=== PATIENT | male | born 1955 | race Caucasian/White ===

== ENCOUNTER → 2016-06-09 | Outpatient (CLI) | payer OTHER ==
[~2016-06-09] MED LIST: ASP325T PO; ATOR80TA PO; CEFU500T5 PO; CLOP75TA; DABI150C5 PO; METO-333 PO; MTP25TSR PO; NTR.4SL SL; OXYC-12 PO; RANO500T2; SIMV40TA4
== END ==
LOC: RAD 11:12
PROVIDERS: ATTEND Internal Medicine Cardiovascular Disease
DX: I73.9 Peripheral vascular disease, unspecified (principal); I25.10 Atherosclerotic heart disease of native coronary artery without angina pectoris; I49.5 Sick sinus syndrome
CPT/HCPCS: 93923

== ENCOUNTER → 2018-02-01 | Outpatient (CLI) | payer OTHER ==
[~2018-02-01] MED LIST changes: +CATHETER FLUSH 10 ML SYR IV PRN; +REGADENOSON 0.4 MG/5 ML SYR (LEXISCAN) IV ONE
[2018-02-01 09:29] VITALS: BP 120/83
[2018-02-01 09:32] VITALS: BP 111/79
[2018-02-01 09:33] VITALS: BP 133/84
--- NOTE | 2018-02-01 14:55 | STRESS TEST ---
DATE OF SERVICE: 02/01/2018 RESTING AND POST REGADENOSON TECHNETIUM-99M TETROFOSMIN SPECT CT IMAGING ORDERING PHYSICIAN: Comfort Rock MD, CHAGO, FACP, FACC. PRIMARY PHYSICIAN: Dr. Garcia. CLINICAL DIAGNOSIS: Shortness of breath. Baseline images were carried out after injection of 10.77 mCi of technetium-99m Tetrofosmin. This was followed by 0.4 mg regadenoson and 32.4 mCi of technetium-99m Tetrofosmin for stress imaging. The electrocardiogram showed paced ventricular rhythm. There is underlying atrial fibrillation. [place] rhythm is seen from time to time. There is nonspecific ST and T-wave abnormality with the tolowa dee-ni' rhythm. The patient noted some lightheadedness following regadenoson infusion, which resolved in a few minutes. Review of images at rest and following stress does not indicate any distinct perfusion defects consistent with significant myocardial ischemia or infarction. Gated images show global impairment of left ventricular systolic function with global hypokinesis and left ventricular ejection fraction is calculated to be 21%. CONCLUSIONS: 1. No evidence of significant myocardial ischemia or infarction. 2. Global hypokinesis of the left ventricle. 3. Impairment of left ventricular systolic function with a calculated ejection fraction of 21%. Job ID: [id number] DocumentID: [id number] Dictated Date: 02/01/2018 12:26:57 Pharmacy Technician Instructor Date: 02/01/2018 14:54:24 Dictated By: COMFORT ROCK MD, CHAGO, FACP, FACC,
== END ==
LOC: CARD 07:48
PROVIDERS: ATTEND Internal Medicine Cardiovascular Disease
DX: I48.0 Paroxysmal atrial fibrillation (principal); R06.02 Shortness of breath; R07.89 Other chest pain; E78.5 Hyperlipidemia, unspecified; Z72.0 Tobacco use
CPT/HCPCS: 78452; 93017

== ENCOUNTER → 2018-02-28 | Outpatient (CLI) | payer OTHER ==
[~2018-02-28] MED LIST changes: -CATHETER FLUSH 10 ML SYR IV PRN; -REGADENOSON 0.4 MG/5 ML SYR (LEXISCAN) IV ONE
== END ==
LOC: CARD 09:30
PROVIDERS: ATTEND Nurse Practitioner Family
DX: I42.0 Dilated cardiomyopathy (principal); I48.2 Chronic atrial fibrillation; I08.1 Rheumatic disorders of both mitral and tricuspid valves
CPT/HCPCS: 93225; 93226; 93306

== ENCOUNTER 2018-11-26 21:49 | Inpatient (IN) | payer OTHER ==
[~2018-11-26] VITALS: Ht 170.2 cm; Wt 77.5 kg
--- OUTSIDE RECORDS SUMMARY | 2018-11-26 21:54 | XMS REPORT | Continuity of Care Document ---
Author Organization Unknown Address Unknown Allergies Active Description Code Type Severity Reaction Onset Reported/Identified Relationship to Patient Clinical Status Yes cortisone [id number] Drug Allergy Mild N/A 09/18/2008 Yes Isosorbide Mononitrate [id number] Drug Allergy Unknown N/A 02/26/2011 Medications There is no data. Problems Date Dx Coded Attending Type Code Diagnosis Diagnosed By 02/18/2011 Ot 272.4 HYPERLIPIDEMIA NEC/NOS 02/18/2011 Ot 305.1 TOBACCO USE DISORDER 02/18/2011 Ot 414.01 CORONARY ATHEROSCLEROSIS OF [place] CORON 02/18/2011 Ot 427.81 SINOATRIAL NODE DYSFUNCT 02/18/2011 Ot 530.81 ESOPHAGEAL REFLUX 02/18/2011 Ot 786.59 CHEST PAIN NEC 02/18/2011 Ot V58.66 LONG-TERM (CURRENT) USE OF ASPIRIN 02/18/2011 Ot V58.69 OTH MED,LT,CURRENT USE 02/27/2011 Ot 413.9 ANGINA PECTORIS NEC/NOS 02/27/2011 Ot 414.01 CORONARY ATHEROSCLEROSIS OF [place] CORON 02/27/2011 Ot 427.31 ATRIAL FIBRILLATION 02/27/2011 Ot 427.32 ATRIAL FLUTTER 02/27/2011 Ot 427.81 SINOATRIAL NODE DYSFUNCT 02/27/2011 Ot 780.79 OTH MALAISE FATIGUE 02/27/2011 Ot V58.61 ANTICOAGULANTS,LT,CURRENT USE 02/27/2011 Ot V58.66 LONG-TERM (CURRENT) USE OF ASPIRIN 02/27/2011 Ot V58.69 OTH MED,LT,CURRENT USE 02/05/2016 ARSENIO WILSON GARNETTER Ot E78.4 OTHER HYPERLIPIDEMIA 02/05/2016 ARSENIO WILSON GARNETTER Ot I25.10 ATHSCL HEART DISEASE OF [place] CORONARY 02/05/2016 ARSENIO WILSON GARNETTER Ot I48.2 CHRONIC ATRIAL FIBRILLATION 02/05/2016 ARSENIO WILSON GARNETTER Ot I49.5 SICK SINUS SYNDROME 02/05/2016 BAIMAARSENIO L GARNETTER Ot R07.9 CHEST PAIN, UNSPECIFIED 02/05/2016 BAIMA, ARSENIO L GARNETTER Ot E78.4 OTHER HYPERLIPIDEMIA 02/05/2016 BAIMA, ARSENIO L GARNETTER Ot I25.10 ATHSCL HEART DISEASE OF [place] CORONARY 02/05/2016 BAIMA, ARSENIO L GARNETTER Ot I48.2 CHRONIC ATRIAL FIBRILLATION 02/05/2016 BAIMA, ARSENIO L GARNETTER Ot I49.5 SICK SINUS SYNDROME 02/05/2016 BAIMA, ARSENIO L GARNETTER Ot R07.9 CHEST PAIN, UNSPECIFIED 02/25/2016 BAIMA, ARSENIO L GARNETTER Ot E78.4 OTHER HYPERLIPIDEMIA 02/25/2016 BAIMA, ARSENIO L GARNETTER Ot I25.10 ATHSCL HEART DISEASE OF [place] CORONARY 02/25/2016 BAIMA ARSENIO L GARNETTER Ot I48.2 CHRONIC ATRIAL FIBRILLATION 02/25/2016 BAIMA, ARSENIO L GARNETTER Ot I49.5 SICK SINUS SYNDROME 02/25/2016 BAIMA ARSENIO L GARNETTER Ot R07.9 CHEST PAIN, UNSPECIFIED 03/05/2016 Ot 414.00 CORON ATHEROSCLER NOS TYPE VESSEL, NATIV 03/05/2016 Ot 427.31 ATRIAL FIBRILLATION 03/05/2016 Ot 427.89 CARDIAC DYSRHYTHMIAS NEC 03/05/2016 Ot 780.79 OTH MALAISE FATIGUE 03/05/2016 Ot V58.66 LONG-TERM (CURRENT) USE OF ASPIRIN 03/05/2016 Ot V58.69 OTH MED,LT,CURRENT USE 03/05/2016 Ot V72.63 PRE-PROCEDURAL LABORATORY EXAMINATION 03/05/2016 Ot V72.81 [id number] CARDIOVASCULAR 03/05/2016 COLLEEN JARAMILLO FACC, FELICIA FACP CCDS Ot 272.4 HYPERLIPIDEMIA NEC/NOS 03/05/2016 COLLEEN JARAMILLO FACC, FELICIA FACP CCDS Ot 305.1 TOBACCO USE DISORDER 03/05/2016 COLLEEN JARAMILLO FACC, FELICIA FACP CCDS Ot 414.00 CORON ATHEROSCLER NOS TYPE VESSEL, NATIV 03/05/2016 COLLEEN JARAMILLO FACC, FELICIA FACP CCDS Ot 427.31 ATRIAL FIBRILLATION 03/05/2016 COLLEEN JARAMILLO FACC, FELICIA FACP CCDS Ot 427.32 ATRIAL FLUTTER 03/05/2016 COLLEEN JARAMILLO FACC, ALI FACP CCDS Ot 427.81 SINOATRIAL NODE DYSFUNCT 03/05/2016 COLLEEN JARAMILLO FACC, ALI FACP CCDS Ot 530.81 ESOPHAGEAL REFLUX 03/05/2016 COLLEEN JARAMILLO FACC, ALI FACP CCDS Ot 786.50 CHEST PAIN NOS 03/05/2016 BAIMA, ARSENIO L GARNETTER Ot E78.4 OTHER HYPERLIPIDEMIA 03/05/2016 BAIMA, ARSENIO L GARNETTER Ot I25.10 ATHSCL HEART DISEASE OF [place] CORONARY 03/05/2016 BAIMA, ARSENIO L GARNETTER Ot I48.2 CHRONIC ATRIAL FIBRILLATION 03/05/2016 BAIMA, ARSENIO L GARNETTER Ot I49.5 SICK SINUS SYNDROME 03/05/2016 BAIMA, ARSENIO L GARNETTER Ot R07.9 CHEST PAIN, UNSPECIFIED 03/05/2016 BAIMA, ARSENIO L GARNETTER Ot E78.4 OTHER HYPERLIPIDEMIA 03/05/2016 BAIMA, ARSENIO L GARNETTER Ot I25.10 ATHSCL HEART DISEASE OF [place] CORONARY 03/05/2016 BAIMA, ARSENIO L GARNETTER Ot I42.9 CARDIOMYOPATHY, UNSPECIFIED 03/05/2016 BAIMA, ARSENIO L GARNETTER Ot I48.2 CHRONIC ATRIAL FIBRILLATION 03/05/2016 BAIMA, ARSENIO L GARNETTER Ot I49.8 OTHER SPECIFIED CARDIAC ARRHYTHMIAS 03/05/2016 BAIMA, ARSENIO L GARNETTER Ot I65.23 OCCLUSION AND STENOSIS OF BILATERAL [place] 03/05/2016 BAIMA, ARSENIO L GARNETTER Ot I73.9 PERIPHERAL VASCULAR DISEASE, UNSPECIFIED 03/05/2016 BAIMA, ARSENIO L GARNETTER Ot R06.09 OTHER FORMS OF DYSPNEA 03/26/2016 BAIMA, ARSENIO L GARNETTER Ot E78.4 OTHER HYPERLIPIDEMIA 03/26/2016 BAIMA, ARSENIO L GARNETTER Ot I25.10 ATHSCL HEART DISEASE OF [place] CORONARY 03/26/2016 BAIMA, ARSENIO L GARNETTER Ot I42.9 CARDIOMYOPATHY, UNSPECIFIED 03/26/2016 BAIMA, ARSENIO L GARNETTER Ot I48.2 CHRONIC ATRIAL FIBRILLATION 03/26/2016 BAIMA, ARSENIO L GARNETTER Ot I49.8 OTHER SPECIFIED CARDIAC ARRHYTHMIAS 03/26/2016 BAIMA, ARSENIO L GARNETTER Ot I65.23 OCCLUSION AND STENOSIS OF BILATERAL [place] 03/26/2016 BAIMA, ARSENIO L GARNETTER Ot I73.9 PERIPHERAL VASCULAR DISEASE, UNSPECIFIED 03/26/2016 ARSENIO WILSON GARNETTER Ot R06.09 OTHER FORMS OF DYSPNEA 06/10/2016 COLLEEN BRITTON, ALI FACP CCDS Ot I25.10 ATHSCL HEART DISEASE OF [place] CORONARY 06/10/2016 COLLEEN JARAMILLO FAC, ALI FACP CCDS Ot I49.5 SICK SINUS SYNDROME 06/10/2016 COLLEEN JARAMILLO [facility], ALI FACP CCDS Ot I73.9 PERIPHERAL VASCULAR DISEASE, UNSPECIFIED 06/25/2016 COLLEEN JARAMILLO FAC, ALI FACP CCDS Ot I25.10 ATHSCL HEART DISEASE OF [place] CORONARY 06/25/2016 COLLEEN JARAMILLO [facility], ALI FACP CCDS Ot I49.5 SICK SINUS SYNDROME 06/25/2016 COLLEEN JARAMILLO [facility], ALI FACP CCDS Ot I73.9 PERIPHERAL VASCULAR DISEASE, UNSPECIFIED 02/02/2018 COLLEEN JARAMILLO [facility], ALI FACP CCDS Ot E78.5 HYPERLIPIDEMIA, UNSPECIFIED 02/02/2018 COLLEEN JARAMILLO [facility], ALI FACP CCDS Ot I48.0 PAROXYSMAL ATRIAL FIBRILLATION 02/02/2018 COLLEEN JARAMILLO [facility], ALI FACP CCDS Ot R06.02 SHORTNESS OF BREATH 02/02/2018 COLLEEN JARAMILLO [facility], ALI FACP CCDS Ot R07.89 OTHER CHEST PAIN 02/02/2018 COLLEEN JARAMILLO [facility], ALI FACP CCDS Ot Z72.0 TOBACCO USE Procedures There is no data. Results Test Result Range LIPID PANEL - 09/15/18 12:05 CHOLESTEROL, TOTAL 120 mg/dL <200 HDL CHOLESTEROL 59 mg/dL >40 TRIGLYCERIDES 86 mg/dL <150 LDL-CHOLESTEROL 44 mg/dL (calc) NRG CHOL/HDLC RATIO 2.0 (calc) <5.0 NON HDL CHOLESTEROL 61 mg/dL (calc) <130 CMP - 09/15/18 12:05 GLUCOSE 88 mg/dL 65-99 UREA NITROGEN (BUN) 6 mg/dL 7-25 CREATININE 0.81 mg/dL 0.70-1.25 eGFR NON-AFR. [place] 95 mL/min/1.73m2 > OR=60 eGFR 110 mL/min/1.73m2 > OR=60 BUN/CREATININE RATIO 7 (calc) 6-22 SODIUM 142 mmol/L 135-146 POTASSIUM 4.3 mmol/L 3.5-5.3 CHLORIDE 109 mmol/L 98-110 CARBON DIOXIDE 27 mmol/L 20-32 CALCIUM 8.6 mg/dL 8.6-10.3 PROTEIN, TOTAL 6.0 g/dL 6.1-8.1 ALBUMIN 3.8 g/dL 3.6-5.1 GLOBULIN 2.2 g/dL (calc) 1.9-3.7 ALBUMIN/GLOBULIN RATIO 1.7 (calc) 1.0-2.5 BILIRUBIN, TOTAL 0.4 mg/dL 0.2-1.2 ALKALINE PHOSPHATASE 76 U/L 40-115 AST 20 U/L 10-35 ALT 17 U/L 9-46 Encounters ACCT No. Visit Date/Time Discharge Status Pt. Type Provider Facility Loc./Unit Complaint [id number] 11/25/2018 14:00:00 ACT Outpatient PATRICIO MARY Duarte [facility] [id number] 09/15/2018 11:20:00 Document Registration [id number] 02/28/2018 10:00:00 02/28/2018 23:59:59 CLS Preadmit ARSENIO WILSON [facility] CARD DILATED CARDIOMYOPATHY [id number] 02/01/2018 07:48:00 02/01/2018 23:59:59 CLS Outpatient FELICIA MACIAS MD, FACC, FACP CCDS [facility] CARD R06.02 SOB [id number] 06/09/2016 11:12:00 06/09/2016 23:59:59 CLS Outpatient FELICIA MACIAS MD, FACC, FACP CCDS [facility] RAD CLAUDICATION,CAD [id number] 03/05/2016 13:09:00 03/05/2016 23:59:59 CLS Outpatient ARSENIO WILSON [facility] CARD CARIOMYOPATHY,CAD,CAROTID ARTERIAL DISEASE,HLP [id number] 02/04/2016 07:23:00 02/04/2016 23:59:59 CLS Outpatient ARSENIO WILSON [facility] CARD CHEST PAIN,CAD,CHRONIC AFIB,HLP [id number] 07/17/2013 10:43:00 07/17/2013 23:59:59 CLS Outpatient COLLEEN JARAMILLO FACC, FELICIA BRASWELL CCDS [facility] HLP,CAD,AFIB [id number] 02/26/2011 05:31:00 Document Registration [id number] 02/25/2011 10:11:00 Document Registration [id number] 02/17/2011 15:40:00 Document Registration
[2018-11-26] MEDS ORDERED: NS IV 1000 ML 1,000 ML IV SCH (21:58)
[2018-11-26] MEDS ORDERED: FOLIC ACID 1 MG TAB PO ONE (22:00)
[2018-11-26] MEDS ORDERED: THIAMINE 100 MG (VITAMIN B-1) TAB PO ONE (22:00)
--- NOTE | 2018-11-26 22:08 | ED Fall/Injury ---
General Chief Complaint: Hip/Pelvic Problems Stated Complaint: FALL, LEFT ANKLE PAIN Source: patient Exam Limitations: no limitations History of Present Illness Date Seen by Provider: Nov 26, 2018 Time Seen by Provider: 21:44 Initial Comments Patient presents to ER by private conveyance. EMS from his bar where he was dropped off about 5 or 6:00 his evening by his and he says he had at least 5 beers tonight. He then said his leg gave out from underneath him and his been having problems with his left knee. He fell and is now having pain in his left hip region. No history of hip fracture. He says he sees Mary Curry. He denies any pain elsewhere. He says did not hit his head have shortness of breath cough chest pain. He does take warfarin. Allergies and Home Medications Allergies Coded Allergies: cortisone (Unverified Allergy, Mild, 09/18/08) Isosorbide Mononitrate (Unverified Allergy, Unknown, 02/26/11) Home Medications Aspirin 325 Mg Tab, 325 MG PO DAILY, (Reported) Atorvastatin Calcium 80 Mg Tablet, 80 MG PO HS, (Reported) Cefuroxime Axetil 500 Mg Tablet, 500 MG PO BID, (Reported) FOR 5 DAYS Dabigatran Etexilate Mesylate 150 Mg Capsule, 150 MG PO BID, (Reported) HOLD ON 02-28, RESUME ON - Nitroglycerin 0.4 Mg Subl, 0.4 MG SL NEEDED, (Reported) Oxycodone Hcl/Acetaminophen 1 Each Tablet, 1 TAB PO Q 8 HRS. PRN PAIN, (Reported) Patient Home Medication List Home Medication List Reviewed: Yes Review of Systems Review of Systems Constitutional: No chills, No diaphoresis Eyes: Denies Blindness, Denies Blurred Vision Ears, Nose, Mouth, Throat: denies ear pain, denies ear discharge Respiratory: No cough, No short of breath Cardiovascular: No chest pain, No edema Gastrointestinal: No abdominal pain, No constipation, No diarrhea, No nausea Genitourinary: No discharge, No dysuria Musculoskeletal: No back pain, No joint pain Skin: No pruritus, No rash Past Fnqprfm-Gizurq-Zwwfke Hx Patient Social History Alcohol Use: Regular Use Number of Drinks Today: 6 Alcohol Beverage of Choice: Beer Recreational Drug Use: No Smoking Status: Current Everyday Smoker Recent Foreign Travel: No Contact w/Someone Who Travel: No Recent Hopitalizations: No (BROKEN ANKLE LEFT APPRX 1995, RIGHT SHOULDER SURG APPRX 1982) Past Medical History Surgeries: Yes (RIGHT SHOULDER AND LEFT ANKLE SURG, hernia repair 1999) Respiratory: Yes Cardiac: Yes Neurological: No Reproductive Disorders: No Gastrointestinal: No Musculoskeletal: No Endocrine: No Psychosocial: No Blood Disorders: No Physical Exam Vital Signs Vital Signs - First Documented 11/26/18 11/26/18 21:58 23:30 Temp 97.6 Pulse 120 Resp 18 B/P (MAP) 127/100 (109) Pulse Ox 95 O2 Delivery Room Air Capillary Refill : Height, Weight, BMI Height: 5'7.00" Weight: 160lbs. oz. 72.465794yt; BMI Method: General Appearance: WD/WN, no apparent distress HEENT: PERRL/EOMI, normal ENT inspection, TMs normal, pharynx normal, other (negative for Barrientos sign and raccoon eyes or hemotympanum) Neck: non-tender, full range of motion, normal inspection Cardiovascular: normal peripheral pulses, regular rate, rhythm, no edema Respiratory: chest non-tender, lungs clear, normal breath sounds, no respiratory distress, no accessory muscle use Peripheral Pulses: 2+ Dorsalis Pedis (R), 2+ Left Dors-Pedis (L) Gastrointestinal: normal bowel sounds, non tender, soft Neurologic/Psychiatric: ear nose and throat specialist II-XII nml as tested, no motor/sensory deficits, alert, normal mood/affect, oriented x 3, other (Mild slurring of speech and tangential radiation) Skin: normal color, warm/dry Ramona Coma Score Best Eye Response: (4) Open Spontaneously Best Verbal Response: (5) Oriented Best Motor Response: (6) Obeys Commands Ramona Total: 15 Progress/Results/Core Measures Results/Orders Lab Results Laboratory Tests Test 11/26/18 21:53 11/26/18 22:10 11/26/18 22:56 Range/Units Prothrombin Time 27.9 H 12.2-14.7 SEC INR Comment 2.5 H 0.8-1.4 Activated Partial Thromboplast Time 34 24-35 SEC Sodium Level 134 L 135-145 MMOL/L Potassium Level 3.7 3.6-5.0 MMOL/L Chloride Level 101 98-107 MMOL/L Carbon Dioxide Level 19 L 21-32 MMOL/L Anion Gap 14 5-14 MMOL/L Blood Urea Nitrogen 5 L 7-18 MG/DL Creatinine 0.79 0.60-1.30 MG/DL Estimat Glomerular Filtration Rate > 60 BUN/Creatinine Ratio 6 Glucose Level 85 70-105 MG/DL Calcium Level 8.2 L 8.5-10.1 MG/DL Corrected Calcium 8.4 L 8.5-10.1 MG/DL Magnesium Level 2.1 1.8-2.4 MG/DL Total Bilirubin 0.2 0.1-1.0 MG/DL Aspartate Amino Transf (AST/SGOT) 25 5-34 U/L Alanine Aminotransferase (ALT/SGPT) 22 0-55 U/L Alkaline Phosphatase 81 40-136 U/L Total Protein 6.3 L 6.4-8.2 GM/DL Albumin 3.7 3.2-4.5 GM/DL Serum Alcohol 230 H <10 MG/DL Urine Color YELLOW Urine Clarity CLEAR Urine pH 5 5-9 Urine Specific [place] 1.020 1.016-1.022 Urine Protein NEGATIVE NEGATIVE Urine Glucose (UA) NEGATIVE NEGATIVE Urine Ketones NEGATIVE NEGATIVE Urine Nitrite NEGATIVE NEGATIVE Urine Bilirubin NEGATIVE NEGATIVE Urine Urobilinogen NORMAL NORMAL MG/DL Urine Leukocyte Esterase 1+ H NEGATIVE Urine RBC (Auto) 4+ H NEGATIVE Urine RBC RARE /HPF Urine WBC 0-2 /HPF Urine Squamous Epithelial Cells RARE /HPF Urine Crystals NONE /LPF Urine Bacteria TRACE /HPF Urine Casts PRESENT /LPF Urine Hyaline Casts 0-2 H /LPF Urine Mucus SMALL H /LPF Urine Culture Indicated NO Urine Opiates Screen POSITIVE H NEGATIVE Urine Oxycodone Screen NEGATIVE NEGATIVE Urine Methadone Screen NEGATIVE NEGATIVE Urine Propoxyphene Screen NEGATIVE NEGATIVE Urine Barbiturates Screen NEGATIVE NEGATIVE Ur Tricyclic Antidepressants Screen NEGATIVE NEGATIVE Urine Phencyclidine Screen NEGATIVE NEGATIVE Urine Amphetamines Screen NEGATIVE NEGATIVE Urine Methamphetamines Screen NEGATIVE NEGATIVE Urine Benzodiazepines Screen NEGATIVE NEGATIVE Urine Cocaine Screen NEGATIVE NEGATIVE Urine Cannabinoids Screen NEGATIVE NEGATIVE White Blood Count 10.4 4.3-11.0 10^3/uL Red Blood Count 4.36 4.35-5.85 10^6/uL Hemoglobin 13.4 13.3-17.7 G/DL Hematocrit 40 40-54 % Mean Corpuscular Volume 92 80-99 FL Mean Corpuscular Hemoglobin 31 25-34 PG Mean Corpuscular Hemoglobin Concent 33 32-36 G/DL Red Cell Distribution Width 13.4 10.0-14.5 % Platelet Count 349 130-400 10^3/uL Mean Platelet Volume 8.6 7.4-10.4 FL Neutrophils (%) (Auto) 71 42-75 % Lymphocytes (%) (Auto) 17 12-44 % Monocytes (%) (Auto) 11 0-12 % Eosinophils (%) (Auto) 1 0-10 % Basophils (%) (Auto) 0 0-10 % Neutrophils # (Auto) 7.4 1.8-7.8 X 10^3 Lymphocytes # (Auto) 1.8 1.0-4.0 X 10^3 Monocytes # (Auto) 1.1 H 0.0-1.0 X 10^3 Eosinophils # (Auto) 0.1 0.0-0.3 10^3/uL Basophils # (Auto) 0.0 0.0-0.1 10^3/uL My Orders Orders - GLENDY FRAZIER Ct Head/Cervical Spine Wo (11/26/18 21:58) Chest 1 View, Ap/Pa Only (11/26/18 21:58) Pelvis With Left Hip 2-3 Views (11/26/18 21:58) Alcohol (11/26/18 21:58) Cbc With Automated Diff (11/26/18 21:58) Comprehensive Metabolic Panel (11/26/18 21:58) Drug Screen Stat (Urine) (11/26/18 21:58) Magnesium (11/26/18 21:58) Protime With Inr (11/26/18 21:58) Partial Thromboplastin Time (11/26/18 21:58) Ua Culture If Indicated (11/26/18 21:58) Ed Iv/Invasive Line Start (11/26/18 21:58) Ns Iv 1000 Ml (Sodium Chloride 0.9%) (11/26/18 21:58) Thiamine Tablet (Vitamin B-1 Tablet) (11/26/18 22:00) Folic Acid Tablet (Folic Acid Tablet) (11/26/18 22:00) Thiamine Injection (Vitamin B-1 Injectio (11/26/18 23:30) Thiamine Injection (Vitamin B-1 Injectio (11/26/18 23:21) Fentanyl Injection (Sublimaze Injection (11/26/18 23:30) Ekg Tracing (11/27/18 00:00) Medications Given in ED Current Medications Medications Dose Ordered Sig/Lisa Route Start Time Stop Time Status Last Admin Dose Admin Fentanyl Citrate 100 mcg STK-MED ONCE .ROUTE 11/26/18 23:30 11/26/18 23:35 DC 11/26/18 23:36 50 MCG Folic Acid 1 mg ONCE ONCE PO 11/26/18 22:00 11/26/18 22:04 DC 11/26/18 22:54 1 MG Thiamine HCl 100 mg ONCE ONCE IV 11/26/18 23:30 11/26/18 23:31 DC 11/26/18 23:30 100 MG Vital Signs/I&O 11/26/18 11/26/18 21:58 23:30 Temp 97.6 Pulse 120 121 Resp 18 18 B/P (MAP) 127/100 (109) 96/76 (83) Pulse Ox 95 O2 Delivery Room Air Progress Progress Note #1: Time: 22:[address] of the head and neck, x-ray of the chest and left hip. Labs urinalysis drug screen and alcohol level. 1 L fluids, thiamine and folate. Progress Note #2: Time: 00:32 Progress Note Patient's heart rate shot up to the 180-190 range irregular. On the monitor to look like A. fib with rapid ventricular response. Lasted spontaneously for about 1 minute. IV fluids still going on the first liter. Pressure bag. We'll monitor Cardizem drip. He is now down in the 120-140 range. The patient states he is supposed to take diltiazem but he never takes it. Initial ECG Impression Date: Nov 27, 2018 Initial ECG Impression Time: 00:00 Initial ECG Rate: 109 Initial ECG Rhythm: A Fib/Flutter Initial ECG Intervals: QT (442) Initial ECG Impression: Atrial Fibrillation Comment Atrial fibrillation without rapid ventricular response. No ST elevation or depression. Diagnostic Imaging Diagonstic Imaging: CT (noncontrast) Plain Films/CT/US/NM/MRI: c-spine, head Comments No acute intracranial processes. No C-spine fracture or malalignment. Reviewed: Reviewed by Me Diagonstic Imaging: Xray Plain Films/CT/US/NM/MRI: chest Comments No acute cardiopulmonary processes noted. Pacemaker seen. Reviewed: Reviewed by Me Diagonstic Imaging: Xray Plain Films/CT/US/NM/MRI: hip (L) Comments Distal neck fracture of the left femur nondisplaced non-angulated, closed. Reviewed: Reviewed by Me Departure Communication (Admissions) Time/Spoke to Admitting Phy: 00:[address] Cotto and she agrees to admit the patient. Time/Spoke to Consulting Phy: 00:[address] Cavanaugh and he agrees to consult and see the patient the morning. Discussed case with Dr. Nielson at 0035: He agrees with Keith lanier. Impression Primary Impression: Fall Qualified Codes: W19.XXXA - Unspecified fall, initial encounter Additional Impressions: Closed left femoral fracture Qualified Codes: S72.002A - Fracture of unspecified part of neck of left femur, initial encounter for closed fracture Alcohol dependence Qualified Codes: F10.20 - Alcohol dependence, uncomplicated Disposition: ADMITTED INPATIENT Condition: Stable Admissions Decision to Admit Reason: Admit from ER (General) Decision to Admit/Date: Nov 26, 2018 Time/Decision to Admit Time: 23:48 Departure-Patient Inst. Referrals: ADELA SALDIVAR MD (PCP) Primary Care Physician MARY CURRY APRN (Family) Primary Care Physician GLENDY FRAZIER Nov 26, 2018 22:08
[2018-11-26 22:15] LABS: INR 2.5 (0.8-1.4); PROTHROMBIN TIME PATIENT 27.9 SEC (12.2-14.7)
[2018-11-26 22:15] LABS: BILIRUBIN,URINE NEGATIVE (NEGATIVE); CLARITY,URINE CLEAR; COLOR,URINE YELLOW; GLUCOSE, URINE (UA) NEGATIVE (NEGATIVE); KETONES,URINE NEGATIVE (NEGATIVE); LEUKOCYTE ESTERASE ,URINE 1+ (NEGATIVE); NITRITE,URINE NEGATIVE (NEGATIVE); PH,URINE 5 (5-9); PROTEIN,URINE NEGATIVE (NEGATIVE); UROBILINOGEN,URINE NORMAL (NORMAL)
[2018-11-26 22:21] LABS: BACTERIA,URINE TRACE /HPF; RBC,URINE RARE /HPF; WBC,URINE 0-2 /HPF
[2018-11-26 22:22] LABS: HYALINE CASTS, URINE 0-2 /LPF; SQUAMOUS EPITHELIAL CELL,UR RARE /HPF
[2018-11-26 22:23] LABS: ALANINE AMINOTRANSFERASE 22 U/L (0-55); ALBUMIN 3.7 GM/DL (3.2-4.5); ALKALINE PHOSPHATASE 81 U/L (40-136); BILIRUBIN,TOTAL 0.2 MG/DL (0.1-1.0); BUN/CREATININE RATIO 6; CALCIUM 8.2 MG/DL (8.5-10.1); CARBON DIOXIDE 19 MMOL/L (21-32); CHLORIDE 101 MMOL/L (98-107); CREATININE SERUM 0.79 MG/DL (0.60-1.30); GFR ESTIMATED > 60; GLUCOSE 85 MG/DL (70-105); MAGNESIUM 2.1 MG/DL (1.8-2.4); POTASSIUM 3.7 MMOL/L (3.6-5.0); SODIUM 134 MMOL/L (135-145); TOTAL PROTEIN 6.3 GM/DL (6.4-8.2)
[2018-11-26 22:26] LABS: AMPHETAMINE SCREEN, URINE NEGATIVE (NEGATIVE); BARBITURATE SCREEN URINE NEGATIVE (NEGATIVE); BENZODIAZEPINES SCREEN URINE NEGATIVE (NEGATIVE); CANNABINOID SCREEN, URINE NEGATIVE (NEGATIVE); COCAINE SCREEN URINE NEGATIVE (NEGATIVE); METHADONE STAT NEGATIVE (NEGATIVE); METHAMPHETAMINE SCREEN URINE S NEGATIVE (NEGATIVE); OPIATE SCREEN URINE POSITIVE (NEGATIVE); OXYCODONE STAT NEGATIVE (NEGATIVE); PROPOXYPHENE STAT NEGATIVE (NEGATIVE); TRICYCLIC ANTIDEPRESSANTS SCRE NEGATIVE (NEGATIVE)
[2018-11-26 23:02] LABS: BASOPHILS % (AUTO) 0 % (0-10); EOSINOPHILS # (AUTO) 0.1 10^3/uL (0.0-0.3); EOSINOPHILS % (AUTO) 1 % (0-10); HEMATOCRIT 40 % (40-54); HEMOGLOBIN 13.4 G/DL (13.3-17.7); LYMPHOCYTES # (AUTO) 1.8 X 10^3 (1.0-4.0); LYMPHOCYTES % (AUTO) 17 % (12-44); MEAN CORPUSCULAR HEMOGLOBIN 31 PG (25-34); MEAN CORPUSCULAR HGB CONC 33 G/DL (32-36); MEAN CORPUSCULAR VOLUME 92 FL (80-99); MEAN PLATELET VOLUME 8.6 FL (7.4-10.4); MONOCYTES # (AUTO) 1.1 X 10^3 (0.0-1.0); MONOCYTES % (AUTO) 11 % (0-12); NEUTROPHILS # (AUTO) 7.4 X 10^3 (1.8-7.8); NEUTROPHILS % (AUTO) 71 % (42-75); PLATELET COUNT 349 10^3/uL (130-400); RED CELL DISTRIBUTION WIDTH 13.4 % (10.0-14.5); WHITE BLOOD COUNT 10.4 10^3/uL (4.3-11.0)
[2018-11-26] MEDS ORDERED: THIAMINE 100 MG/ML 2 ML (VITAMIN B-1) VIAL ONE (23:21)
[2018-11-26] MEDS ORDERED: fentaNYL INJECTION 100 MCG/2 ML AMP ONE (23:30)
[2018-11-26] MEDS ORDERED: THIAMINE 100 MG/ML 2 ML (VITAMIN B-1) VIAL IV ONE (23:30)
--- NOTE | 2018-11-26 23:30 | NUR ---
ASSUMED CARE OF THIS PATIENT AT THIS TIME.
[2018-11-27] VITALS (22 sets, daily range): BP systolic 101–126; BP diastolic 65–106
[2018-11-27] MEDS ORDERED: fentaNYL INJECTION 100 MCG/2 ML AMP ONE (00:01)
[2018-11-27] MEDS ORDERED: fentaNYL INJECTION 100 MCG/2 ML AMP IVP ONE (00:15)
[2018-11-27] MEDS ORDERED: NS (IVPB) 100 ML ONE ×2 (00:47→19:55)
[2018-11-27] MEDS: DILTIAZEM IV FOR DRIP 125 MG in NS (IVPB) 100 ML IV SCH ×2 (00:57→20:11)
--- NOTE | 2018-11-27 02:00 | NUR ---
LINSEY CASANOVA admitted to room CU8-1, with an admitting diagnosis of Afib/RVR,fx left femur, on 11/27/18 from ED, accompanied by .LINSEY CASANOVA introduced to surroundings, call light, bed controls, phone, TV, temperature control, lights, meal times, smoking policy, visitor policy, side rail policy, bathrooms and showers. Patient Rights given to patient in the handbook. LINSEY CASANOVA verbalizes understanding that [facility] is not responsible for the loss or damage to any personal effects or valuables that are kept in the patients possession during their hospitalization. The following Patient Care Plans were discussed with the patient and : Discharge Planning, pain,activity, and room orientation. LINSEY CASANOVA verbalizes understanding of Interdisciplinary Patient Education. Patient and/or family were informed about the Rapid Response Team and its purpose.
[2018-11-27] MEDS ORDERED: D5 1/2 NS W/KCL 20 MEQ/L 1,000 ML IV ONE (02:10)
[2018-11-27] MEDS ORDERED: fentaNYL INJECTION 100 MCG/2 ML AMP IVP PRN (02:30)
[2018-11-27] MEDS ORDERED: 1/2 NS IV SOLUTION 1,000 ML IV PRN (02:56)
[2018-11-27] MEDS ORDERED: D5 1/2 NS 1000 ML IV SOLUTION 1,000 ML IV PRN (03:00)
[2018-11-27] MEDS ORDERED: fentaNYL INJECTION 100 MCG/2 ML AMP IV PRN (03:00)
[2018-11-27] MEDS ORDERED: ONDANSETRON 4 MG/2 ML (SDV) Z0FRAN IVP PRN (03:00)
[2018-11-27] MEDS ORDERED: ONDANSETRON 4 MG (ZOFRAN) ORAL DISSOLVE TAB SL PRN (03:00)
[2018-11-27] MEDS ORDERED: LORazepam 1 MG (ATIVAN) TAB PO PRN (03:00)
[2018-11-27] MEDS ORDERED: SENNA W/DOCUSATE (SENOKOT S) TABLET PO PRN (03:00)
[2018-11-27] MEDS ORDERED: LORazepam INJ 2 MG/ML (ATIVAN) VIAL IV PRN (03:00)
[2018-11-27] MEDS ORDERED: ANTACID SUSP 30 ML UDC (MYLANTA) PO PRN (03:00)
[2018-11-27] MEDS ORDERED: LORazepam INJ 2 MG/ML (ATIVAN) VIAL IM/IV PRN (03:00)
[2018-11-27] MEDS ORDERED: ONDANSETRON 4 MG/2 ML (SDV) Z0FRAN IV PRN ×2 (03:00)
[2018-11-27] MEDS: D5 1/2 NS W/KCL 20 MEQ/L 1,000 ML IV SCH ×7 (03:05→23:02)
[2018-11-27] MEDS: fentaNYL INJECTION 100 MCG/2 ML AMP IVP PRN ×9 (05:18→22:29)
[2018-11-27] MEDS: POTASSIUM CL 10MEQ/50ML IVPB 50 ML IV SCH (05:19)
[2018-11-27] MEDS: KCL 20 MEQ TAB (K-DUR) PO SCH (05:19)
[2018-11-27] MEDS: MAGNESIUM 1 GM/100 ML IVPB 100 ML IV SCH (05:19)
--- NOTE | 2018-11-27 07:25 | Diagnostic Imaging Report ---
PROCEDURE: CT head and CT cervical spine without contrast. TECHNIQUE: Multiple contiguous axial images were obtained through the brain and cervical spine without the use of intravenous contrast. Sagittal and coronal reformations through the cervical spine were then performed. Auto Exposure Controls were utilized during the CT exam to meet ALARA standards for radiation dose reduction. INDICATION: Status post fall, trauma. COMPARISON: None CT HEAD FINDINGS: The ventricles and sulci are within normal limits. There is no midline shift or mass effect. No evidence for acute intracranial hemorrhage or extra-axial fluid collections. The bony calvarium is intact and the paranasal sinuses are clear. CT CERVICAL SPINE FINDINGS: There is normal alignment and curvature of the cervical spine. There is no evidence for acute bony abnormality. The odontoid is intact. The prevertebral soft tissues are normal. IMPRESSION: 1. No acute intracranial abnormality. 2. No evidence for acute cervical spine fracture or subluxation. A preliminary report was provided by [facility]. Dictated by: Dictated on workstation # [id number]
--- NOTE | 2018-11-27 07:40 | Diagnostic Imaging Report ---
INDICATION: Left hip pain post fall TECHNIQUE: AP pelvis along with 2 views of the left hip, 10:41 PM CORRELATION STUDY: None FINDINGS: The pelvis demonstrates no evidence for acute fracture. The pectineal lines and obturator rings are maintained. Pubic symphysis and SI joints are unremarkable. Right hip with mild joint space narrowing. A slightly comminuted fracture through the intertrochanteric region of proximal left femur is present. The alignment overall is generally anatomic. The femoral head acetabular relationship appears maintained. IMPRESSION: Relatively nondisplaced fracture through the intertrochanteric portion of the left proximal femur. Dictated by: Dictated on workstation # [id number]
--- NOTE | 2018-11-27 07:42 | Diagnostic Imaging Report ---
INDICATION: Left hip pain post fall. TECHNIQUE: Single view chest 10:40 PM. CORRELATION STUDY: 02/26/2011 FINDINGS: Left-sided dual-chamber pacemaker is present. Heart size and mediastinum are stable. The lungs are clear with no consolidating infiltrate. There is no significant effusion or pneumothorax. IMPRESSION: 1. Negative for acute abnormality of the chest. Dictated by: Dictated on workstation # [id number]
[2018-11-27] MEDS ORDERED: THIAMINE INJECTION 100 MG, FOLIC ACID INJECTION 1 MG, MAGNESIUM SULFATE 2 GM, VITAMIN M... IV SCH ×5 (09:00)
--- NOTE | 2018-11-27 15:23 | Consultation-Cardiology ---
HPI-Cardiology Cardiology Consultation: Date of Consultation 11/27/18 Date of Admission Attending Physician Dorothy Cotto MD Admitting Physician Dario Yee MD Consulting Physician Breonna NIELSON MD HPI: Time Seen by a Provider: 15:21 Chief Complaint: Atrial fibrillation This is a 62-year-old gentleman who has history of atrial fibrillation. He denies any other cardiac history. He had a mechanical fall and left hip fracture. Requires hip surgery. The patient denies any chest pain or shortness of breath. He has been on warfarin but does not take any Cardizem. He was started on Cardizem infusion for atrial fibrillation and rapid ventricular rate. Review of Systems-Cardiology Review of Systems Constitutional: As described under HPI; No As described under HPI, No no symptoms reported, No chills, No fever, No lightheadedness Eyes: No As described under HPI, No no symptoms reported, No blindness, No blurred vision, No contact lenses, No drainage, No decreased acuity, No foreign body sensation, No pain, No vision change Ears/Nose/Throat: No As described under HPI, No no symptoms reported, No chronic hearing loss, No ear discharge, No ear pain, No nasal drainage, No ulcerations Respiratory: No no symptoms reported; As described under HPI; No As described under HPI, No cough, No orthopnea, No shortness of breath, No SOB with excertion Cardiovascular: No no symptoms reported; As described under HPI; No As described under HPI, No chest pain, No edema, No irregular heart rate, No lightheadedness; palpitations Gastrointestinal: No no symptoms reported, No As described under HPI, No abdomen distended, No abdominal pain, No blood streaked bowels, No constipation, No diarrhea, No nausea, No vomiting, No stool coloration changes Genitourinary: No As described under HPI, No burning, No dysuria, No discharge, No frequency, No flank pain, No hematuria, No urgency Skin: No rash, No skin related problems, No ulcerations Psychiatric/Neurological: No anxiety, No depression, No seizure, No focal weakness, No syncope Hematologic: No bleeding abnormalities BVL-Ahazav-Oyxljl Hx Patient Social History Alcohol Use: Regular Use Recreational Drug Use: No Smoking Status: Current Everyday Smoker Recent Foreign Travel: No Recent Infectious Disease Expo: No Hospitalization with Isolation: Denies Past Medical History PMH As described under Assessment. Allergies and Home Medications Allergies Coded Allergies: cortisone (Unverified Allergy, Mild, 09/18/08) Isosorbide Mononitrate (Unverified Allergy, Unknown, 02/26/11) Home Medications Aspirin 325 Mg Tab, 325 MG PO DAILY, (Reported) Atorvastatin Calcium 80 Mg Tablet, 80 MG PO HS, (Reported) Cefuroxime Axetil 500 Mg Tablet, 500 MG PO BID, (Reported) FOR 5 DAYS Dabigatran Etexilate Mesylate 150 Mg Capsule, 150 MG PO BID, (Reported) HOLD ON 02-28, RESUME ON 03-01 Nitroglycerin 0.4 Mg Subl, 0.4 MG SL NEEDED, (Reported) Oxycodone Hcl/Acetaminophen 1 Each Tablet, 1 TAB PO Q 8 HRS. PRN PAIN, (Reported) Patient Home Medication List Home Medication List Reviewed: Yes Physical Exam-Cardiology Physical Exam Vital Signs/I&O 11/27/18 11/27/18 11/27/18 11/27/18 03:40 03:40 04:00 05:00 Temp 97.7 Pulse 85 80 Resp 19 21 B/P (MAP) 105/73 (84) 106/71 (83) Pulse Ox 100 100 100 O2 Delivery Nasal Cannula Nasal Cannula Nasal Cannula Nasal Cannula O2 Flow Rate 2.00 2.00 2.00 2.00 11/27/18 11/27/18 11/27/18 11/27/18 06:03 07:00 07:00 07:46 Temp 97.7 Pulse 80 80 80 Resp 12 14 B/P (MAP) 101/66 (78) 113/72 (86) Pulse Ox 98 98 O2 Delivery Nasal Cannula Nasal Cannula O2 Flow Rate 2.00 2.00 11/27/18 11/27/18 11/27/18 11/27/18 08:00 08:00 09:00 09:16 Pulse 79 80 Resp 12 20 B/P (MAP) 106/74 (85) 110/73 (85) Pulse Ox 98 97 96 O2 Delivery Nasal Cannula Nasal Cannula Nasal Cannula Nasal Cannula O2 Flow Rate 2.00 2.00 2.00 2.00 11/27/18 11/27/18 11/27/18 11/27/18 10:00 11:00 11:37 11:51 Temp 97.8 Pulse 80 80 Resp 13 17 B/P (MAP) 106/69 (81) 108/80 (89) Pulse Ox 95 96 98 O2 Delivery Nasal Cannula Nasal Cannula Nasal Cannula O2 Flow Rate 2.00 2.00 2.00 11/27/18 11/27/18 11/27/18 11/27/18 12:00 13:00 13:00 14:00 Pulse 80 80 78 80 Resp 14 12 16 B/P (MAP) 109/67 (81) 110/94 (99) 113/72 (86) Pulse Ox 96 98 96 O2 Delivery Nasal Cannula Nasal Cannula Nasal Cannula O2 Flow Rate 2.00 2.00 2.00 11/27/18 15:00 Pulse 80 Resp 16 B/P (MAP) 121/76 (91) Pulse Ox 96 O2 Delivery Nasal Cannula O2 Flow Rate 2.00 Capillary Refill : Less Than 3 SecondsLess Than 3 Seconds Constitutional: appears stated age; No apparent distress; well-developed, well- nourished HEENT: PERRL; No normal ENT inspection, No TMs normal, No pharynx normal, No scleral icterus (R), No scleral icterus (L), No pale conjunctivae (R), No pale conjunctivae (L), No photophobia, No TM abnormal (R), No TM abnormal (L), No pharyngeal erythema, No tonsillar exudate, No other, No discharge, No EOMI; hearing is well preserved; No hard of hearing; oral hygience is good; No ulceration, No xanthelasmas are seen Neck: No non-tender, No full range of motion, No supple, No normal inspection, No carotid bruit, No limited range of motion, No lymphadenopathy (R), No lymphadenopathy (L), No tender lateral, No tender midline, No thyromegaly, No other; carotid pulses are 2 + bilaterally; No with good upstrokes Respiratory: chest is bilaterally symmetric, lungs clear to auscultation Cardiovascular: irregularly irregular, tachycardia, S1 and S2 Gastrointestinal: No tender, No soft, No round, No distended, No pulsatile mass, No organomegaly, No guarding, No rebound, No tenderness, No hernia, No mass, No audible bowel sounds, No abnormal bowel sounds, No abdominal bruits, No spleenomegaly, No other Rectal: deferred Extremities: No normal range of motion, No non-tender, No normal inspection, No pedal edema, No calf tenderness, No normal capillary refill, No pelvis stable, No calf tenderness, No inflammation, No pedal edema, No slow capillary refill, No swelling, No other, No abrasion, No clubbing, No cyanosis, No ecchymosis, No laceration, No no lower extremity edema bilateral, No significant edema, No tenderness, No wound Neurologic/Psychiatric: no motor/sensory deficits, alert, normal mood/affect, oriented x 3, power is 5/5 both on sides Skin: No rash, No ulcerations Data Review Labs Laboratory Tests 11/26/18 21:53: Prothrombin Time 27.9H, INR Comment 2.5H, Activated Partial Thromboplast Time 34, Sodium Level 134L, Potassium Level 3.7, Chloride Level 101, Carbon Dioxide Level 19L, Anion Gap 14, Blood Urea Nitrogen 5L, Creatinine 0.79, Estimat Glomerular Filtration Rate > 60, BUN/Creatinine Ratio 6, Glucose Level 85, Calcium Level 8.2L, Corrected Calcium 8.4L, Magnesium Level 2.1, Total Bilirubin 0.2, Aspartate Amino Transf (AST/SGOT) 25, Alanine Aminotransferase (ALT/SGPT) 22, Alkaline Phosphatase 81, Total Protein 6.3L, Albumin 3.7, Serum Alcohol 230H 11/26/18 22:10: Urine Color YELLOW, Urine Clarity CLEAR, Urine pH 5, Urine Specific [place] 1.020, Urine Protein NEGATIVE, Urine Glucose (UA) NEGATIVE, Urine Ketones NEGATIVE, Urine Nitrite NEGATIVE, Urine Bilirubin NEGATIVE, Urine Urobilinogen NORMAL, Urine Leukocyte Esterase 1+H, Urine RBC (Auto) 4+H, Urine RBC RARE, Urine WBC 0-2, Urine Squamous Epithelial Cells RARE, Urine Crystals NONE, Urine Bacteria TRACE, Urine Casts PRESENT, Urine Hyaline Casts 0-2H, Urine Mucus SMALLH, Urine Culture Indicated NO, Urine Opiates Screen POSITIVEH, Urine Oxycodone Screen NEGATIVE, Urine Methadone Screen NEGATIVE, Urine Propoxyphene Screen NEGATIVE, Urine Barbiturates Screen NEGATIVE, Ur Tricyclic Antidepressants Screen NEGATIVE, Urine Phencyclidine Screen NEGATIVE, Urine Amphetamines Screen NEGATIVE, Urine Methamphetamines Screen NEGATIVE, Urine Benzodiazepines Screen NEGATIVE, Urine Cocaine Screen NEGATIVE, Urine Cannabinoids Screen NEGATIVE 11/26/18 22:56: White Blood Count 10.4, Red Blood Count 4.36, Hemoglobin 13.4, Hematocrit 40, Mean Corpuscular Volume 92, Mean Corpuscular Hemoglobin 31, Mean Corpuscular Hemoglobin Concent 33, Red Cell Distribution Width 13.4, Platelet Count 349, Mean Platelet Volume 8.6, Neutrophils (%) (Auto) 71, Lymphocytes (%) (Auto) 17, Monocytes (%) (Auto) 11, Eosinophils (%) (Auto) 1, Basophils (%) (Auto) 0, Neutrophils # (Auto) 7.4, Lymphocytes # (Auto) 1.8, Monocytes # (Auto) 1.1H, Eosinophils # (Auto) 0.1, Basophils # (Auto) 0.0 ECG Impression ECG Initial ECG Impression: Atrial Fibrillation w/RVR A/P-Cardiology Assessment/Admission Diagnosis Hip fracture, Atrial fibrillation with rapid ventricular rate, Preoperative cardiovascular risk assessment. Plan Hip fracture, Atrial fibrillation with rapid ventricular rate, DC Cardizem infusion and start Cardizem CD 120 mg. Check echocardiogram. Preoperative cardiovascular risk assessment patient will be considered at intermediate risk for perioperative major adverse cardiac events undergoing an intermediate is non-cardiac surgery. There is no cardiac contraindication to the above-mentioned procedure. Warfarin/oral anticoagulation can be held and procedure done. Thank you for your consultation. Please call me if you have any questions. Tiffanie Nielson MD, FACP, FACC, FSCAI, FHRS, CCDS Interventional Cardiology Cardiac Electrophysiology Vascular Medicine and Endovascular Interventions Clinical Quality Measures DVT/VTE Risk/Contraindication: Risk Factor Score Per Nursin RFS Level Per Nursing on Admit: 3=High Breonna NIELSON MD Nov 27, 2018 3:23 pm
--- NOTE | 2018-11-27 16:55 | Progress Note ---
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 Radiographs demonstrate minimally displaced intertrochanteric fracture Left proximal femur. Injury will require operative fixation. Would plan for surgery tomorrow afternoon provided the INR is reversed to <1.4 Remain NWB LLE. NPO after MN tonight. Full consult to follow RAFI YIP DO Nov 27, 2018 16:55
--- NOTE | 2018-11-27 17:23 | History & Physical ---
HPI History of Present Illness: 62 yo M that presented after a fall and has left hip fracture. States that he was walking and stepped down wrong and fell. After the fall he had pain in his left hip and was not able to stand. Patient also is a daily drinker. States thats he drinks about a 12 pack of beer and some whiskey daily. EtOH level was above 200 upon admission. Patient has atrial fibrillation and is on warfarin daily. Source: patient, spouse Exam Limitations: no limitations Date seen by provider: Nov 27, 2018 Time Seen by Provider: 07:30 Attending Physician Dorothy Cotto MD PCP Self,Dario JARAMILLO Consult Date of Admission Nov 27, 2018 at 00:01 Home Medications Home Medications Reviewed patient Home Medication Reconciliation performed by pharmacy medication reconciliations automotive glass technician and/or nursing. Patients Allergies have been reviewed. Allergies Coded Allergies: cortisone (Unverified Allergy, Mild, 09/18/08) Isosorbide Mononitrate (Unverified Allergy, Unknown, 02/26/11) RGU-[id number]-[id number] Hx Patient Social History Living Status: Lives at home with Alcohol Use: Regular Use Recreational Drug Use: No Smoking Status: Current Everyday Smoker Recent Foreign Travel: No Contact w/other who traveled: No Recent Hopitalizations: No (BROKEN ANKLE LEFT APPRX 1995, RIGHT SHOULDER SURG APPRX 1982) Recent Infectious Disease Expo: No Past Medical History Atrial fibrillation Tobacco use EtOHism Review of Systems ([facility]) Constitutional: no symptoms reported; No chills, No fever EENTM: no symptoms reported; No nose congestion, No nose pain, No throat pain Respiratory: no symptoms reported; No cough, No dyspnea on exertion, No short of breath Cardiovascular: No chest pain, No edema; palpitations Gastrointestinal: no symptoms reported; No abdominal pain, No constipation, No diarrhea, No nausea, No vomiting Genitourinary: no symptoms reported; No dysuria, No frequency, No hematuria Musculoskeletal: joint pain Skin: no symptoms reported; No lesions, No rash Psychiatric/Neurological: No Symptoms Reported Reviewed Test Results Reviewed Test Results Lab Laboratory Tests Test 11/26/18 21:53 11/26/18 22:10 11/26/18 22:56 Range/Units Prothrombin Time 27.9 H 12.2-14.7 SEC INR Comment 2.5 H 0.8-1.4 Activated Partial Thromboplast Time 34 24-35 SEC Sodium Level 134 L 135-145 MMOL/L Potassium Level 3.7 3.6-5.0 MMOL/L Chloride Level 101 98-107 MMOL/L Carbon Dioxide Level 19 L 21-32 MMOL/L Anion Gap 14 5-14 MMOL/L Blood Urea Nitrogen 5 L 7-18 MG/DL Creatinine 0.79 0.60-1.30 MG/DL Estimat Glomerular Filtration Rate > 60 BUN/Creatinine Ratio 6 Glucose Level 85 70-105 MG/DL Calcium Level 8.2 L 8.5-10.1 MG/DL Corrected Calcium 8.4 L 8.5-10.1 MG/DL Magnesium Level 2.1 1.8-2.4 MG/DL Total Bilirubin 0.2 0.1-1.0 MG/DL Aspartate Amino Transf (AST/SGOT) 25 5-34 U/L Alanine Aminotransferase (ALT/SGPT) 22 0-55 U/L Alkaline Phosphatase 81 40-136 U/L Total Protein 6.3 L 6.4-8.2 GM/DL Albumin 3.7 3.2-4.5 GM/DL Serum Alcohol 230 H <10 MG/DL Urine Color YELLOW Urine Clarity CLEAR Urine pH 5 5-9 Urine Specific [place] 1.020 1.016-1.022 Urine Protein NEGATIVE NEGATIVE Urine Glucose (UA) NEGATIVE NEGATIVE Urine Ketones NEGATIVE NEGATIVE Urine Nitrite NEGATIVE NEGATIVE Urine Bilirubin NEGATIVE NEGATIVE Urine Urobilinogen NORMAL NORMAL MG/DL Urine Leukocyte Esterase 1+ H NEGATIVE Urine RBC (Auto) 4+ H NEGATIVE Urine RBC RARE /HPF Urine WBC 0-2 /HPF Urine Squamous Epithelial Cells RARE /HPF Urine Crystals NONE /LPF Urine Bacteria TRACE /HPF Urine Casts PRESENT /LPF Urine Hyaline Casts 0-2 H /LPF Urine Mucus SMALL H /LPF Urine Culture Indicated NO Urine Opiates Screen POSITIVE H NEGATIVE Urine Oxycodone Screen NEGATIVE NEGATIVE Urine Methadone Screen NEGATIVE NEGATIVE Urine Propoxyphene Screen NEGATIVE NEGATIVE Urine Barbiturates Screen NEGATIVE NEGATIVE Ur Tricyclic Antidepressants Screen NEGATIVE NEGATIVE Urine Phencyclidine Screen NEGATIVE NEGATIVE Urine Amphetamines Screen NEGATIVE NEGATIVE Urine Methamphetamines Screen NEGATIVE NEGATIVE Urine Benzodiazepines Screen NEGATIVE NEGATIVE Urine Cocaine Screen NEGATIVE NEGATIVE Urine Cannabinoids Screen NEGATIVE NEGATIVE White Blood Count 10.4 4.3-11.0 10^3/uL Red Blood Count 4.36 4.35-5.85 10^6/uL Hemoglobin 13.4 13.3-17.7 G/DL Hematocrit 40 40-54 % Mean Corpuscular Volume 92 80-99 FL Mean Corpuscular Hemoglobin 31 25-34 PG Mean Corpuscular Hemoglobin Concent 33 32-36 G/DL Red Cell Distribution Width 13.4 10.0-14.5 % Platelet Count 349 130-400 10^3/uL Mean Platelet Volume 8.6 7.4-10.4 FL Neutrophils (%) (Auto) 71 42-75 % Lymphocytes (%) (Auto) 17 12-44 % Monocytes (%) (Auto) 11 0-12 % Eosinophils (%) (Auto) 1 0-10 % Basophils (%) (Auto) 0 0-10 % Neutrophils # (Auto) 7.4 1.8-7.8 X 10^3 Lymphocytes # (Auto) 1.8 1.0-4.0 X 10^3 Monocytes # (Auto) 1.1 H 0.0-1.0 X 10^3 Eosinophils # (Auto) 0.1 0.0-0.3 10^3/uL Basophils # (Auto) 0.0 0.0-0.1 10^3/uL Physical Exam-([facility]) Physical Exam Vital Signs VS - Last 72 Hours, by Label 11/26/18 11/26/18 11/27/18 11/27/18 21:58 23:30 00:57 01:55 Temp 97.6 Pulse 120 121 106 93 Resp 18 18 18 B/P (MAP) 127/100 (109) 96/76 (83) 108/74 108/76 (87) Pulse Ox 95 97 O2 Delivery Room Air 11/27/18 11/27/18 11/27/18 11/27/18 02:00 02:35 03:00 03:40 Temp 98.0 Pulse 134 82 Resp 12 14 B/P (MAP) 119/106 (110) 105/69 (81) Pulse Ox 92 92 99 100 O2 Delivery Nasal Cannula Nasal Cannula Nasal Cannula Nasal Cannula O2 Flow Rate 2.00 2.00 2.00 2.00 11/27/18 11/27/18 11/27/18 11/27/18 03:40 04:00 05:00 06:03 Temp 97.7 Pulse 85 80 80 Resp 19 21 12 B/P (MAP) 105/73 (84) 106/71 (83) 101/66 (78) Pulse Ox 100 100 98 O2 Delivery Nasal Cannula Nasal Cannula Nasal Cannula Nasal Cannula O2 Flow Rate 2.00 2.00 2.00 2.00 11/27/18 11/27/18 11/27/18 11/27/18 07:00 07:00 07:46 08:00 Temp 97.7 Pulse 80 80 Resp 14 B/P (MAP) 113/72 (86) Pulse Ox 98 98 O2 Delivery Nasal Cannula Nasal Cannula O2 Flow Rate 2.00 2.00 11/27/18 11/27/18 11/27/18 11/27/18 08:00 09:00 09:16 10:00 Pulse 79 80 80 Resp 12 20 13 B/P (MAP) 106/74 (85) 110/73 (85) 106/69 (81) Pulse Ox 97 96 95 O2 Delivery Nasal Cannula Nasal Cannula Nasal Cannula Nasal Cannula O2 Flow Rate 2.00 2.00 2.00 2.00 11/27/18 11/27/18 11/27/18 11/27/18 11:00 11:37 11:51 12:00 Temp 97.8 Pulse 80 80 Resp 17 14 B/P (MAP) 108/80 (89) 109/67 (81) Pulse Ox 96 98 96 O2 Delivery Nasal Cannula Nasal Cannula Nasal Cannula O2 Flow Rate 2.00 2.00 2.00 11/27/18 11/27/18 11/27/18 11/27/18 13:00 13:00 14:00 15:00 Pulse 80 78 80 80 Resp 12 16 16 B/P (MAP) 110/94 (99) 113/72 (86) 121/76 (91) Pulse Ox 98 96 96 O2 Delivery Nasal Cannula Nasal Cannula Nasal Cannula O2 Flow Rate 2.00 2.00 2.00 11/27/18 11/27/18 11/27/18 15:57 16:00 16:00 Temp 97.3 Pulse 79 Resp 15 B/P (MAP) 120/77 (91) Pulse Ox 96 O2 Delivery Nasal Cannula Nasal Cannula O2 Flow Rate 2.00 2.00 Capillary Refill : Less Than 3 SecondsLess Than 3 Seconds General Appearance: WD/WN, no apparent distress HEENT: PERRL/EOMI Neck: non-tender, full range of motion, supple Respiratory: chest non-tender, lungs clear, normal breath sounds, no respiratory distress, no accessory muscle use Cardiovascular: normal peripheral pulses, regular rate, rhythm, no murmur Gastrointestinal: normal bowel sounds, non tender, soft, no organomegaly Back: no CVA tenderness, no vertebral tenderness Extremities: normal range of motion, no pedal edema, no calf tenderness, normal capillary refill Neurologic/Psychiatric: clay molder II-XII nml as tested, no motor/sensory deficits, alert, normal mood/affect, oriented x 3 Skin: normal color, warm/dry Lymphatic: no adenopathy Assessment/Plan Assessment/Plan Admission Status: Inpatient Order (span 2 midnights) Reason for Inpatient Admission: Needs surgical repair of left hip (1) Atrial fibrillation with rapid ventricular response Status: Acute Assessment & Plan: - Cardiology consulted for RVR and surgical clearance (2) Closed left femoral fracture Status: Acute Assessment & Plan: - Ortho consulted for repair of left hip fracture Qualifiers: Qualified Codes: S72.002A - Fracture of unspecified part of neck of left femur, initial encounter for closed fracture (3) Fall Status: Acute Qualifiers: Qualified Codes: W19.XXXA - Unspecified fall, initial encounter (4) Alcohol dependence Status: Acute Assessment & Plan: - CIWS, ativan PRN, thiamine and FA Qualifiers: Qualified Codes: F10.20 - Alcohol dependence, uncomplicated Clinical Quality Measures DVT/VTE Risk/Contraindication: Risk Factor Score Per Nursin RFS Level Per Nursing on Admit: 3=High Copy Copies To 1: SELFDARIO MD, HOLLY R MD Nov 27, 2018 17:23
--- NOTE | 2018-11-27 17:54 | NUR ---
new orders received from dr waters to give cardizem cd 120mg po x1 now, then dc cardizem drip in 4 hrs.
[2018-11-27] MEDS ORDERED: DILTIAZEM 120 MG (CARDIZEM CD) CAP PO SCH ×2 (18:00)
[2018-11-27] MEDS ORDERED: DILTIAZEM 125 MG/25 ML IV (CARDIZEM) IV ONE ×2 (18:18→19:54)
--- NOTE | 2018-11-27 18:42 | NUR ---
pt c/o left hip pain/muscle spasm px unrelieved by fentanyl. dr borjas notified. new orders received for morphine--see emar for details.
[2018-11-27] MEDS ORDERED: morphine INJ 4 MG/ML 1 ML (VIAL/SYRINGE) IVP PRN (18:45)
--- NOTE | 2018-11-27 21:44 | NUR ---
CARDIZEM DRIP OFF AT THIS TIME
[2018-11-28] VITALS (13 sets, daily range): BP systolic 105–143; BP diastolic 59–98
[2018-11-28] MEDS: fentaNYL INJECTION 100 MCG/2 ML AMP IVP PRN ×10 (01:12→22:44)
[2018-11-28 03:18] LABS: BASOPHILS % (AUTO) 0 % (0-10); EOSINOPHILS % (AUTO) 0 % (0-10); HEMATOCRIT 39 % (40-54); LYMPHOCYTES # (AUTO) 1.2 X 10^3 (1.0-4.0); LYMPHOCYTES % (AUTO) 13 % (12-44); MEAN CORPUSCULAR HEMOGLOBIN 31 PG (25-34); MEAN CORPUSCULAR HGB CONC 33 G/DL (32-36); MEAN CORPUSCULAR VOLUME 94 FL (80-99); MEAN PLATELET VOLUME 9.1 FL (7.4-10.4); MONOCYTES # (AUTO) 1.5 X 10^3 (0.0-1.0); MONOCYTES % (AUTO) 17 % (0-12); NEUTROPHILS # (AUTO) 6.4 X 10^3 (1.8-7.8); NEUTROPHILS % (AUTO) 69 % (42-75); PLATELET COUNT 268 10^3/uL (130-400); RED CELL DISTRIBUTION WIDTH 13.3 % (10.0-14.5); WHITE BLOOD COUNT 9.2 10^3/uL (4.3-11.0)
[2018-11-28 03:29] LABS: INR 1.9 (0.8-1.4); PROTHROMBIN TIME PATIENT 22.1 SEC (12.2-14.7)
[2018-11-28 03:41] LABS: BUN/CREATININE RATIO 7; CALCIUM 8.5 MG/DL (8.5-10.1); CARBON DIOXIDE 24 MMOL/L (21-32); CHLORIDE 105 MMOL/L (98-107); CREATININE SERUM 0.76 MG/DL (0.60-1.30); GFR ESTIMATED > 60; GLUCOSE 123 MG/DL (70-105); PHOSPHORUS 2.8 MG/DL (2.3-4.7); POTASSIUM 3.9 MMOL/L (3.6-5.0); SODIUM 138 MMOL/L (135-145)
[2018-11-28] MEDS: POTASSIUM CL 10MEQ/50ML IVPB 50 ML IV SCH (04:44)
[2018-11-28] MEDS: KCL 20 MEQ TAB (K-DUR) PO SCH (04:44)
[2018-11-28] MEDS: MAGNESIUM 1 GM/100 ML IVPB 100 ML IV SCH (04:44)
[2018-11-28] MEDS: D5 1/2 NS W/KCL 20 MEQ/L 1,000 ML IV SCH ×7 (05:40→23:33)
--- NOTE | 2018-11-28 08:17 | Diagnostic Imaging Report ---
INDICATION: Dyspnea. Comparison with 11/26/2018. FINDINGS: The heart size has increased slightly since previous exam. The lungs are well-aerated. There are no infiltrates. No pneumothorax or pleural effusions. Pacemaker on the left appears unchanged. IMPRESSION: Mild cardiomegaly with no evidence of infiltrates or pleural effusions. Dictated by: Dictated on workstation # [id number]
--- NOTE | 2018-11-28 08:54 | NUR ---
Report called to JAHAIRA Perez who will assume pt care at this time. Pt transferred via bed to room 408 at this time. Pt remains on ICU bed per pt request and pain from left hip fx. Instructed Ana to change out beds when pt goes to surgery at this time. Personal belongings with pt at time of transfer. also at bedside during transfer.
[2018-11-28] MEDS: THIAMINE INJECTION 100 MG, FOLIC ACID INJECTION 1 MG, MAGNESIUM SULFATE 2 GM, VITAMIN M... IV SCH ×5 (10:39)
--- NOTE | 2018-11-28 10:50 | Progress Note - Hospitalist ---
Subjective HPI/CC On Admission Date Seen by Provider: Nov 28, 2018 Time Seen by Provider: 09:30 Subjective/Events-last exam Awaiting Dr. Cavanaugh regarding his plan for left hip fx repair Appreciate cardiology following along He sees Dr. Rock on a regular basis Detox on board with banana bag because he is a regular alcohol user He just got done mowing the lawn with a push mower and then he felt his hip give out so he didn't even fall that caused the hip fracture making it suspicious for some sort of neoplastic process. Will order nebulizer treatments. Pt transferred down from ICU 8 to room 408. Updated Pt and family. Pain is controlled. Vit K given to get INR 1.4 to perform repair tomorrow per Dr Cavanaugh Review of Systems General: Fatigue Musculoskeletal: leg pain Objective Exam Vital Signs Vital Signs Date Time Temp Pulse Resp B/P (MAP) Pulse Ox O2 Delivery O2 Flow Rate FiO2 11/28/18 15:46 98.2 85 22 123/71 (88) 94 Nasal Cannula 2.00 Capillary Refill : Less Than 3 SecondsLess Than 3 Seconds General Appearance: No Apparent Distress, WD/WN, Chronically ill Respiratory: Chest Non Tender, Lungs Clear, No Accessory Muscle Use, No R espiratory Distress, Crackles, Decreased Breath Sounds, Wheezing Cardiovascular: Regular Rate, Rhythm, No Edema, No Gallop, No JVD, No Murmur, Normal Peripheral Pulses Extremity: Normal Capillary Refill, Normal Inspection, Normal Range of Motion (except left leg), Non Tender, No Calf Tenderness, No Pedal Edema Neurologic/Psychiatric: Alert, Oriented x3, No Motor/Sensory Deficits, Normal Mood/Affect Results/Procedures Lab Laboratory Tests 11/28/18 02:56 Patient resulted labs reviewed. Assessment/Plan Assessment and Plan Assess & Plan/Chief Complaint Assessment: (1) Atrial fibrillation with rapid ventricular response now controlled and transferred to 4th floor (2) Closed left femoral fracture- repair scheduled for tomorrow per Dr Cavanaugh (3) Fall (4) Alcohol dependence 5. Smoker 6. Coarse BS on lung exam Plan: Repair scheduled for tomorrow ETOH withdrawal protocol Vit K given to reverse INR in order to minimize hemorrhage tomorrow during surgery Nebs for coarse BS on exam today Smoking cessation Diagnosis/Problems Diagnosis/Problems (1) Closed left femoral fracture Status: Acute Qualifiers: Encounter type: initial encounter Femur location: neck, unspecified portion Qualified Codes: S72.002A - Fracture of unspecified part of neck of left femur, initial encounter for closed fracture (2) Smoker Status: Chronic (3) Rales Status: Acute (4) Warfarin anticoagulation Status: Chronic (5) Fall Status: Acute Qualifiers: Encounter type: initial encounter Qualified Codes: W19.XXXA - Unspecified fall, initial encounter (6) Alcohol dependence Status: Chronic Qualifiers: Substance use status: uncomplicated Qualified Codes: F10.20 - Alcohol dependence, uncomplicated (7) Atrial fibrillation with rapid ventricular response Status: Acute Clinical Quality Measures DVT/VTE Risk/Contraindication: Risk Factor Score Per Nursin RFS Level Per Nursing on Admit: 3=High EDNA SUTTON DO Nov 28, 2018 10:50
[2018-11-28] MEDS ORDERED: WARF-48 PO (11:59)
[2018-11-28] MEDS ORDERED: HYDR-3812 PO (11:59)
[2018-11-28] MEDS ORDERED: DILT240C PO (11:59)
[2018-11-28] MEDS ORDERED: ATOR40TA70 PO (11:59)
[2018-11-28] MEDS ORDERED: WARF1TAB82 PO (11:59)
--- NOTE | 2018-11-28 12:00 | NUR ---
WENT OVER THE EXT MED HX WITH THE PATIENT AND HE VERIFIED HOW HE IS TAKING THEM. HE DOES NOT TAKE ANYTHING OTC.
[2018-11-28] MEDS ORDERED: VITAMIN K 1 MG/ML ORAL SOLN 1 ML SYRINGE PO NR (16:15)
--- NOTE | 2018-11-28 17:49 | Cardiology Progress Note ---
Cardiology SOAP Progress Note Subjective: No cardiac symptoms. Objective: I&O/Vital Signs 11/28/18 11/28/18 11/28/18 11/28/18 06:00 07:00 07:00 08:00 Pulse 85 80 80 81 Resp 17 14 16 B/P (MAP) 135/98 (110) 127/59 (81) 114/62 (79) Pulse Ox 94 95 94 O2 Delivery Nasal Cannula Nasal Cannula Nasal Cannula O2 Flow Rate 2.00 2.00 2.00 11/28/18 11/28/18 11/28/18 11/28/18 08:30 09:00 09:19 12:00 Temp 98.3 98.6 Pulse 86 81 Resp 18 20 B/P (MAP) 111/64 (80) 143/76 (98) Pulse Ox 97 95 O2 Delivery Nasal Cannula Nasal Cannula Nasal Cannula Nasal Cannula O2 Flow Rate 2.00 2.00 2.00 2.00 11/28/18 15:46 Temp 98.2 Pulse 85 Resp 22 B/P (MAP) 123/71 (88) Pulse Ox 94 O2 Delivery Nasal Cannula O2 Flow Rate 2.00 11/28/18 00:00 Intake Total 1040.2 ml Output Total 1450 ml Balance -409.8 ml Weight (Pounds): 177 Weight (Ounces): 9.0 Weight (Calculated Kilograms): 80.472091 Constitutional: appears stated age; No apparent distress; well-developed, well- nourished Respiratory: chest is bilaterally symmetric, lungs clear to auscultation Cardiovascular: irregularly irregular, tachycardia, S1 and S2 Gastrointestional: No tender, No soft, No round, No distended, No pulsatile mass, No organomegaly, No guarding, No rebound, No tenderness, No hernia, No mass, No audible bowel sounds, No abnormal bowel sounds, No abdominal bruits, No spleenomegaly, No other Extremities: No normal range of motion, No non-tender, No normal inspection, No pedal edema, No calf tenderness, No normal capillary refill, No pelvis stable, No calf tenderness, No inflammation, No pedal edema, No slow capillary refill, No swelling, No other, No abrasion, No clubbing, No cyanosis, No ecchymosis, No laceration, No no lower extremity edema bilateral, No significant edema, No tenderness, No wound Neurologic/Psychiatric: no motor/sensory deficits, alert, normal mood/affect, oriented x 3, power is 5/5 both on sides Skin: No rash, No ulcerations Results/Procedures: Labs Laboratory Tests 11/28/18 02:56: White Blood Count 9.2, Red Blood Count 4.18L, Hemoglobin 13.0L, Hematocrit 39L, Mean Corpuscular Volume 94, Mean Corpuscular Hemoglobin 31, Mean Corpuscular Hemoglobin Concent 33, Red Cell Distribution Width 13.3, Platelet Count 268, Cristina n Platelet Volume 9.1, Neutrophils (%) (Auto) 69, Lymphocytes (%) (Auto) 13, Monocytes (%) (Auto) 17H, Eosinophils (%) (Auto) 0, Basophils (%) (Auto) 0, Neutrophils # (Auto) 6.4, Lymphocytes # (Auto) 1.2, Monocytes # (Auto) 1.5H, Eosinophils # (Auto) 0.0, Basophils # (Auto) 0.0, Prothrombin Time 22.1H, INR Co mment 1.9H, Sodium Level 138, Potassium Level 3.9, Chloride Level 105, Carbon Dioxide Level 24, Anion Gap 9, Blood Urea Nitrogen 5L, Creatinine 0.76, Estimat Glomerular Filtration Rate > 60, BUN/Creatinine Ratio 7, Glucose Level 123H, Calcium Level 8.5, Phosphorus Level 2.8, Magnesium Level 2.0 Microbiology 11/27/18 MRSA Screen - Final, Complete MRSA not isolated A/P: Assessment/Dx: Hip fracture, Atrial fibrillation with rapid ventricular rate, Preoperative cardiovascular risk assessment. Plan: Hip fracture, Atrial fibrillation with rapid ventricular rate, DC Cardizem infusion and start Cardizem CD 120 mg. Check echocardiogram. Preoperative cardiovascular risk assessment patient will be considered at intermediate risk for perioperative major adverse cardiac events undergoing an intermediate is non-cardiac surgery. There is no cardiac contraindication to the above-mentioned procedure. Warfarin/oral anticoagulation can be held and procedure done. Thank you for your consultation. Please call me if you have any questions. Tiffanie Nielson MD, FACP, FACC, FSCAI, FHRS, CCDS Interventional Cardiology Cardiac Electrophysiology Vascular Medicine and Endovascular Interventions Breonna NIELSON MD Nov 28, 2018 5:49 pm
[2018-11-28] MEDS ORDERED: CALCIUM CARBONATE 500 MG (TUMS) TAB.CHEW PO PRN (19:15)
[2018-11-28] MEDS ORDERED: RT-ALBUTEROL/IPRATROPIUM 3 ML (DUONEB) VIAL INH NR (19:15)
[2018-11-28] MEDS ORDERED: ACETAMINOPHEN 500 MG TAB (TYLENOL) PO PRN (19:15)
[2018-11-28] MEDS ORDERED: diphenhydrAMINE 25 MG TAB (BENADRYL) PO PRN (19:15)
[2018-11-28] MEDS ORDERED: MELATONIN 3 MG TABLET PO PRN (19:15)
[2018-11-28] MEDS: SENNA W/DOCUSATE (SENOKOT S) TABLET PO SCH (20:28)
[2018-11-28] MEDS: DOCUSATE SODIUM 100 MG (COLACE) CAP PO SCH (20:28)
[2018-11-28] MEDS: RT-ALBUTEROL/IPRATROPIUM 3 ML (DUONEB) VIAL INH SCH (22:41)
[2018-11-29] VITALS (15 sets, daily range): BP systolic 89–132; BP diastolic 57–95
[2018-11-29] MEDS: RT-ALBUTEROL/IPRATROPIUM 3 ML (DUONEB) VIAL INH SCH ×6 (02:39→22:17)
[2018-11-29] MEDS: fentaNYL INJECTION 100 MCG/2 ML AMP IVP PRN ×3 (02:51→12:13)
[2018-11-29 05:28] LABS: BASOPHILS % (AUTO) 0 % (0-10); EOSINOPHILS # (AUTO) 0.1 10^3/uL (0.0-0.3); EOSINOPHILS % (AUTO) 1 % (0-10); HEMATOCRIT 41 % (40-54); HEMOGLOBIN 13.3 G/DL (13.3-17.7); LYMPHOCYTES # (AUTO) 1.2 X 10^3 (1.0-4.0); LYMPHOCYTES % (AUTO) 15 % (12-44); MEAN CORPUSCULAR HEMOGLOBIN 31 PG (25-34); MEAN CORPUSCULAR HGB CONC 33 G/DL (32-36); MEAN CORPUSCULAR VOLUME 95 FL (80-99); MONOCYTES # (AUTO) 1.3 X 10^3 (0.0-1.0); MONOCYTES % (AUTO) 16 % (0-12); NEUTROPHILS # (AUTO) 5.3 X 10^3 (1.8-7.8); NEUTROPHILS % (AUTO) 67 % (42-75); PLATELET COUNT 229 10^3/uL (130-400); RED CELL DISTRIBUTION WIDTH 13.6 % (10.0-14.5); WHITE BLOOD COUNT 7.9 10^3/uL (4.3-11.0)
[2018-11-29 05:46] LABS: ALANINE AMINOTRANSFERASE 14 U/L (0-55); ALBUMIN 3.3 GM/DL (3.2-4.5); ALKALINE PHOSPHATASE 88 U/L (40-136); BILIRUBIN,TOTAL 0.4 MG/DL (0.1-1.0); BUN/CREATININE RATIO 7; CALCIUM 8.8 MG/DL (8.5-10.1); CARBON DIOXIDE 23 MMOL/L (21-32); CHLORIDE 106 MMOL/L (98-107); CREATININE SERUM 0.76 MG/DL (0.60-1.30); GFR ESTIMATED > 60; GLUCOSE 138 MG/DL (70-105); POTASSIUM 4.2 MMOL/L (3.6-5.0); SODIUM 138 MMOL/L (135-145); TOTAL PROTEIN 6.3 GM/DL (6.4-8.2)
--- NOTE | 2018-11-29 09:31 | Progress Note - Hospitalist ---
Subjective HPI/CC On Admission Date Seen by Provider: Nov 29, 2018 Time Seen by Provider: 09:00 Subjective/Events-last exam Going to the OR today to repair the left hip fracture. No evidence of any withdrawal symptoms from alcohol but remains on protocol. INR is 1.0 after Vitamin K given so he will proceed on to surgery. CBC and CMP are all normal. Lungs are improved with nebulizer treatments and use of IS. Pt appears to be mildly confused but very subtle. Will be an excellent rehab candidate. Checked meds and labs. Conferred with RN. Review of Systems General: Fatigue Pulmonary: Cough Musculoskeletal: leg pain Objective Exam Vital Signs Vital Signs Date Time Temp Pulse Resp B/P (MAP) Pulse Ox O2 Delivery O2 Flow Rate FiO2 11/29/18 18:23 92 Nasal Cannula 3.00 11/29/18 18:04 98.4 115 20 105/72 (83) Capillary Refill : Less Than 3 SecondsLess Than 3 Seconds General Appearance: No Apparent Distress, WD/WN, Chronically ill Respiratory: Chest Non Tender, Lungs Clear, No Accessory Muscle Use, No Respira tory Distress, Crackles, Decreased Breath Sounds, Wheezing Cardiovascular: Regular Rate, Rhythm, No Edema, No Gallop, No JVD, No Murmur, Normal Peripheral Pulses Extremity: Normal Capillary Refill, Normal Inspection, Normal Range of Motion (except left leg), Non Tender, No Calf Tenderness, No Pedal Edema Neurologic/Psychiatric: Alert, Oriented x3, No Motor/Sensory Deficits, Normal Mood/Affect Results/Procedures Lab Laboratory Tests 11/29/18 05:09 Patient resulted labs reviewed. Assessment/Plan Assessment and Plan Assess & Plan/Chief Complaint Assessment: (1) Atrial fibrillation with rapid ventricular response now controlled and transferred to 4th floor (2) Closed left femoral fracture- repair scheduled for tomorrow per Dr Cavanaugh (3) Fall (4) Alcohol dependence 5. Smoker 6. Coarse BS on lung exam Plan: Repair scheduled for today ETOH withdrawal protocol Vit K given to reverse INR in order to minimize hemorrhage during surgery Nebs for coarse BS on exam yesterday and improved today Smoking cessation IRF at [facility] from acute care Diagnosis/Problems Diagnosis/Problems (1) Closed left femoral fracture Status: Acute Qualifiers: Encounter type: initial encounter Femur location: neck, unspecified portion Qualified Codes: S72.002A - Fracture of unspecified part of neck of left femur, initial encounter for closed fracture (2) Smoker Status: Chronic (3) Rales Status: Acute (4) Warfarin anticoagulation Status: Chronic (5) Fall Status: Acute Qualifiers: Encounter type: initial encounter Qualified Codes: W19.XXXA - Unspecified fall, initial encounter (6) Alcohol dependence Status: Chronic Qualifiers: Substance use status: uncomplicated Qualified Codes: F10.20 - Alcohol dependence, uncomplicated (7) Atrial fibrillation with rapid ventricular response Status: Acute Clinical Quality Measures DVT/VTE Risk/Contraindication: Risk Factor Score Per Nursin RFS Level Per Nursing on Admit: 3=High EDNA SUTTON DO Nov 29, 2018 09:31
[2018-11-29] MEDS: SENNA W/DOCUSATE (SENOKOT S) TABLET PO SCH ×2 (09:41→20:39)
[2018-11-29] MEDS: THIAMINE INJECTION 100 MG, FOLIC ACID INJECTION 1 MG, MAGNESIUM SULFATE 2 GM, VITAMIN M... IV SCH ×5 (09:41)
[2018-11-29] MEDS: DOCUSATE SODIUM 100 MG (COLACE) CAP PO SCH ×2 (09:41→20:39)
[2018-11-29] MEDS ORDERED: fentaNYL INJECTION 100 MCG/2 ML AMP ONE (13:53)
[2018-11-29] MEDS ORDERED: proPOfol 200 MG/20 ML (DIPRIVAN) VIAL IV ONE (13:53)
[2018-11-29] MEDS ORDERED: MIDAZOLAM 2 MG/2 ML (VERSED) VIAL ONE (13:53)
[2018-11-29] MEDS ORDERED: LIDOCAINE PF 2% 5 ML (XYLOCAINE) VIAL ONE (13:53)
[2018-11-29] MEDS ORDERED: ROCURONIUM 10 MG/ML 5 ML SYRINGE IV ONE (13:53)
--- NOTE | 2018-11-29 14:42 | Consultation ---
History of Present Illness History of Present Illness Patient Consulted On(timo/time) 11/29/18 14:37 Date Seen by Provider: Nov 29, 2018 Time Seen by Provider: 14:37 Reason for Visit: Left hip fracture History of Present Illness Mr. Wheeler is a 62 y/o male with h/o chronic alcoholism and a-fib that presented to the [facility] ED on Wednesday with CC of severe Left hip pain secondary to sustaining a mechanical GLF. Plain radiographs of the Left hip obtained in the ED demonstrated a minimally displaced intertrochanteric fracture of the Left proximal femur. He denies head trauma/LOC. He denies additional associated musculoskeletal injuries. He has no additional musculoskeletal complaints. Allergies and Home Medications Allergies Coded Allergies: cortisone (Unverified Allergy, Mild, 09/18/08) Isosorbide Mononitrate (Unverified Allergy, Unknown, 02/26/11) Home Medications Atorvastatin Calcium 40 Mg Tablet, 40 MG PO HS, (Reported) Diltiazem HCl 240 Mg Cap.er.24h, 240 MG PO DAILY, (Reported) Hydrocodone/Acetaminophen 1 Each Tablet, 1 TAB PO Q8H PRN for PAIN-MODERATE, (Reported) Warfarin Sodium 1 Mg Tablet, 1 MG PO MoWeFr, (Reported) TAKES AN EXTRA 1MG WEDNESDAY, WEDNESDAY, WEDNESDAY IN ADDITION TO 5MG TABLET Warfarin Sodium 5 Mg Tablet, 5 MG PO DAILY, (Reported) Patient Home Medication List Home Medication List Reviewed: Yes Past Hwxmbtw-Pvuaqn-Iwqcnh Hx Patient Social History Alcohol Use: Regular Use Number of Drinks Today: 6 Alcohol Beverage of Choice: Beer Recreational Drug Use: No Smoking Status: Current Everyday Smoker Recent Foreign Travel: No Contact w/Someone Who Travel: No Recent Infectious Disease Expo: No Recent Hopitalizations: No (BROKEN ANKLE LEFT APPRX 1995, RIGHT SHOULDER SURG APPRX 1982) Physical Abuse: No Sexual Abuse: No Mistreated: No Fear: No Past Medical History Surgeries: Yes (RIGHT SHOULDER AND LEFT ANKLE SURG, hernia repair 1999) Respiratory: Yes Cardiac: Yes Neurological: No Reproductive Disorders: No Gastrointestinal: No Musculoskeletal: No Endocrine: No Psychosocial: No Blood Disorders: No Review of Systems-General Constitutional: no symptoms reported EENTM: no symptoms reported Cardiovascular: palpitations Gastrointestinal: no symptoms reported Musculoskeletal: joint pain Skin: no symptoms reported Psychiatric/Neurological: No Symptoms Reported Physical Exam-General Problems Physical Exam Vital Signs Vital Signs - First Documented 11/26/18 11/26/18 11/27/18 21:58 23:30 02:00 Temp 97.6 Pulse 120 Resp 18 B/P (MAP) 127/100 (109) Pulse Ox 95 O2 Delivery Room Air O2 Flow Rate 2.00 Capillary Refill : Less Than 3 SecondsLess Than 3 Seconds Eyes: Bilateral Eye Normal Inspection, Bilateral Eye PERRL, Bilateral Eye EOMI HEENT: PERRL/EOMI, normal ENT inspection Neck: non-tender, full range of motion, supple Respiratory: no respiratory distress, no accessory muscle use Cardiovascular: irregularly irregular Peripheral Pulses: 2+ Dorsalis Pedis (R), 2+ Left Dors-Pedis (L), 2+ Radial Pulses (R), 2+ Radial Pulses (L) Gastrointestinal: non tender, soft, no organomegaly, no pulsatile mass Extremities: no calf tenderness, other (pain Left hip with PROM, motor/sen sation grossly intact, skin intact, all compartments soft/compressible, foot well perfused.) 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 Unstable injury; recommend operative stabilization. INR now 1.0 after reversal. Patient cleared by medicine and cardiology for surgery. Plan for surgery today. Discussed the treatment plan with the patient in detail. He agrees and has given informed consent to proceed as planned. Clinical Quality Measures DVT/VTE Risk/Contraindication: Risk Factor Score Per Nursin RFS Level Per Nursing on Admit: 3=High RAFI YIP DO Nov 29, 2018 14:42
--- NOTE | 2018-11-29 14:45 | NUR ---
Patient to surgery with staff on hospital for surgery on left hip fracture.
[2018-11-29] MEDS ORDERED: LACTATED RINGERS 1,000 ML IV PRN (14:48)
--- NOTE | 2018-11-29 14:58 | Progress Note-Post Operative ---
Post-Operative Progess Note Surgeon (s)/Photographic Lithographer (s) Surgeon RAFI YIP DO Photographic Lithographer: Mazin Alvarez PA-C Pre-Operative Diagnosis Intertrochanteric fracture Left proximal femur Post-Operative Diagnosis Same Procedure & Operative Findings Date of Procedure 11/29/18 Procedure Performed/Findings Closed reduction/placement of cephalomedullary nail Left femur Anesthesia Type GETA Estimated Blood Loss Estimated blood loss (mL): 100 Specimens/Packing Specimens Removed None Packing: None Drains: None Complications: None Disposition: tolerated the procedure well, transferred to PACU in stable condition. RAFI YIP DO Nov 29, 2018 14:58
[2018-11-29] MEDS ORDERED: ceFAZolin INJECTION 2,000 MG ONE (14:59)
[2018-11-29] MEDS ORDERED: morphine INJ 4 MG/ML 1 ML (VIAL/SYRINGE) IVP PRN (15:00)
[2018-11-29] MEDS ORDERED: ceFAZolin 2 GM/50 ML NS 50 ML IV ONE (15:00)
--- NOTE | 2018-11-29 15:43 | Cardiology Progress Note ---
Cardiology SOAP Progress Note Subjective: Surgery planned today. Objective: I&O/Vital Signs 11/29/18 11/29/18 11/29/18 11/29/18 04:27 07:21 08:00 12:05 Temp 97.9 97.0 97.6 Pulse 95 88 87 Resp 22 22 22 B/P (MAP) 132/73 (92) 130/75 (93) 125/75 (92) Pulse Ox 98 96 98 O2 Delivery Nasal Cannula Nasal Cannula Nasal Cannula Nasal Cannula O2 Flow Rate 2.00 2.00 2.00 2.00 11/29/18 00:00 Intake Total 2800 ml Output Total 2700 ml Balance 100 ml Weight (Pounds): 175 Weight (Ounces): 2.6 Weight (Calculated Kilograms): 79.164895 Constitutional: appears stated age; No apparent distress; well-developed, well- nourished Respiratory: chest is bilaterally symmetric, lungs clear to auscultation Cardiovascular: irregularly irregular, tachycardia, S1 and S2 Gastrointestional: No tender, No soft, No round, No distended, No pulsatile mass, No organomegaly, No guarding, No rebound, No tenderness, No hernia, No mass, No audible bowel sounds, No abnormal bowel sounds, No abdominal bruits, No spleenomegaly, No other Extremities: No normal range of motion, No non-tender, No normal inspection, No pedal edema, No calf tenderness, No normal capillary refill, No pelvis stable, No calf tenderness, No inflammation, No pedal edema, No slow capillary refill, No swelling, No other, No abrasion, No clubbing, No cyanosis, No ecchymosis, No laceration, No no lower extremity edema bilateral, No significant edema, No tenderness, No wound Neurologic/Psychiatric: no motor/sensory deficits, alert, normal mood/affect, oriented x 3, power is 5/5 both on sides Skin: No rash, No ulcerations Results/Procedures: Labs Laboratory Tests 11/29/18 05:09: White Blood Count 7.9, Red Blood Count 4.29L, Hemoglobin 13.3, Hematocrit 41, Mean Corpuscular Volume 95, Mean Corpuscular Hemoglobin 31, Mean Corpuscular Hemoglobin Concent 33, Red Cell Distribution Width 13.6, Platelet Count 229, Mean Platelet Volume 9.0, Neutrophils (%) (Auto) 67, Lymphocytes (%) (Auto) 15, Monocytes (%) (Auto) 16H, Eosinophils (%) (Auto) 1, Basophils (%) (Auto) 0, Neutrophils # (Auto) 5.3, Lymphocytes # (Auto) 1.2, Monocytes # (Auto) 1.3H, Eosinophils # (Auto) 0.1, Basophils # (Auto) 0.0, Prothrombin Time 14.0, INR Comment 1.0, Sodium Level 138, Potassium Level 4.2, Chloride Level 106, Carbon Dioxide Level 23, Anion Gap 9, Blood Urea Nitrogen 5L, Creatinine 0.76, Estimat Glomerular Filtration Rate > 60, BUN/Creatinine Ratio 7, Glucose Level 138H, Calcium Level 8.8, Corrected Calcium 9.4, Total Bilirubin 0.4, Aspartate Amino Transf (AST/SGOT) 14, Alanine Aminotransferase (ALT/SGPT) 14, Alkaline Phosphatase 88, Total Protein 6.3L, Albumin 3.3 Microbiology 11/27/18 MRSA Screen - Final, Complete MRSA not isolated A/P: Assessment/Dx: Hip fracture, Atrial fibrillation with rapid ventricular rate, Preoperative cardiovascular risk assessment. Plan: Hip fracture, likely surgery today. Atrial fibrillation with rapid ventricular rate, DC Cardizem infusion and start Cardizem CD 120 mg. Check echocardiogram. Preoperative cardiovascular risk assessment patient will be considered at intermediate risk for perioperative major adverse cardiac events undergoing an intermediate is non-cardiac surgery. There is no cardiac contraindication to the above-mentioned procedure. Warfarin/oral anticoagulation can be held and procedure done. Thank you for your consultation. Please call me if you have any questions. Tiffanie Nielson MD, FACP, FACC, FSCAI, FHRS, CCDS Interventional Cardiology Cardiac Electrophysiology Vascular Medicine and Endovascular Interventions Breonna NIELSON MD Nov 29, 2018 15:43
[2018-11-29] MEDS ORDERED: morphine INJ 10 MG/ML 1ML (SYR OR VIAL) ONE (15:45)
[2018-11-29] MEDS ORDERED: PHENYLEPHRINE 100 MCG/ML 10 ML (ANESTHESIA) SYR ONE (16:15)
[2018-11-29] MEDS ORDERED: ONDANSETRON 4 MG/2 ML (SDV) Z0FRAN ONE (16:15)
[2018-11-29] MEDS ORDERED: meTOprolol 5 MG/5 ML (LOPRESSOR) VIAL ONE (16:15)
[2018-11-29] MEDS ORDERED: DEXAMETHASONE 10 MG/ML (DECADRON) 1 ML VIAL ONE (16:16)
[2018-11-29] MEDS ORDERED: SEVOFLURANE (ULTANE) 15 ML INHAL SOLN ONE ×2 (16:27→16:47)
[2018-11-29] MEDS ORDERED: BUPIVACAINE 0.25% 30 ML (SENSORCAINE) VIAL ONE (16:46)
[2018-11-29] MEDS ORDERED: MEPERIDINE (DEMEROL) INJ 50 MG/ML ONE (17:09)
[2018-11-29] MEDS ORDERED: ONDANSETRON 4 MG/2 ML (SDV) Z0FRAN IVP PRN (17:30)
[2018-11-29] MEDS ORDERED: PROMETHAZINE INJ 25 MG/ML (PHENERGAN) AMP IVP ONE (17:30)
[2018-11-29] MEDS ORDERED: MEPERIDINE (DEMEROL) INJ 50 MG/ML IVP ONE (17:30)
[2018-11-29] MEDS ORDERED: morphine INJ 10 MG/ML 1ML (SYR OR VIAL) IVP ONE (17:30)
[2018-11-29] MEDS ORDERED: HYDROmorphone 2 MG/ML VIAL (DILAUDID) IV ONE (17:30)
--- NOTE | 2018-11-29 17:52 | NUR ---
Patient returned from surgery on hospital bed with recovery room staff and report received from JAHAIRA Campos.
--- NOTE | 2018-11-29 19:00 | Diagnostic Imaging Report ---
INDICATION: Fluoroscopy during left hip surgery. FINDINGS: Fluoroscopy was provided in the OR during left hip ORIF. 1 minute 58 seconds of fluoroscopy was utilized. Images demonstrate an intramedullary carmela and compression screw transfixing left hip. IMPRESSION: Fluoroscopy during left hip ORIF. Dictated by: Dictated on workstation # [id number]
[2018-11-29] MEDS: KETOROLAC 15 MG/ML VIAL IV PRN (20:39)
[2018-11-29] MEDS: D5 1/2 NS W/KCL 20 MEQ/L 1,000 ML IV SCH ×2 (21:48→22:13)
[2018-11-29] MEDS: ceFAZolin 2 GM IV Premixed 50 ML IV SCH (23:22)
[2018-11-30] MEDS: HYDROcodone/APAP 5 MG/325 MG (LORTAB) TAB PO PRN ×4 (00:35→23:57)
[2018-11-30] MEDS: RT-ALBUTEROL/IPRATROPIUM 3 ML (DUONEB) VIAL INH SCH ×6 (02:34→22:28)
[2018-11-30] MEDS: KETOROLAC 15 MG/ML VIAL IV PRN (02:52)
[2018-11-30 03:16] VITALS: BP 102/64
[2018-11-30] MEDS: D5 1/2 NS W/KCL 20 MEQ/L 1,000 ML IV SCH ×3 (04:58→19:28)
[2018-11-30 05:06] LABS: BASOPHILS % (AUTO) 0 % (0-10); EOSINOPHILS # (AUTO) 0.1 10^3/uL (0.0-0.3); EOSINOPHILS % (AUTO) 2 % (0-10); HEMATOCRIT 36 % (40-54); HEMOGLOBIN 11.6 G/DL (13.3-17.7); LYMPHOCYTES % (AUTO) 17 % (12-44); MEAN CORPUSCULAR HEMOGLOBIN 31 PG (25-34); MEAN CORPUSCULAR HGB CONC 32 G/DL (32-36); MEAN CORPUSCULAR VOLUME 96 FL (80-99); MEAN PLATELET VOLUME 9.4 FL (7.4-10.4); MONOCYTES % (AUTO) 16 % (0-12); NEUTROPHILS % (AUTO) 66 % (42-75); PLATELET COUNT 184 10^3/uL (130-400); WHITE BLOOD COUNT 6.1 10^3/uL (4.3-11.0)
[2018-11-30 05:16] LABS: PROTHROMBIN TIME PATIENT 13.8 SEC (12.2-14.7)
[2018-11-30 05:26] LABS: ALANINE AMINOTRANSFERASE 11 U/L (0-55); ALBUMIN 2.8 GM/DL (3.2-4.5); ALKALINE PHOSPHATASE 66 U/L (40-136); BILIRUBIN,TOTAL 0.6 MG/DL (0.1-1.0); BUN/CREATININE RATIO 7; CALCIUM 8.3 MG/DL (8.5-10.1); CARBON DIOXIDE 24 MMOL/L (21-32); CHLORIDE 105 MMOL/L (98-107); CREATININE SERUM 0.75 MG/DL (0.60-1.30); GFR ESTIMATED > 60; GLUCOSE 122 MG/DL (70-105); POTASSIUM 4.2 MMOL/L (3.6-5.0); SODIUM 137 MMOL/L (135-145); TOTAL PROTEIN 5.4 GM/DL (6.4-8.2)
[2018-11-30] MEDS: ceFAZolin 2 GM IV Premixed 50 ML IV SCH ×2 (06:12→15:16)
[2018-11-30 07:28] VITALS: BP 106/69
[2018-11-30] MEDS: ENOXAPARIN 40 MG/0.4 ML (LOVENOX) SYR SC SCH (07:52)
[2018-11-30] MEDS: DILTIAZEM 120 MG (CARDIZEM CD) CAP PO SCH (07:53)
[2018-11-30] MEDS: DOCUSATE SODIUM 100 MG (COLACE) CAP PO SCH ×2 (07:53→21:29)
[2018-11-30] MEDS: SENNA W/DOCUSATE (SENOKOT S) TABLET PO SCH ×2 (07:53→21:29)
--- NOTE | 2018-11-30 10:07 | Physical Therapy Evaluation ---
PT Evaluation-General Medical Diagnosis Admission Date Nov 27, 2018 at 00:01 Medical Diagnosis: left hip fx, Closed reduction/placement of cephalomedullary nail Left femur Onset Date: Nov 26, 2018 Therapy Diagnosis Therapy Diagnosis: impaired mobility, ,strength, endurance Height/Weight Height (Feet): 5 Height (Inches): 7.00 Weight (Pounds): 175 Weight (Ounces): 9.3 Precautions Precautions/Isolations: Fall Prevention, Standard Precautions Weight Bear Status Right Lower Extremity: Right Full Weight Bearing Left Lower Extremity: Left Non Weight Bearing Referral Physician: Mao Reason for Referral: Evaluation/Treatment Medical History Additional Medical History OJH-Jtkdmo-Ylttch Hx Patient Social History Living Status: Lives at home with Alcohol Use: Regular Use Recreational Drug Use: No Smoking Status: Current Everyday Smoker Recent Foreign Travel: No Contact w/other who traveled: No Recent Hopitalizations: No (BROKEN ANKLE LEFT APPRX 1995, RIGHT SHOULDER SURG APPRX 1982) Recent Infectious Disease Expo: No Past Medical History Atrial fibrillation Tobacco use EtOHism Reviewed History: Yes Social History Patient is unwilling to disclose his home environment, he says he has had issues like this before and has it all figured out and gets irritated at the questions. Prior/Core FIM Prior Level of Function Therapy Code Descriptions/Definitions Functional Whitley Measure: 0=Not Assessed/NA 4=Minimal Assistance 1=Total Assistance 5=Supervision or Setup 2=Maximal Assistance 6=Modified Whitley 3=Moderate Assistance 7=Complete Whitley Therapy Quality Codes: 6 Independent with activity with or without an assistive device 5 Patient requires set up or clean up by helper. Patient completes activity by themselves 4 Supervision or touching assist (CGA). Leslie provide cues , steadying assist 3 The helper provides less than half the effort to complete the activity 2 The helper provides more than half the effort to complete the activity 1 Dependent. The helper does all the effort to complete an activity 7 Patient refused to complete or attempt activity 9 The patient did not perform the activity before the current illness or injury 88 Not attempted due to Medical conditions or safety concerns Functional Abilities and Goals: Independent: Patient completed the activities by him/herself, with or without an assistive device, with no assistance from a helper. Needed Some Help: Patient needed partial assistance from another person to complete activities. Dependent: A helper completed the activities for the patient. Unknown: Not Applicable: unknown PT Evaluation-Current Subjective Patient in bed pre tx, agrees to PT reluctantly, has 5/10 pain in left hip. Pt/Family Goals to be independent at home Objective Patient Orientation: Person, Place, Situation Attachments: Oxygen, IV ROM/Strength ROM Lower Extremities NT Strength Lower Extremities RLE 4/5 gross Sensory Vision: Wears Glasses Hearing: Functional Sensation Right Lower Extremit: Intact Sensation Left Lower Extremity: Impaired Sensation Lower Extremities Patient has numbness in his left thigh Transfers Therapy Code Descriptions/Definitions Functional Whitley Measure: 0=Not Assessed/NA 4=Minimal Assistance 1=Total Assistance 5=Supervision or Setup 2=Maximal Assistance 6=Modified Whitley 3=Moderate Assistance 7=Complete Whitley Transfers (B, C, W/C) (FIM): 3 Scootin Rollin Supine to/from Sit: 3 Sit to/from Stand: 3 Patient performs supine to sit very slowly, resists therapist assist. Gait Mode of Locomotion: Walk Anticipated Mode of Locomotion: Walk Gait (FIM): 1 Distance: 2' Gait Level of Assist: 4 Gait Persons Needed: 1 Gait Assistive Device: FWW Comments/Gait Description Patient cannot lift his right foot from the floor and has to scoot and twist on it to get to the recliner. Balance Sitting Static: Fair Sitting Dynamic: Fair Standing Static: Fair Standing Dynamic: Fair Treatment seated BLE exercises x20 (AP, LAQ) Assessment/Needs Patient has impaired mobility, strength, endurance. Pain limits movement profoundly. Rehab Potential: Fair PT Short Term Goals Short Term Goals Time Frame: Dec 07, 2018 Transfers (B,C,W/C) (FIM): 4 Gait (FIM): 1 Gait Distance Comment: 20' Gait Level of Assist: 4 Gait Assistive Device: FWW PT Plan Problem List Problem List: Activity Tolerance, Functional Strength, Safety, Balance, Gait, Transfer, Bed Mobility, ROM Treatment/Plan Treatment Plan: Continue Plan of Care Treatment Plan: Bed Mobility, Education, Functional Activity Avis, Functional Strength, Gait, Safety, Therapeutic Exercise, Transfers Treatment Duration: Dec 07, 2018 Frequency: 11 times per week Estimated Hrs Per Day: .25 hour per day Patient and/or Family Agrees t: Yes Safety Risks/Education Patient Education: Gait Training, Transfer Techniques, Reviewed Precautions, Correct Positioning, Safety Issues Teaching Recipient: Patient Teaching Methods: Demonstration, Discussion Response to Teaching: Reinforcement Needed Discharge Recommendations Plan Patient will perform bed mobility and transfer training, balance and endurance training, functional strengthening, stair training, gait training, and education, to improve functional mobility and independence at home. Therapy D/C Recommendations: Home w/ Family Support Time/GCodes Time In: 929 Time Out: 954 Total Billed Treatment Time: 25 Total Billed Treatment 1 visit AYLA 15' FA 10' SHEREEN CRENSHAW PT Nov 30, 2018 10:07
--- NOTE | 2018-11-30 10:26 | Progress Note - Hospitalist ---
Subjective HPI/CC On Admission Date Seen by Provider: Nov 30, 2018 Time Seen by Provider: 09:30 Subjective/Events-last exam Pt doing fairly well since surgery went uncomplicated yesterday INR remains 1.0 after vitamin K reversed Coumadin No BM yet but gas is produced Lungs are clear and will continue nebulizer treatments Inpatient rehab tomorrow Coumadin will be restarted tonight and Lovenox of 40mg subQ daily and will bridge to 1mg per kg in two days to prevent bleeding from the op site and pt in agreement with the plan Review of Systems General: Fatigue Pulmonary: Cough Musculoskeletal: leg pain Objective Exam Vital Signs Vital Signs Date Time Temp Pulse Resp B/P (MAP) Pulse Ox O2 Delivery O2 Flow Rate FiO2 11/30/18 20:00 Nasal Cannula 2.00 11/30/18 19:39 98.8 100 18 117/83 (94) 96 Capillary Refill : Less Than 3 SecondsLess Than 3 Seconds General Appearance: No Apparent Distress, WD/WN, Chronically ill Respiratory: Chest Non Tender, Lungs Clear, Normal Breath Sounds, No Accessory Muscle Use, No Respiratory Distress, Decreased Breath Sounds Cardiovascular: Regular Rate, Rhythm, No Edema, No Gallop, No JVD, No Murmur, Normal Peripheral Pulses Extremity: Normal Capillary Refill, Normal Inspection, Normal Range of Motion (except left leg), Non Tender, No Calf Tenderness, No Pedal Edema Neurologic/Psychiatric: Alert, Oriented x3, No Motor/Sensory Deficits, Normal Mood/Affect Results/Procedures Lab Laboratory Tests 11/30/18 04:55 Patient resulted labs reviewed. Assessment/Plan Assessment and Plan Assess & Plan/Chief Complaint Assessment: (1) Atrial fibrillation with rapid ventricular response now controlled and transferred to 4th floor (2) Closed left femoral fracture- s/p repair per Dr Cavanaugh POD # 1 (3) Fall (4) Alcohol dependence 5. Smoker 6. Coarse BS on lung exam-now resolved 7. OAC restart Coumadin today Plan: Repair went without complication ETOH withdrawal protocol Vit K given to reverse INR in order to minimize hemorrhage during surgery and likely will require long bridge with Lovenox until therapeutic Nebs for coarse BS on exam yesterday and resolved today on Nebs and IS Smoking cessation IRF at [place] from acute care tomorrow Lovenox 40mg SQ today Diagnosis/Problems Diagnosis/Problems (1) Closed left femoral fracture Status: Acute Qualifiers: Encounter type: initial encounter Femur location: neck, unspecified portion Qualified Codes: S72.002A - Fracture of unspecified part of neck of left femur, initial encounter for closed fracture (2) Smoker Status: Chronic (3) Rales Status: Acute (4) Warfarin anticoagulation Status: Chronic (5) Fall Status: Acute Qualifiers: Encounter type: initial encounter Qualified Codes: W19.XXXA - Unspecified fall, initial encounter (6) Alcohol dependence Status: Chronic Qualifiers: Substance use status: uncomplicated Qualified Codes: F10.20 - Alcohol dependence, uncomplicated (7) Atrial fibrillation with rapid ventricular response Status: Acute Clinical Quality Measures DVT/VTE Risk/Contraindication: Risk Factor Score Per Nursin RFS Level Per Nursing on Admit: 3=High EDNA SUTTON DO Nov 30, 2018 10:26
[2018-11-30 12:08] VITALS: BP 108/61
--- NOTE | 2018-11-30 13:52 | Occupational Therapy Eval ---
OT Evaluation-General/PLF Medical Diagnosis Admission Date Nov 27, 2018 at 00:01 Medical Diagnosis: left hip fx, Closed reduction/placement of cephalomedullary nail Left femur Onset Date: Nov 26, 2018 Therapy Diagnosis Therapy Diagnosis: Weakness Height/Weight Height (Feet): 5 Height (Inches): 7.00 Weight (Pounds): 175 Weight (Ounces): 9.3 Precautions Precautions/Isolations: Fall Prevention, Standard Precautions Safety Interventions: Bed Exit Alarm Weight Bear Status Weight Bearing Restriction: Non Weight Bearing Location Restriction: L LE Referral Physician: Mao Referral Reason: Activity Tolerance, Self Care, Evaluation/Treatment, Strengthening/ROM Medical History Pertinent Medical History: Atrial Fib Additional Medical History Hip replacement, significant alcohol use. Current History Pt. fell outside at home. Fx left hip. Reviewed History: Yes Social History Home: Single Level Current Living Status: Spouse Entry Into Home: Stairs With Railing Steps Into Home: 2 ADL-Prior Level of Function Therapy Code Descriptions/Definitions Functional [place] Measure: 0=Not Assessed/NA 4=Minimal Assistance 1=Total Assistance 5=Supervision or Setup 2=Maximal Assistance 6=Modified [place] 3=Moderate Assistance 7=Complete [place] Therapy Quality Codes: 6 Independent with activity with or without an assistive device 5 Patient requires set up or clean up by helper. Patient completes activity by themselves 4 Supervision or touching assist (CGA). [place] provide cues , steadying assist 3 The helper provides less than half the effort to complete the activity 2 The helper provides more than half the effort to complete the activity 1 Dependent. The helper does all the effort to complete an activity 7 Patient refused to complete or attempt activity 9 The patient did not perform the activity before the current illness or injury 88 Not attempted due to Medical conditions or safety concerns Functional Abilities and Goals: Independent: Patient completed the activities by him/herself, with or without an assistive device, with no assistance from a helper. Needed Some Help: Patient needed partial assistance from another person to complete activities. Dependent: A helper completed the activities for the patient. Unknown: Not Applicable: ADL PLOF Comments Pt. reports that he was independent with daily tasks previous to this. Self Care: Unknown Functional Cognition: Unknown DME/Equipment Comments Pt. states that he has a walker and wheelchair from previous health issues, but does not currently use them at home. Pt. states that he only sponge bathes at home. Does not articulate why. Occupation: Retired per pt. Drive Self: Yes OT Current Status Subjective Pt. reports pain in left hip but does not state pain level. Nursing is aware of pain. Appearance Pt. is up in chair. Requests to go back to bed. Mental Status/Objective Patient Orientation: Person Attachments: IV, Oxygen Current Hand Dominance: Right Upper Extremity ROM WFL ADL-Treatment Therapy Code Descriptions/Definitions Functional [place] Measure: 0=Not Assessed/NA 4=Minimal Assistance 1=Total Assistance 5=Supervision or Setup 2=Maximal Assistance 6=Modified [place] 3=Moderate Assistance 7=Complete [place] Therapy Quality Codes: 6 Independent with activity with or without an assistive device 5 Patient requires set up or clean up by helper. Patient completes activity by themselves 4 Supervision or touching assist (CGA). [place] provide cues , steadying assist 3 The helper provides less than half the effort to complete the activity 2 The helper provides more than half the effort to complete the activity 1 Dependent. The helper does all the effort to complete an activity 7 Patient refused to complete or attempt activity 9 The patient did not perform the activity before the current illness or injury 88 Not attempted due to Medical conditions or safety concerns Lower Body Dressing (FIM): 1 Transfers (B, C, W/C) (FIM): 3 Pt. very guarded with movement. Requires increased time and effort to stand from chair. Min assist to stand. Pt. requires cues and min assist to pivot/hop on right LE to transfer to bed. Increased time required. Max cues. Pt. requires max assist for sit-supine. Max assist for bed mobility. Other Treatments Pt. is educated on purpose of OT treatment. OT educates pt. on possible use of AE to increase independence with LE ADLs. Pt. states that he wont need this, that he has a "huge support system." Will bring AE in anyway to educate pt. on LE ADLs and being more independent overall. Education OT Patient Education: Correct positioning, Modified ADL techniques, Progress toward Goal/Update tx plan, Purpose of tx/functional activities, Reviewed precautions, Rehab process, Transfer techniques Teaching Recipient: Patient Teaching Methods: Demonstration, Discussion Response to Teaching: Verbalize Understanding, Return Demonstration OT Short Term Goals Short Term Goals Time Frame: Dec 07, 2018 Eating(FIM): 5 Grooming(FIM): 5 Bathing(FIM): 4 Upper Body Dressing(FIM): 5 Lower Body Dressing(FIM): 4 Toileting(FIM): 4 Transfers (B,C,W/C) (FIM): 4 Toilet/Commode Transfer(FIM): 4 Additional Short Term Goals: 1-Demonstrate ADL Tasks, 2-Verbalize Understanding, 3-ImproveStrength/Avis 1=Demonstrate adherence to instructed precautions during ADL tasks. 2=Patient will verbalize/demonstrate understanding of assistive d evices/modifications for ADL. 3=Patient will improve strength/tolerance for activity to enable patient to perform ADL's. OT Fci Goals Fci Goals Time Frame: Dec 14, 2018 Eating (FIM): 6 Grooming(FIM): 6 Bathing(FIM): 5 Upper Body Dressing(FIM): 5 Lower Body Dressing(FIM): 5 Toileting(FIM): 6 Transfers (B,C,W/C) (FIM): 6 Toilet/Commode Transfer(FIM): 6 Shower Transfer(FIM): 5 Additional Goals: 1-Demonstrate ADL Tasks, 2-Verbalize Understanding, 3- ImproveStrength/Avis 1=Demonstrate adherence to instructed precautions during ADL tasks. 2=Patient will verbalize/demonstrate understanding of assistive devices/modific ations for ADL. 3=Patient will improve strength/tolerance for activity to enable patient to perform ADL's. OT Education/Plan Problem List/Assessment Assessment: Decreased Activ Tolerance, Decreased UE Strength, Dependent Transfers, Impaired Bed Mobility, Impaired Cognition, Impaired Funct Balance, Impaired I ADL's, Impaired Self-Care Skills, Restricted Funct UE ROM Discharge Recommendations Plan Pt. presents with weakness, and decreased ADL skills. Would benefit from OT to increase overall ability to care for self. Plan/Recommendations: Continue POC Comment Pt. would benefit from continued occupational therapy to increase overall strength and independence. Treatment Plan/Plan of Care Treatment,Training & Education: Yes Patient would benefit from OT for education, treatment and training to promote independence in ADL's, mobility, safety and/or upper extremity function for ADL's. Plan of Care: ADL Retraining, Functional Mobility, UE Funct Exercise/Act Treatment Duration: Dec 14, 2018 Frequency: 5 times per week Estimated Hrs Per Day: .5 hour per day Agreement: Yes Rehab Potential: Fair Time/GCodes Start Time: 10:55 Stop Time: 11:18 Total Time Billed (hr/min): 23 Billed Treatment Time 1, EVH x 10minutes, FA x 13minutes MELYSSA WARNER OT Nov 30, 2018 13:51
--- NOTE | 2018-11-30 14:32 | Anesthesia-General Post-Op ---
General Patient Condition Mental Status/LOC: Same as Preop Cardiovascular: Satisfactory Nausea/Vomiting: Absent Respiratory: Satisfactory Pain: Controlled Complications: Absent Post Op Complications Complications None Follow Up Care/Instructions Patient Instructions None needed. Anesthesia/Patient Condition Patient Condition Patient is doing well, no complaints, stable vital signs, no apparent adverse anesthesia problems. No complications reported per nursing. ISIDRA MURILLO CRNA Nov 30, 2018 14:32
--- NOTE | 2018-11-30 14:43 | NUR ---
IRF Evaluation Order received to evaluate patient for the ARU. Chart review complete and findings discussed with Dr. Coronado - patient accepted. It is noted patient's primary insurance is [employer], no secondary listed. According to [employer], inpatient rehabilitation services do not require prior authorization. Met with patient to discuss details of rehabilitation program. Patient states he has hx of L knee sx and is familiar with rehabilitation process. Information specific to inpatient program reviewed, e.g., 3 hrs/day, 5 days/wk, daily physician oversight, etc. Conversation concluded with patient stating he intends to discuss information with his spouse to formulate a decision. CM/SS notified. Will continue to follow. Thank you for this referral.
--- NOTE | 2018-11-30 15:32 | Physical Therapy Daily Note ---
PT Daily Note-Current Subjective Patient in bed pre tx, agrees to PT but not until he has a piece of pizza that his is going to bring him. After a time PT comes back and he has had his pizza and he agrees to do PT now but patient is very anxious and has 9/10 pain in left hip, nurse comes to room and gives him pain meds. Patient is visibly shaking and does so for the whole treatment. Appearance Patient in recliner post tx with nurse call, phone, tray, all needs met, in room. Mental Status Patient Orientation: Person, Place, Situation Attachments: IV Transfers Therapy Code Descriptions/Definitions Functional [place] Measure: 0=Not Assessed/NA 4=Minimal Assistance 1=Total Assistance 5=Supervision or Setup 2=Maximal Assistance 6=Modified [place] 3=Moderate Assistance 7=Complete [place] Therapy Quality Codes: 6 Independent with activity with or without an assistive device 5 Patient requires set up or clean up by helper. Patient completes activity by themselves 4 Supervision or touching assist (CGA). [place] provide cues , steadying assist 3 The helper provides less than half the effort to complete the activity 2 The helper provides more than half the effort to complete the activity 1 Dependent. The helper does all the effort to complete an activity 7 Patient refused to complete or attempt activity 9 The patient did not perform the activity before the current illness or injury 88 Not attempted due to Medical conditions or safety concerns Transfers (B, C, W/C) (FIM): 3 Scootin Rollin Supine to/from Sit: 3 Sit to/from Stand: 4 Bed to/from Chair: 4 Mod assist for supine to sit, patient does this very slowly, resists PT assistance. Cues for hand placement and safety. Sit to stand min assist, patient is still NWB on the left side and he is compliant with that. Weight Bearing Right Lower Extremity: Right Full Weight Bearing Left Lower Extremity: Left Non Weight Bearing Gait Training Gait (FIM): 1 Distance: 3' Gait Level of Assist: 4 Gait Persons Needed: 1 Gait Assistive Device: FWW Patient still goes to the recliner with sliding/twisting his right foot and not actually making a step. Exercises Supine Ex: Ankle pumps, Quad Set, Glut sets, Heel Slides, Hip abd/add Supine Reps: 10 (actually performed in recliner with legs elevated) Treatments bed mobility and transfers, ambulation, LE exercise Assessment Current Status: Poor Progress Patient shaking all over during whole treatment. PT Short Term Goals Short Term Goals Time Frame: Dec 07, 2018 Transfers (B,C,W/C) (FIM): 4 Gait (FIM): 1 Gait Distance Comment: 20' Gait Level of Assist: 4 Gait Assistive Device: FWW PT Plan Problem List Problem List: Activity Tolerance, Functional Strength, Safety, Balance, Gait, Transfer, Bed Mobility, ROM Treatment/Plan Treatment Plan: Continue Plan of Care Treatment Plan: Bed Mobility, Education, Functional Activity Avis, Functional Strength, Gait, Safety, Therapeutic Exercise, Transfers Treatment Duration: Dec 07, 2018 Frequency: 11 times per week Estimated Hrs Per Day: .25 hour per day Patient and/or Family Agrees t: Yes Safety Risks/Education Patient Education: Gait Training, Transfer Techniques, Reviewed Precautions, Correct Positioning, Safety Issues Teaching Recipient: Patient Teaching Methods: Demonstration, Discussion Response to Teaching: Reinforcement Needed Time/GCodes Time In: 1502 Time Out: 1525 Total Billed Treatment Time: 23 Total Billed Treatment 1 visit FA 23' SHEREEN CRENSHAW PT Nov 30, 2018 15:32
[2018-11-30 16:00] VITALS: BP 97/58
--- NOTE | 2018-11-30 16:04 | OPERATIVE REPORT ---
DATE OF SERVICE: 11/29/2018 PREPROCEDURAL DIAGNOSIS: Minimally displaced, closed, unstable intertrochanteric fracture of left proximal femur. POSTPROCEDURAL DIAGNOSIS: Minimally displaced, closed, unstable intertrochanteric fracture of left proximal femur. PROCEDURE PERFORMED: Closed manipulation followed by placement of a cephalomedullary nail, left femur. IMPLANTS USED: [employer] short TFN size 11 mm in diameter x 170 mm in length with 130 degree proximal angle and a 95 mm lag screw. ATTENDING SURGEON: Dr. Rafi Yip. HOSPICE AIDE: HALLE Ignacio; MrBill Alvarez's assistance was required secondary to the complexity of the case, to hold the necessary retractors, protecting vital neurovascular and soft tissue structures and to increase the efficiency and efficacy of the case; this case would not have been possible without the presence of an speech assistant. ANESTHESIA: General endotracheal. ESTIMATED BLOOD LOSS: 100 mL. COMPLICATIONS: None. SPECIMENS: None. DRAINS: None. FLUIDS: Per anesthesia record. BRIEF HISTORY AND INDICATIONS: The patient is a 63-year-old male with a history of atrial fibrillation and chronic alcoholism, who on Wednesday sustained a mechanical ground level fall, landing onto his left hip. He subsequently had severe left hip pain and an inability to bear weight or ambulate on his left lower extremity. He was subsequently transferred to the [facility] Emergency Department for evaluation. Upon presentation, it was noted that the patient was significantly inebriated and in active atrial fibrillation with rapid ventricular response. Plain radiographs of the patient's pelvis and left femur demonstrated a minimally displaced intertrochanteric fracture of the left proximal femur. Orthopedic Service was consulted for definitive management of his injury. The patient denied other associated musculoskeletal injuries, he denied any head trauma or loss of consciousness. On exam of the left lower extremity, it was otherwise stable, motor and sensory function was grossly intact, all compartments were soft and compressible, the skin was intact and there were no open wounds. I discussed the nature of his injury in detail including the need for operative stabilization. I discussed the treatment plan with the patient and his in detail preoperatively including the risks, benefits, potential complications, expected outcomes, indications and alternatives. I also explained to the patient as well as medical staff and nursing staff that surgical treatment would need to be delayed after his initial presentation secondary to the patient being on Coumadin and with an INR of 2.5. The patient was admitted to the Medical Service after presentation to the hospital. His INR was reversed per protocol and his INR decreased to a safe level at the time of surgery on 11/29/2018. The patient gave informed written consent to proceed as planned with the recommended treatment after all of his questions were answered to his satisfaction. PROCEDURE NOTE: After correctly identifying the patient in the preoperative holding area and after his left lower extremity was appropriately marked, he was transferred to the operating room. Once in the operating room, the patient had successful induction of general endotracheal anesthesia, he was transferred to a radiolucent fracture table and placed in the supine position. All bony prominences were meticulously padded. The lower extremities were secured to the fracture table in the standard fashion, placed in the scissor position. A closed reduction maneuver was then performed of the left hip under fluoroscopic guidance until the position of the proximal femur and fracture were in acceptable alignment prior to proceeding with the case. The operative site was then prepped and draped in the routine sterile fashion. Prior to beginning the case, we completed an operating room timeout with all parties involved in the case and agreement and verified appropriate infusion of prophylactic antibiotics. A small incision of approximately 3 cm in length was made two fingerbreadths proximal to the tip of the greater trochanter with a 10-blade scalpel, incising through the skin and subcutaneous tissue. Blunt Metzenbaum scissors were then used to bluntly dissect through the fascia of the gluteus zara to give access to the tip of the greater trochanter. A guide pin for the cephalomedullary nail was then introduced into the proximal femur under fluoroscopic guidance after the appropriate starting point was fluoroscopically verified. The guide pin was advanced down the proximal femur just distal to the lesser trochanter. Opening reamer was then used over the guide pin to make the pilot captain hole for the nail. Ball tip guidewire was then introduced into the femur at this point. Prior to inserting the nail, we once again verified that the fracture was acceptably aligned in both the AP and lateral planes. The short cephalomedullary nail was then introduced into the proximal femur over the ball-tipped guidewire and tapped into the appropriate position in the proximal femur with light taps of the mallet. Ball tipped guidewire was then removed. The guide pin for the lag screw was then introduced into the head and neck of the proximal femur with the use of the external guide. Once the guide pin was in the appropriate position, we measured for the length of the lag screw, which was determined to be 95 mm. The cortical and step reamers were then used over the guide pin to prepare the path for the cephalomedullary lag screw. We did tap over the guide pin prior to inserting the screw. The lag screw was then inserted into the proximal femur over the guide pin into the appropriate position so as to give the appropriate tip to apex distance as verified on AP and lateral C-arm images. The nail was then locked proximally in a static mode. The distal locking bolt was then introduced through the nail with use of the aiming arm. This completed the application of our instrumentation for the fracture. Final AP and lateral C-arm images confirmed that all the hardware was in the appropriate position and that the fracture was acceptably aligned. The wounds were then irrigated with copious amounts of sterile saline and then closed in standard fashion using #0 Vicryl for the deep fascia, 2-0 Vicryl for the subcutaneous tissue, and a running 4-0 Monocryl subcuticular stitch and Steri-Strips for the skin. The patient had sterile dressings applied followed by being awakened and extubated in the operating room without incident. He was then transferred to the PACU in stable condition. He tolerated the procedure quite well without complications. All counts were correct at the end of the case. Job ID: [id number] DocumentID: [id number] Dictated Date: 11/30/2018 11:32:37 Punch Molder Date: 11/30/2018 16:03:42 Dictated By: RAFI YIP
[2018-11-30] MEDS ORDERED: warFARin 1 MG (COUMADIN) TAB PO SCH (18:00)
[2018-11-30] MEDS ORDERED: warFARin 5 MG (COUMADIN) TAB PO SCH (18:00)
--- NOTE | 2018-11-30 18:01 | Progress Note ---
Standard Progress Note Progress Notes/Assess & Plan Date Seen by a Provider: Nov 30, 2018 Time Seen by a Provider: 17:58 Progress/Assessment & Plan Pt HOPE, doing fine, pain controlled, moblizing well OOB, no complaints VSSAF Labs stable LLE: dressings with mild ss drainage, all compartments soft/compressible, m otor/sensation grossly intact, foot well perfused. A/P: S/P IMN Left femur secondary to intertrochanteric fracture, POD #1 Orthopedically stable Continue daily PT/OT, WBAT LLE VTE prophylaxis Current pain control regimen OK to d/c to rehab from ortho standpoint. Instructions given Questions answered F/U outpatient in 2 weeks Laboratory Tests 11/30/18 04:55 Vitals Signs Temperature: 96.8, Source: Temporal, Heart Rate: 120, Respiratory Rate: 22, BP: 97/58, Pulse Oximetry: 96 RAFI YIP DO Nov 30, 2018 18:01
--- NOTE | 2018-11-30 18:04 | Discharge Inst-Surgical ---
Discharge Inst-Surgical Consults/Follow Up Goal/Follow Up Appt.: Follow up with Dr. Yip at [address], [place] in 2 weeks; please call the office to confirm your appointment. Activity You may bear weight as tolerated on your Left leg Walking Assistive Device: Walker Activity Instructions: Avoid Stress to Incision Driving Instructions: No Driving/Refer to Dr. Ramires Discharge Diet: No Restrictions Skin/Wound Care Infection Signs and Symptoms: Increased Redness, Foul Odor of Wound, Increased Drainage, Increased Swelling, Temperature Above 101 F Wound Care Comment: You may remove your dressings in 3 days and shower, no baths or soaking tubs RAFI YIP DO Nov 30, 2018 18:04
[2018-11-30 19:39] VITALS: BP 117/83
[2018-12-01 00:19] VITALS: BP 119/72
[2018-12-01] MEDS: D5 1/2 NS W/KCL 20 MEQ/L 1,000 ML IV SCH ×2 (02:03→08:09)
[2018-12-01] MEDS: RT-ALBUTEROL/IPRATROPIUM 3 ML (DUONEB) VIAL INH SCH ×3 (02:40→10:49)
[2018-12-01 06:16] LABS: BASOPHILS % (AUTO) 1 % (0-10); EOSINOPHILS # (AUTO) 0.2 10^3/uL (0.0-0.3); EOSINOPHILS % (AUTO) 4 % (0-10); HEMATOCRIT 36 % (40-54); HEMOGLOBIN 11.6 G/DL (13.3-17.7); LYMPHOCYTES # (AUTO) 1.1 X 10^3 (1.0-4.0); LYMPHOCYTES % (AUTO) 17 % (12-44); MEAN CORPUSCULAR HEMOGLOBIN 31 PG (25-34); MEAN CORPUSCULAR HGB CONC 33 G/DL (32-36); MEAN CORPUSCULAR VOLUME 96 FL (80-99); MEAN PLATELET VOLUME 9.6 FL (7.4-10.4); MONOCYTES # (AUTO) 1.2 X 10^3 (0.0-1.0); MONOCYTES % (AUTO) 20 % (0-12); NEUTROPHILS # (AUTO) 3.6 X 10^3 (1.8-7.8); NEUTROPHILS % (AUTO) 59 % (42-75); PLATELET COUNT 216 10^3/uL (130-400); RED CELL DISTRIBUTION WIDTH 13.2 % (10.0-14.5); WHITE BLOOD COUNT 6.2 10^3/uL (4.3-11.0)
[2018-12-01 06:30] LABS: PROTHROMBIN TIME PATIENT 13.7 SEC (12.2-14.7)
[2018-12-01] MEDS: HYDROcodone/APAP 5 MG/325 MG (LORTAB) TAB PO PRN ×2 (06:43→11:20)
[2018-12-01 06:47] LABS: ALANINE AMINOTRANSFERASE 14 U/L (0-55); ALBUMIN 3.1 GM/DL (3.2-4.5); ALKALINE PHOSPHATASE 76 U/L (40-136); BILIRUBIN,TOTAL 0.4 MG/DL (0.1-1.0); BUN/CREATININE RATIO 9; CALCIUM 8.9 MG/DL (8.5-10.1); CARBON DIOXIDE 23 MMOL/L (21-32); CHLORIDE 107 MMOL/L (98-107); CREATININE SERUM 0.69 MG/DL (0.60-1.30); GFR ESTIMATED > 60; GLUCOSE 115 MG/DL (70-105); POTASSIUM 3.8 MMOL/L (3.6-5.0); SODIUM 139 MMOL/L (135-145); TOTAL PROTEIN 6.1 GM/DL (6.4-8.2)
[2018-12-01 07:08] LABS: BAND NEUTROPHILS 2 %; BASOPHILS % (MANUAL) 2 %; EOSINOPHILS % (MANUAL) 3 %; LYMPHOCYTES % (MANUAL) 20 %; MONOCYTES % (MANUAL) 13 %; NEUTROPHILS % (MANUAL) 60 %
[2018-12-01 07:09] LABS: RBC MORPH NORMAL
[2018-12-01 07:15] VITALS: BP 113/69
[2018-12-01] MEDS: DOCUSATE SODIUM 100 MG (COLACE) CAP PO SCH (08:08)
[2018-12-01] MEDS: SENNA W/DOCUSATE (SENOKOT S) TABLET PO SCH (08:08)
[2018-12-01] MEDS: ENOXAPARIN 40 MG/0.4 ML (LOVENOX) SYR SC SCH (08:08)
[2018-12-01] MEDS: DILTIAZEM 120 MG (CARDIZEM CD) CAP PO SCH (08:08)
--- NOTE | 2018-12-01 09:40 | Physical Therapy Daily Note ---
PT Daily Note-Current Subjective Patient agrees to PT. He reports he is going home today and his agrees per patient report. Pain Numeric Pain Scale: 5-Moderate Pain Location: Left Location Body Site: Hip Pain Description: Acute Mental Status Patient Orientation: Normal For Age Attachments: IV Transfers Therapy Code Descriptions/Definitions Functional [place] Measure: 0=Not Assessed/NA 4=Minimal Assistance 1=Total Assistance 5=Supervision or Setup 2=Maximal Assistance 6=Modified [place] 3=Moderate Assistance 7=Complete [place] Therapy Quality Codes: 6 Independent with activity with or without an assistive device 5 Patient requires set up or clean up by helper. Patient completes activity by themselves 4 Supervision or touching assist (CGA). Driggs provide cues , steadying assist 3 The helper provides less than half the effort to complete the activity 2 The helper provides more than half the effort to complete the activity 1 Dependent. The helper does all the effort to complete an activity 7 Patient refused to complete or attempt activity 9 The patient did not perform the activity before the current illness or injury 88 Not attempted due to Medical conditions or safety concerns Transfers (B, C, W/C) (FIM): 6 Scootin Supine to/from Sit: 6 Sit to/from Stand: 6 Bed to/from Chair: 6 Patient was adamant that PT not assist with any mobility Weight Bearing Right Lower Extremity: Right Full Weight Bearing Left Lower Extremity: Left Weight Bearing/Tolerated Gait Training Gait (FIM): 6 Distance (FIM): 3=150 ft Distance: 200' Gait Level of Assist: 6 Gait Assistive Device: FWW slow, antalgic, step to gait sequence with FWW Stair Training patient refused to attempt. States he will go up on his bottom like he has before Exercises Supine Ex: Ankle pumps, Quad Set, Heel Slides Supine Reps: 10 Seated Therapy Exercises: Long arc quads Seated Reps: 15 Assessment Patient tolerated treatment well and continued to report he will go home today. PT voices safety concerns, however, patient is adamant. PT to dismiss patient from services per his request. PT Short Term Goals Short Term Goals Time Frame: Dec 07, 2018 Transfers (B,C,W/C) (FIM): 4 Gait (FIM): 1 Gait Distance Comment: 20' Gait Level of Assist: 4 Gait Assistive Device: FWW PT Plan Treatment/Plan Treatment Plan: Discontinue PT, goals met Treatment Plan: Bed Mobility, Education, Functional Activity Avis, Functional Strength, Gait, Safety, Therapeutic Exercise, Transfers Treatment Duration: Dec 07, 2018 Frequency: 11 times per week Estimated Hrs Per Day: .25 hour per day Patient and/or Family Agrees t: Yes Time/GCodes Time In: 906 Time Out: 930 Total Billed Treatment Time: 24 Total Billed Treatment 1 visit EX 9 min GT 15 min BIJAN VILLEGAS PT Dec 01, 2018 09:40
--- NOTE | 2018-12-01 10:02 | NUR ---
CM/SS spoke with patient and he is not interested in inpatient rehab at hospital. Patient wants to return home and do outpatient PT/OT with [facility] in [place], that he has previously used.
--- NOTE | 2018-12-01 10:08 | Progress Note - Hospitalist ---
Subjective HPI/CC On Admission Date Seen by Provider: Dec 01, 2018 Time Seen by Provider: 09:00 Objective Exam Vital Signs Vital Signs Date Time Temp Pulse Resp B/P (MAP) Pulse Ox O2 Delivery O2 Flow Rate FiO2 12/01/18 16:00 84 20 135/68 99 Room Air 12/01/18 15:35 98.0 11/30/18 20:00 2.00 Capillary Refill : Less Than 3 SecondsLess Than 3 Seconds General Appearance: No Apparent Distress, WD/WN, Chronically ill Respiratory: Chest Non Tender, Lungs Clear, Normal Breath Sounds, No Accessory Muscle Use, No Respiratory Distress, Decreased Breath Sounds Cardiovascular: Regular Rate, Rhythm, No Edema, No Gallop, No JVD, No Murmur, Normal Peripheral Pulses Extremity: Normal Capillary Refill, Normal Inspection, Normal Range of Motion (except left leg), Non Tender, No Calf Tenderness, No Pedal Edema Neurologic/Psychiatric: Alert, Oriented x3, No Motor/Sensory Deficits, Normal Mood/Affect Results/Procedures Lab Laboratory Tests 12/01/18 05:25 Patient resulted labs reviewed. Assessment/Plan Assessment and Plan Assess & Plan/Chief Complaint Assessment: (1) Atrial fibrillation with rapid ventricular response now controlled and transferred to 4th floor (2) Closed left femoral fracture- s/p repair per Dr Cavanaugh POD # 1 (3) Fall (4) Alcohol dependence 5. Smoker 6. Coarse BS on lung exam-now resolved 7. OAC restart Coumadin today Plan: Repair went without complication ETOH withdrawal protocol Vit K given to reverse INR in order to minimize hemorrhage during surgery and likely will require long bridge with Lovenox until therapeutic Nebs for coarse BS on exam yesterday and resolved today on Nebs and IS Smoking cessation IRF at [place] from acute care tomorrow Lovenox 40mg SQ today Diagnosis/Problems Diagnosis/Problems (1) Closed left femoral fracture Status: Resolved Qualifiers: Encounter type: initial encounter Femur location: neck, unspecified portion Qualified Codes: S72.002A - Fracture of unspecified part of neck of left femur, initial encounter for closed fracture Resolution Date/Time: 12/01/18 @ 20:37 (2) Smoker Status: Chronic (3) Rales Status: Acute (4) Warfarin anticoagulation Status: Chronic (5) Fall Status: Acute Qualifiers: Encounter type: initial encounter Qualified Codes: W19.XXXA - Unspecified fall, initial encounter (6) Alcohol dependence Status: Chronic Qualifiers: Substance use status: uncomplicated Qualified Codes: F10.20 - Alcohol dependence, uncomplicated (7) Atrial fibrillation with rapid ventricular response Status: Acute Clinical Quality Measures DVT/VTE Risk/Contraindication: Risk Factor Score Per Nursin RFS Level Per Nursing on Admit: 3=High EDNA SUTTON DO Dec 01, 2018 10:08
[2018-12-01] MEDS ORDERED: ACHD5005 PO (10:09)
[2018-12-01] MEDS ORDERED: DILT120C94 PO (10:11)
[2018-12-01] MEDS ORDERED: ENOX80DI12 SQ (10:11)
[2018-12-01] MEDS ORDERED: DOCU100C37 PO (10:11)
--- NOTE | 2018-12-01 10:14 | Discharge Summary ---
Diagnosis/Chief Complaint Date of Admission Nov 27, 2018 at 00:01 Date of Discharge Discharge Date: Dec 01, 2018 Discharge Diagnosis (1) Closed left femoral fracture Status: Resolved (2) Smoker Status: Chronic (3) Rales Status: Acute (4) Warfarin anticoagulation Status: Chronic (5) Fall Status: Acute (6) Alcohol dependence Status: Chronic (7) Atrial fibrillation with rapid ventricular response Status: Acute Discharge Summary Discharge Physical Exam Allergies: Coded Allergies: cortisone (Unverified Allergy, Mild, 09/18/08) Isosorbide Mononitrate (Unverified Allergy, Unknown, 02/26/11) Vitals & I&Os Vital Signs Date Time Temp Pulse Resp B/P (MAP) Pulse Ox O2 Delivery O2 Flow Rate FiO2 12/01/18 16:00 84 20 135/68 99 Room Air 12/01/18 15:35 98.0 11/30/18 20:00 2.00 General Appearance: No Apparent Distress, WD/WN, Chronically ill Respiratory: Chest Non Tender, Lungs Clear, Normal Breath Sounds, No Accessory Muscle Use, No Respiratory Distress Cardiovascular: Regular Rate, Rhythm, No Edema, No Gallop, No JVD, No Murmur, Normal Peripheral Pulses Extremity: Normal Capillary Refill, Normal Inspection, Normal Range of Motion (except left leg), Non Tender, No Calf Tenderness, No Pedal Edema Neurologic/Psychiatric: Alert, Oriented x3, No Motor/Sensory Deficits, Normal Mood/Affect Hospital Course Was the Problem List Reviewed?: Yes Pt had an uneventful hospital course although lengthy when he was admitted for atrial fibrillation with rapid ventricular response and alcohol withdrawal after suffering a fall and sustaining a left hip fracture. He was stabilized, rate controlled by cardiology and Pt had Coumadin reverse with Vitamin K in order to undergo the repair by Dr. Cavanaugh with pinning of the femoral fracture. He was doing well, using IS and nebulizer treatments initiated for coarse breath sounds with good results. Pt was urinating well, bowels had not moved but passing gas and he declined anymore PT, declined inpatient rehab, is in agreement for the plan to discharge today with pain medication and all new medication was sent to [facility] and Pt will have a close follow-up with [facility]. Smoking cessation and alcohol cessation discussed. Labs (last 24 hrs) Laboratory Tests 12/01/18 05:25: White Blood Count 6.2, Red Blood Count 3.73L, Hemoglobin 11.6L, Hematocrit 36L, Mean Corpuscular Volume 96, Mean Corpuscular Hemoglobin 31, Mean Corpuscular Hemoglobin Concent 33, Red Cell Distribution Width 13.2, Platelet Count 216, Mean Platelet Volume 9.6, Neutrophils (%) (Auto) 59, Lymphocytes (%) (Auto) 17, Monocytes (%) (Auto) 20H, Eosinophils (%) (Auto) 4, Basophils (%) (Auto) 1, Neutrophils # (Auto) 3.6, Lymphocytes # (Auto) 1.1, Monocytes # (Auto) 1.2H, Eosinophils # (Auto) 0.2, Basophils # (Auto) 0.0, Neutrophils % (Manual) 60, Lymphocytes % (Manual) 20, Monocytes % (Manual) 13, Eosinophils % (Manual) 3, Basophils % (Manual) 2, Band Neutrophils 2, Blood Morphology Comment NORMAL, Prothrombin Time 13.7, INR Comment 1.0, Sodium Level 139, Potassium Level 3.8, Chloride Level 107, Carbon Dioxide Level 23, Anion Gap 9, Blood Urea Nitrogen 6L , Creatinine 0.69, Estimat Glomerular Filtration Rate > 60, BUN/Creatinine Ratio 9, Glucose Level 115H, Calcium Level 8.9, Corrected Calcium 9.6, Total Bilirubin 0.4, Aspartate Amino Transf (AST/SGOT) 20, Alanine Aminotransferase (ALT/SGPT) 14, Alkaline Phosphatase 76, Total Protein 6.1L, Albumin 3.1L 12/01/18 11:45: Glucometer 101 Microbiology 11/28/18 MRSA Screen - Final, Complete MRSA not isolated Patient resulted labs reviewed. Pending Labs Discussion & Recommendations Discharge Planning: <30 minutes discharge planning Discharge Home Medications: Active Scripts Active Lovenox (Enoxaparin Sodium) 80 Mg/0.8 Ml Syringe 80 Mg SQ BID Docusate Sodium 100 Mg Capsule 100 Mg PO BID Diltiazem 24Hr Cd (Diltiazem HCl) 120 Mg Cap.er.24h 120 Mg PO DAILY Hydrocodone/Acetaminophen 5/325mg Tablet (Acetaminophen/Hydrocodone Bitart) 1 Tab Tab 1-2 Tab PO Q4H PRN Reported Warfarin Sodium 5 Mg Tablet 5 Mg PO DAILY Warfarin Sodium 1 Mg Tablet 1 Mg PO MOWEFR TAKES AN EXTRA 1MG WEDNESDAY, WEDNESDAY, WEDNESDAY IN ADDITION TO 5MG TABLET Atorvastatin Calcium 40 Mg Tablet 40 Mg PO HS Instructions to patient/family Please see electronic discharge instructions given to patient. Clinical Quality Measures DVT/VTE Risk/Contraindication: Risk Factor Score Per Nursin RFS Level Per Nursing on Admit: 3=High Problem Qualifiers (1) Closed left femoral fracture: Encounter type: initial encounter Femur location: neck, unspecified portion Qualified Codes: S72.002A - Fracture of unspecified part of neck of left femur, initial encounter for closed fracture (2) Fall: Encounter type: initial encounter Qualified Codes: W19.XXXA - Unspecified fall, initial encounter (3) Alcohol dependence: Substance use status: uncomplicated Qualified Codes: F10.20 - Alcohol dependence, uncomplicated EDNA SUTTON DO Dec 01, 2018 10:14
--- NOTE | 2018-12-01 11:04 | NUR ---
CM/SS sent information to [facility] in [place]. Patient is having spouse or children transport him home and will help with his recovery.
[2018-12-01 15:35] VITALS: BP 135/68
--- NOTE | 2018-12-01 15:59 | NUR ---
WHEN RIGHT AC SALINE LOCK REMOVED AREA AT SITE SL. RED AND SWOLLEN. THIS NURSE EXPLAINED TO PT. THAT THE DR. MIGHT WANT TO ORDER PO ANTIBIOTICS BEFORE DISCHARGE. PT. STATED " NO. I'M FINE. I DON'T WANT YOU TO CALL THE DOCTOR." INSTRUCTED PT. TO PUT WARM PACKS TO RIGHT AC SITE SWELLING.
[2018-12-01 16:00] VITALS: BP 135/68
--- NOTE | 2018-12-01 16:00 | NUR ---
LINSEY CASANOVA demonstrates understanding of discharge instructions and accurately returns instructions upon questioning. Copy of Post-Discharge Instructions given to PT. LINSEY CASANOVA is able to manage continuing needs after discharge. Patients belongings returned to PT. Patient discharged from [facility] on 12/01/18 at 1600. LINSEY CASANOVA left floor via W/C, accompanied by STAFF AND DAUGHTER AND PER AUTO.
--- NOTE | 2018-12-01 16:19 | Cardiology Progress Note ---
Cardiology SOAP Progress Note Subjective: no cardiac complaints. Objective: I&O/Vital Signs 12/01/18 12/01/18 12/01/18 12/01/18 07:15 07:38 08:00 10:50 Temp 98.2 Pulse 85 Resp 20 B/P (MAP) 113/69 (84) Pulse Ox 95 94 94 94 O2 Delivery Room Air Room Air Room Air Room Air 11/30/18 23:59 Intake Total 3000 ml Output Total 2825 ml Balance 175 ml Weight (Pounds): 170 Weight (Ounces): 15.0 Weight (Calculated Kilograms): 77.540875 Constitutional: appears stated age; No apparent distress; well-developed, well- nourished Respiratory: chest is bilaterally symmetric, lungs clear to auscultation Cardiovascular: irregularly irregular, tachycardia, S1 and S2 Gastrointestional: No tender, No soft, No round, No distended, No pulsatile mass, No organomegaly, No guarding, No rebound, No tenderness, No hernia, No mass, No audible bowel sounds, No abnormal bowel sounds, No abdominal bruits, No spleenomegaly, No other Extremities: No normal range of motion, No non-tender, No normal inspection, No pedal edema, No calf tenderness, No normal capillary refill, No pelvis stable, No calf tenderness, No inflammation, No pedal edema, No slow capillary refill, No swelling, No other, No abrasion, No clubbing, No cyanosis, No ecchymosis, No laceration, No no lower extremity edema bilateral, No significant edema, No tenderness, No wound Neurologic/Psychiatric: no motor/sensory deficits, alert, normal mood/affect, oriented x 3, power is 5/5 both on sides Skin: No rash, No ulcerations Results/Procedures: Labs Laboratory Tests 12/01/18 05:25: White Blood Count 6.2, Red Blood Count 3.73L, Hemoglobin 11.6L, Hematocrit 36L, Mean Corpuscular Volume 96, Mean Corpuscular Hemoglobin 31, Mean Corpuscular Hemoglobin Concent 33, Red Cell Distribution Width 13.2, Platelet Count 216, Mean Platelet Volume 9.6, Neutrophils (%) (Auto) 59, Lymphocytes (%) (Auto) 17, Monocytes (%) (Auto) 20H, Eosinophils (%) (Auto) 4, Basophils (%) (Auto) 1, Neutrophils # (Auto) 3.6, Lymphocytes # (Auto) 1.1, Monocytes # (Auto) 1.2H, Eosinophils # (Auto) 0.2, Basophils # (Auto) 0.0, Neutrophils % (Manual) 60, Lymphocytes % (Manual) 20, Monocytes % (Manual) 13, Eosinophils % (Manual) 3, Basophils % (Manual) 2, Band Neutrophils 2, Blood Morphology Comment NORMAL, Prothrombin Time 13.7, INR Comment 1.0, Sodium Level 139, Potassium Level 3.8, Chloride Level 107, Carbon Dioxide Level 23, Anion Gap 9, Blood Urea Nitrogen 6L , Creatinine 0.69, Estimat Glomerular Filtration Rate > 60, BUN/Creatinine Ratio 9, Glucose Level 115H, Calcium Level 8.9, Corrected Calcium 9.6, Total Bilirubin 0.4, Aspartate Amino Transf (AST/SGOT) 20, Alanine Aminotransferase (ALT/SGPT) 14, Alkaline Phosphatase 76, Total Protein 6.1L, Albumin 3.1L 12/01/18 11:45: Glucometer 101 Microbiology 11/28/18 MRSA Screen - Final, Complete MRSA not isolated A/P: Assessment/Dx: Hip fracture, Atrial fibrillation with rapid ventricular rate, Preoperative cardiovascular risk assessment. Plan: Hip fracture, likely surgery today. Atrial fibrillation with rapid ventricular rate, DC Cardizem infusion and start Cardizem CD 120 mg. Check echocardiogram. Preoperative cardiovascular risk assessment patient will be considered at intermediate risk for perioperative major adverse cardiac events undergoing an intermediate is non-cardiac surgery. There is no cardiac contraindication to the above-mentioned procedure. Warfarin/oral anticoagulation can be held and procedure done. Thank you for your consultation. Please call me if you have any questions. Tiffanie Nielson MD, FACP, FACC, FSCAI, FHRS, CCDS Interventional Cardiology Cardiac Electrophysiology Vascular Medicine and Endovascular Interventions Breonna NIELSON MD Dec 01, 2018 16:19
== END 2018-12-01 16:00 | disposition home or self-care (01) | DRG 482 ==
LOC: EDUNIT# 21:49 → ER 21:51 → ICU 11-27 00:01 → 4TH 11-28 08:54
PROVIDERS: ADMIT Family Medicine; ATTEND Family Medicine
PROC: 0QS736Z Reposition Left Upper Femur with Intramedullary Internal Fixation Device, Percutaneous Approach (ICD-10-PCS; principal; 2018-11-29 15:06)
DX: S72.142A Displaced intertrochanteric fracture of left femur, initial encounter for closed fracture (principal); I48.91 Unspecified atrial fibrillation; F10.20 Alcohol dependence, uncomplicated; Y90.7 Blood alcohol level of 200-239 mg/100 ml; R09.89 Other specified symptoms and signs involving the circulatory and respiratory systems; F17.200 Nicotine dependence, unspecified, uncomplicated; Z79.01 Long term (current) use of anticoagulants; W19.XXXA Unspecified fall, initial encounter
CPT/HCPCS: 36415; 70450; 71045; 72125; 80048; 80053; 80306; 80320; 81000; 82962; 83735; 84100; 85007; 85025; 85027; 85610; 85730; 86850; 86900; 86901; 87081; 93005; 93306; 94640; 94664; 94760; 96361; 96374; 96375; 96376

== ENCOUNTER → 2019-01-17 | Outpatient (CLI) | payer OTHER ==
[~2019-01-17] MED LIST changes: +ACHD5005 PO; +ATOR40TA70 PO; +DILT120C94 PO; +DILT240C PO; +DOCU100C37 PO; +ENOX80DI12 SQ; +HYDR-3812 PO; +WARF-48 PO; +WARF1TAB82 PO
--- NOTE | 2019-01-17 09:20 | Diagnostic Imaging Report ---
INDICATION: Age-related osteoporosis and recent left hip fracture. COMPARISON: None FINDINGS: AP Spine L1-L4: [BMD (g/cm2): 0.684] [T-Score: -4.6] [Z-Score: -4.0] [BMD Previous: na] [BMD % Change: na] LT Hip Neck: [BMD (g/cm2): na] [T-Score: na] [Z-Score: na] LT Hip Total: [BMD (g/cm2):na] [T-Score:na] [Z-Score: na] [BMD Previous: na] [BMD % Change: na] RT Hip Neck: [BMD (g/cm2):0.530] [T-Score:-4.2] [Z-Score:-3.0] RT Hip Total: [BMD (g/cm2):0.566] [T-score:-3.7] [Z-Score:-3.1] [BMD Previous:na] [BMD % Change:na] *Indicates significant change from prior examination based on 95% confidence level. World Health Organization criteria for BMD interpretation classify patients as Normal (T-score at or above -1.0), Osteopenic (T-score between -1.0 and -2.5) or Osteoporotic (T-score at or below -2.5). LIMITATIONS AND MODIFICATION: None. FRACTURE RISK (FRAX SCORE): The ten year probability of (%): Major Osteoporotic Fracture: [36.2] Hip Fracture: [25.6] IMPRESSION: 1. Osteoporosis. 2. Baseline examination. 3. See below National Osteoporosis Foundation guidelines on when to potentially initiate pharmacologic therapy. Based on the National Osteoporosis Foundation Guidelines, pharmacologic treatment should be initiated in any of the following, unless clinical conditions suggest otherwise: * Any patient with prior fragility fracture of the hip or vertebrae. A spine fracture indicates 5X risk for subsequent spine fracture and 2X risk for subsequent hip fracture. * Osteoporosis (T-score <-2.5). * Postmenopausal women and men age 50 and older with low bone mass/osteopenia (T-score between -1.0 and -2.5) by DXA and 10-year major osteoporotic fracture greater than 20% or a 10-year probability of hip fracture greater than 3%. These fracture risks are supplied above in the FRAX score, if applicable. * Clinician judgement and/or patient preferences may indicate treatment for people with 10-year fracture probabilities above or below these levels. Dictated by: Dictated on workstation # [id number]
== END ==
LOC: RAD 08:17
PROVIDERS: ATTEND Nurse Practitioner Family
DX: S72.92XD Unspecified fracture of left femur, subsequent encounter for closed fracture with routine healing (principal); M81.0 Age-related osteoporosis without current pathological fracture
CPT/HCPCS: 77080

== ENCOUNTER 2019-05-02 07:24 | Day surgery (SDC) | payer OTHER ==
[2019-05-02] VITALS (7 sets, daily range): BP systolic 92–114; BP diastolic 70–87
[~2019-05-02] VITALS: Ht 170 cm; Wt 68.0 kg
[2019-05-02] MEDS ORDERED: HEParin 1000 UNIT/ML (10ML VIAL) FOR BOLUS ONE (07:29)
[2019-05-02] MEDS ORDERED: LIDOCAINE 1% INJ 20 ML 20 ML VIAL ONE (07:29)
[2019-05-02] MEDS ORDERED: NS IV 1000 ML 2,000 ML ONE (07:30)
[2019-05-02] MEDS ORDERED: ceFAZolin INJECTION 1,000 MG ONE (07:43)
[2019-05-02] MEDS ORDERED: NS IV 1000 ML 1,000 ML IV SCH ×2 (07:45→10:53)
[2019-05-02] MEDS ORDERED: BACITRACIN INJECTION 50,000 UNIT, SODIUM CHLORIDE 0.9% IRRIGATIO 500 ML IR ONE ×2 (07:45)
[2019-05-02 08:02] LABS: HEMOGLOBIN 15.6 G/DL (13.3-17.7); MEAN PLATELET VOLUME 9.3 FL (7.4-10.4); RED CELL DISTRIBUTION WIDTH 13.4 % (10.0-14.5); WHITE BLOOD COUNT 11.4 10^3/uL (4.3-11.0)
[2019-05-02] MEDS ORDERED: ALEN70TA2 PO (08:11)
[2019-05-02 08:21] LABS: ALANINE AMINOTRANSFERASE 26 U/L (0-55); ALBUMIN 4.1 GM/DL (3.2-4.5); ALKALINE PHOSPHATASE 90 U/L (40-136); BILIRUBIN,TOTAL 0.8 MG/DL (0.1-1.0); BUN/CREATININE RATIO 13; CARBON DIOXIDE 21 MMOL/L (21-32); CHLORIDE 102 MMOL/L (98-107); CHOLESTEROL 116 MG/DL (< 200); CREATININE SERUM 1.03 MG/DL (0.60-1.30); GFR ESTIMATED > 60; GLUCOSE 102 MG/DL (70-105); HDL CHOLESTEROL 55 MG/DL (40-60); INR 1.5 (0.8-1.4); POTASSIUM 3.5 MMOL/L (3.6-5.0); PROTHROMBIN TIME PATIENT 18.7 SEC (12.2-14.7); SODIUM 135 MMOL/L (135-145); TOTAL PROTEIN 6.9 GM/DL (6.4-8.2); TRIGLYCERIDES 106 MG/DL (<150); VLDL CHOLESTEROL 21 MG/DL (5-40)
[2019-05-02] MEDS ORDERED: NS (IVPB) 50 ML ONE (08:29)
[2019-05-02] MEDS ORDERED: HYDR-4226 PO (08:40)
[2019-05-02] MEDS ORDERED: DILT120C85 PO (08:49)
--- NOTE | 2019-05-02 08:53 | NUR ---
SPOKE WITH THE PT ALONG WITH CALLING WILLIE AND [facility] TO COMPLETE THE MED REC. PT WAS ABLE TO TELL ME HOW/WHEN HE TAKES EACH MED. WARFARIN: PT TAKES 1 (5MG) TAB ALONG WITH 1& (1MG) TAB TO EQUAL 6.5MG ONCE DAILY FILL DATES ACCORDING TO E[facility]: 03-30-2019 HYDROCODONE #20/ TAKES PRN FOR MIGRAINES FILL DATES ACCORDING TO [facility]: 02-05-2019 WARFARIN 5 MG #90/90DS 03-12-2019 ATORVASTATIN #90/90DS 03-12-2019 DILTIAZEM #90/90DS 04-04-2019 FOSAMAX #12/84DS 04-16-2019 WARFARIN 1MG #135/90DS PT INDICATES HE DOES NOT TAKE ANY OTC MEDS
[2019-05-02] MEDS ORDERED: ceFAZolin INJECTION 1,000 MG VIAL IV ONE (09:00)
[2019-05-02] MEDS ORDERED: fentaNYL INJECTION 100 MCG/2 ML AMP ONE ×2 (09:26→09:27)
[2019-05-02] MEDS ORDERED: MIDAZOLAM 5 MG/5 ML (VERSED) VIAL ONE ×2 (09:26)
--- NOTE | 2019-05-02 09:36 | Cardiac Procedure Note-CS/ASA ---
Pre-Procedure Note Pre-Op Procedure Note H&P Reviewed The H&P was reviewed, patient examined and no changes noted. Date H&P Reviewed: May 02, 2019 Time H&P Reviewed: 09:36 Conscious Sedation Pre-Proced Time 09:36 ASA Score 3 For ASA 3 and 4: Consider anesthesia and medical clearance. Also, for patients with a history of failed moderate sedation consider anesthesia. Airway Lungs Heart ASA score ASA 1: a normal healthy patient ASA 2: a patient with a mild systemic disease (mid diabetes, controlled hypertension, obesity ASA 3: a patient with a severe systemic disease that limits activity (angina, COPD, prior Myocardial infarction) ASA 4: a patient with an incapacitating disease that is a constant threat to life (CHF, renal failure) ASA 5: a moribund patient not expected to survive 24 hrs. (ruptured aneurysm) ASA 6: a declared brain- patient whose organs are being harvested. For emergent operations, add the letter E after the classification Mallampati Classification Grade 2 Sedation Plan Analgesia, Amnesia, Plan communicated to team members, Discussed options with patient/fam, Discussed risks with patient/fam The patient is an appropriate candidate to undergo the planned procedure, sedation, and anesthesia. The patient immediately re-assessed prior to indication. FELICIA MACIAS MD FACP FAC CCDS May 02, 2019 09:36 POS
[2019-05-02] MEDS ORDERED: NEO/POLY/BAC (NEOSPORIN) OINT 15 GM TUBE ONE (10:39)
[2019-05-02] MEDS ORDERED: NON-FORMULARY MEDICATION 1 EA EA (Alendronate Sodium (Fosamax) 70 MG) PO SCH (11:00)
[2019-05-02] MEDS ORDERED: PATIENT MAY USE OWN MEDS, ALL PO SCH (11:00)
[2019-05-02] MEDS ORDERED: NON-FORMULARY MEDICATION 1 EA EA (Hydrocodone/Acetaminophen (Norco 5-325 Tablet) 1 TAB) PO PRN (11:00)
[2019-05-02] MEDS ORDERED: CEFU500T63 PO (11:02)
--- NOTE | 2019-05-02 11:03 | Discharge Inst-Cardiology ---
Discharge Inst-Cardiac Discharge Medications New Medications: Cefuroxime Axetil (Cefuroxime) 500 Mg Tablet 500 MG PO BID for 5 Days, #10 TAB Continued Medications: Alendronate Sodium (Fosamax) 70 Mg Tablet 70 MG PO WED, TAB Atorvastatin Calcium (Atorvastatin Calcium) 40 Mg Tablet 40 MG PO HS, TAB Diltiazem HCl (Diltiazem ER) 120 Mg Capsule.er 120 MG PO DAILY, CAP Hydrocodone/Acetaminophen ([place] 5-325 Tablet) 1 Each Tablet 1 TAB PO Q8H PRN for PAIN-MODERATE (5-7) MDD 10 TABS, TAB Warfarin Sodium (Warfarin Sodium) 1 Mg Tablet 1.5 MG PO DAILY, TAB TAKES 1 & 1/2 TABS DAILY ALONG WITH A 5MG TO EQUAL 6.5MG DAILY Warfarin Sodium (Warfarin Sodium) 5 Mg Tablet 5 MG PO DAILY, TAB TAKES 5 MG ALONG WITH 1 & 1/2 (1MG) TO EQUAL 6.5MG DAILY Patient Instructions Patient Instructions: F/u for wound check at Dr Rock's office on 05/05/19 F/u at Dr Rock's for doctor visit in 6 weeks FELICIA ROCK MD FACP FAC CCDS May 02, 2019 11:03 POS
--- NOTE | 2019-05-02 14:21 | Diagnostic Imaging Report ---
INDICATION: Post catheter. FINDINGS: Battery for the pacemaker overlies the left chest. The leads appear unremarkable. There is no failure, effusion, pneumothorax, or infiltrate. IMPRESSION: No acute-appearing abnormality. Dictated by: Dictated on workstation # [id number]
--- NOTE | 2019-05-02 17:32 | OPERATIVE REPORT ---
DATE OF SERVICE: 05/02/2019 INDICATIONS: The patient is a 63-year-old gentleman who has a dual chamber pacemaker in place for sinus node dysfunction with tachycardia-bradycardia syndrome. The pacemaker has reached elective replacement indicator. Pulse generator change was recommended. Informed consent was obtained. DESCRIPTION OF PROCEDURE: He was brought to the cardiac catheterization laboratory in a fasting state. The left prepectoral area is the site of pacemaker implantation. This was prepared and draped in the usual sterile fashion. Sharp and blunt dissection was used to open the pacemaker pocket and the pacemaker was removed from the pocket and detached from the leads. The leads were tested again. The pocket was thoroughly irrigated with an antibiotic solution. Good hemostasis was assured. A new device was attached to the previous leads. The device removed is [employer] pacemaker with serial #[id number]. The new device is model [id number] pacemaker with serial #[id number]. Good capture and sensing thresholds were obtained. The patient is in atrial fibrillation and the atrial fibrillation waves are measured at 0.9 millivolts through the device. Pacing impedance is 380 ohms. Atrial threshold could not be determined because the patient was in atrial fibrillation. Right ventricular threshold is 0.5 volts at 0.5 milliseconds and R waves are measured at greater than 12 millivolts. Right ventricular pacing impedance is 640 ohms. The new device was placed in the pocket and the pocket was closed in 2 layers using 3.0 Vicryl. The patient tolerated the procedure well. Job ID: [id number] DocumentID: [id number] Dictated Date: 05/02/2019 10:48:35 Airbrush Artist Date: 05/02/2019 17:31:29 Dictated By: FELICIA MACIAS MD, MA, FACP, FACC, MTDD
[2019-05-03] MEDS ORDERED: warFARin 5 MG (COUMADIN) TAB PO SCH (09:00)
[2019-05-03] MEDS ORDERED: NON-FORMULARY MEDICATION 1 EA EA (Diltiazem HCl (Diltiazem ER) 120 MG) PO SCH (09:00)
[2019-05-03] MEDS ORDERED: warFARin 1 MG (COUMADIN) TAB PO SCH (09:00)
== END 2019-05-02 13:35 | disposition home or self-care (01) ==
LOC: CATH 07:24 → SDC 11:22 → CATH 13:35
PROVIDERS: ATTEND Internal Medicine Cardiovascular Disease
DX: I49.5 Sick sinus syndrome (principal); I48.20 Chronic atrial fibrillation, unspecified; E78.5 Hyperlipidemia, unspecified; I25.10 Atherosclerotic heart disease of native coronary artery without angina pectoris; K21.9 Gastro-esophageal reflux disease without esophagitis; F17.290 Nicotine dependence, other tobacco product, uncomplicated; Z88.8 Allergy status to other drugs, medicaments and biological substances; Z79.01 Long term (current) use of anticoagulants; Z79.899 Other long term (current) drug therapy; Z83.3 Family history of diabetes mellitus; Z82.49 Family history of ischemic heart disease and other diseases of the circulatory system; Z95.0 Presence of cardiac pacemaker; Z86.718 Personal history of other venous thrombosis and embolism; Z86.711 Personal history of pulmonary embolism; A69.20 Lyme disease, unspecified
CPT/HCPCS: 33228; 36415; 71045; 80053; 80061; 85027; 85610; 85730; 87081

== ENCOUNTER 2019-05-12 17:25 | Inpatient (IN) | payer OTHER ==
[~2019-05-12] VITALS: Ht 170.2 cm; Wt 79.4 kg
[~2019-05-12 17:25] MED LIST changes: +ALEN70TA2 PO; +CEFU500T63 PO; +DILT120C85 PO; +HYDR-4226 PO
[2019-05-12] MEDS ORDERED: NS IV 1000 ML 1,000 ML IV ONE (17:33)
[2019-05-12 17:41] LABS: BASOPHILS % (AUTO) 0 % (0-10); EOSINOPHILS # (AUTO) 0.1 10^3/uL (0.0-0.3); EOSINOPHILS % (AUTO) 1 % (0-10); HEMATOCRIT 40 % (40-54); HEMOGLOBIN 14.1 G/DL (13.3-17.7); LYMPHOCYTES # (AUTO) 1.8 X 10^3 (1.0-4.0); LYMPHOCYTES % (AUTO) 16 % (12-44); MEAN CORPUSCULAR HEMOGLOBIN 30 PG (25-34); MEAN CORPUSCULAR HGB CONC 35 G/DL (32-36); MEAN CORPUSCULAR VOLUME 86 FL (80-99); MEAN PLATELET VOLUME 8.7 FL (7.4-10.4); MONOCYTES # (AUTO) 2.3 X 10^3 (0.0-1.0); MONOCYTES % (AUTO) 20 % (0-12); NEUTROPHILS % (AUTO) 63 % (42-75); PLATELET COUNT 315 10^3/uL (130-400); RED CELL DISTRIBUTION WIDTH 12.8 % (10.0-14.5); WHITE BLOOD COUNT 11.1 10^3/uL (4.3-11.0)
[2019-05-12] MEDS ORDERED: TETANUS,DIPTH,PERTUSS P/F (BOOSTRIX) 0.5 ML VIAL IM ONE (17:45)
[2019-05-12 17:59] LABS: INR 2.1 (0.8-1.4); PROTHROMBIN TIME PATIENT 24.7 SEC (12.2-14.7)
--- NOTE | 2019-05-12 18:02 | ED Fall/Injury ---
General Chief Complaint: Trauma-Non Activation Stated Complaint: FELL Source: patient (GENIA VINCENT DO) History of Present Illness Date Seen by Provider: May 12, 2019 Time Seen by Provider: 17:27 Initial Comments PT ARRIVES VIA EMS FROM HOME IN [facility]. FAMILY ARRIVES VIA POV. PT FELL WHILE WALKING OUTSIDE LAST NIGHT AROUND 1800--STATES IT WAS WITNESSED BY HIS STATES HIS LEFT KNEE GAVE OUT ( FREQUENT PROBLEM) AND HE FELL, LANDING ON HIS LEFT SIDE ONTO GRAVEL DID HIT HIS HEAD, BUT NO LOSS OF CONSCIOUSNESS C/O LEFT HIP, LEFT GROIN AND LEFT BUTTOCK PAIN C/O LEFT ELBOW PAIN NO NECK OR BACK PAIN NO HEADACHE NO VISION CHANGES NO NAUSEA/VOMITING NO CHEST OR ABDOMINAL PAIN NO PARESTHESIAS OR MOTOR DEFICITS PT HAD LEFT HIP FX IN NOVEMBER, AND HAD ORIF / NAIL PLACED BY DR. YIP. PT STATES AT THAT TIME, HIS HIP POPPED AND BROKE, AND THEN HE FELL. HAS SINCE BEEN DX WITH OSTEOPOROSIS PT IS ON COUMADIN FOR CHRONIC ATRIAL FIBRILLATION, PT QUIT TAKING IT LAST NIGHT AFTER HE FELL LAST TETANUS VACCINE IS UNKNOWN PCP: [facility] WITH [facility] (GENIA VINCENT DO) Allergies and Home Medications Allergies Coded Allergies: cortisone (Unverified Allergy, Mild, 09/18/08) Isosorbide Mononitrate (Unverified Allergy, Unknown, 02/26/11) Home Medications Alendronate Sodium 70 Mg Tablet, 70 MG PO WED, (Reported) Atorvastatin Calcium 40 Mg Tablet, 40 MG PO HS, (Reported) Cefuroxime Axetil 500 Mg Tablet, 500 MG PO BID Prescribed by: FELICIA MACIAS on 05/02/19 1102 Diltiazem HCl 120 Mg Capsule.er, 120 MG PO DAILY, (Reported) Hydrocodone/Acetaminophen 1 Each Tablet, 1 TAB PO Q8H PRN for PAIN-MODERATE (5- 7), (Reported) Warfarin Sodium 1 Mg Tablet, 1.5 MG PO DAILY, (Reported) TAKES 1 & 1/2 TABS DAILY ALONG WITH A 5MG TO EQUAL 6.5MG DAILY Warfarin Sodium 5 Mg Tablet, 5 MG PO DAILY, (Reported) TAKES 5 MG ALONG WITH 1 & 1/2 (1MG) TO EQUAL 6.5MG DAILY Patient Home Medication List Home Medication List Reviewed: Yes (PRINCESS SMITH MD) Review of Systems Review of Systems Constitutional: no symptoms reported Eyes: No Symptoms Reported Ears, Nose, Mouth, Throat: no symptoms reported Respiratory: no symptoms reported Cardiovascular: no symptoms reported Gastrointestinal: no symptoms reported Genitourinary: no symptoms reported Musculoskeletal: see HPI Skin: other (MULTIPLE ABRASIONS AND LACERATION TO LEFT FOREHEAD) Psychiatric/Neurological: No Symptoms Reported; Denies Headache, Denies Numbnes s, Denies Paresthesia, Denies Seizure, Denies Tingling, Denies Weakness (GENIA VINCENT DO) Past Fwhqqwy-Gceacw-Ppfrnp Hx Patient Social History Alcohol Use: Occasionally Uses Number of Drinks Today: AA Alcohol Beverage of Choice: Beer Recreational Drug Use: No Smoking Status: Former Smoker Type Used: Cigars Recent Foreign Travel: No Contact w/Someone Who Travel: No Recent Hopitalizations: No Physical Abuse: No Sexual Abuse: No Mistreated: No Fear: No (GENIA VINCENT DO) Immunizations Up To Date Tetanus Booster (TDap): More than 5yrs PED Vaccines UTD: Yes Date of Pneumonia Vaccine: Mar 20, 2019 (GENIA VINCENT DO) Past Medical History Surgeries: Yes (R SHOULDER SURG; L ANKLE SURG;HERNIA REPAIR 1999;L HIP FX/ORIF 12/2018) Orthopedic, Pacemaker Respiratory: No Cardiac: Yes (PACEMAKER FOR SINUS NODE DYSFUNCTION) Atrial Fibrillation, High Cholesterol, Hypertension Neurological: No Reproductive Disorders: No Genitourinary: No Gastrointestinal: No Musculoskeletal: Yes (LEFT HIP FX/ORIF 12/2018) Osteoporosis, Fractures Endocrine: No HEENT: No Cancer: No Psychosocial: No Integumentary: No Blood Disorders: No Adverse Reaction/Blood Tranf: No (GENIA VINCENT DO) Physical Exam Vital Signs Vital Signs - First Documented 05/12/19 17:27 Temp 36.7 Pulse 100 Resp 19 B/P (MAP) 125/85 (98) Pulse Ox 93 O2 Delivery Room Air (PRINCESS SMITH MD) Vital Signs Capillary Refill : (GENIA VINCENT DO) Height, Weight, BMI Height: 5'7.00" Weight: 170lbs. 15.0oz. 77.519260zu; 23.52 BMI Method:Stated General Appearance: WD/WN, no apparent distress HEENT: PERRL/EOMI (GLASSES) Neck: non-tender, full range of motion, supple, normal inspection Cardiovascular: normal peripheral pulses, regular rate, rhythm, no JVD, no murmur Respiratory: chest non-tender, normal breath sounds, no respiratory distress, no accessory muscle use Gastrointestinal: normal bowel sounds, non tender, soft Back: normal inspection, no CVA tenderness, no vertebral tenderness Extremities: normal capillary refill, other (MARKED TENDERNESS AND MODERATE SWELLING TO LEFT ELBOW. MARKED TENDERNESS TO LEFT HIP/GROIN/BUTTOCKS. DISTAL MOTOR/SENSORY/VASCULAR INTACT. ) Neurologic/Psychiatric: rv detailer II-XII nml as tested, no motor/sensory deficits, alert, normal mood/affect, oriented x 3 Skin: normal color, warm/dry, other (MULTIPLE ABRASIONS TO LEFT ARM AND HAND, WITH SOME AREAS WITH SURROUNDING ERYTHEMA AND SWELLING. HAS 2 CM IRREGULAR LACERATION TO LEFT BROW WITH SURROUNDING ABRASIONS. ) (GENIA VINCENT DO) Hassell Coma Score Best Eye Response: (4) Open Spontaneously Best Verbal Response: (5) Oriented Best Motor Response: (6) Obeys Commands Hassell Total: 15 (GENIA VINCENT DO) Procedures/Interventions Splinting and Joint Reduction : Pre-Proc Neuro Vasc Exam: normal Post-Proc Neuro Vasc Exam: normal Pre-Procedure NV Exam: Yes Progress A long-arm splint was applied to the left elbow. Patient remained neurovascularly intact. Antibiotic ointment was applied to the skin tears prior to wrapping the arm with soft roll. Ortho-Glass was used to fashion the splint. After splinting the arm was placed in a sling. I have advised Dr. Abreu and Dr. Farah to take down the splint and evaluate the skin tomorrow. Arm Sling: Large Splint Application: Long Arm (PRINCESS SMITH MD) Progress/Results/Core Measures Results/Orders Lab Results Laboratory Tests Test 05/12/19 17:34 Range/Units White Blood Count 11.1 H 4.3-11.0 10^3/uL Red Blood Count 4.69 4.35-5.85 10^6/uL Hemoglobin 14.1 13.3-17.7 G/DL Hematocrit 40 40-54 % Mean Corpuscular Volume 86 80-99 FL Mean Corpuscular Hemoglobin 30 25-34 PG Mean Corpuscular Hemoglobin Concent 35 32-36 G/DL Red Cell Distribution Width 12.8 10.0-14.5 % Platelet Count 315 130-400 10^3/uL Mean Platelet Volume 8.7 7.4-10.4 FL Neutrophils (%) (Auto) 63 42-75 % Lymphocytes (%) (Auto) 16 12-44 % Monocytes (%) (Auto) 20 H 0-12 % Eosinophils (%) (Auto) 1 0-10 % Basophils (%) (Auto) 0 0-10 % Neutrophils # (Auto) 7.0 1.8-7.8 X 10^3 Lymphocytes # (Auto) 1.8 1.0-4.0 X 10^3 Monocytes # (Auto) 2.3 H 0.0-1.0 X 10^3 Eosinophils # (Auto) 0.1 0.0-0.3 10^3/uL Basophils # (Auto) 0.0 0.0-0.1 10^3/uL Neutrophils % (Manual) 70 % Lymphocytes % (Manual) 15 % Monocytes % (Manual) 15 % Eosinophils % (Manual) 0 % Basophils % (Manual) 0 % Band Neutrophils 0 % Blood Morphology Comment NORMAL Prothrombin Time 24.7 H 12.2-14.7 SEC INR Comment 2.1 H 0.8-1.4 Activated Partial Thromboplast Time 43 H 24-35 SEC Sodium Level 139 135-145 MMOL/L Potassium Level 4.0 3.6-5.0 MMOL/L Chloride Level 104 98-107 MMOL/L Carbon Dioxide Level 23 21-32 MMOL/L Anion Gap 12 5-14 MMOL/L Blood Urea Nitrogen 9 7-18 MG/DL Creatinine 0.71 0.60-1.30 MG/DL Estimat Glomerular Filtration Rate > 60 BUN/Creatinine Ratio 13 Glucose Level 86 70-105 MG/DL Calcium Level 8.1 L 8.5-10.1 MG/DL Corrected Calcium 8.2 L 8.5-10.1 MG/DL Magnesium Level 2.0 1.6-2.4 MG/DL Total Bilirubin 0.6 0.1-1.0 MG/DL Aspartate Amino Transf (AST/SGOT) 30 5-34 U/L Alanine Aminotransferase (ALT/SGPT) 38 0-55 U/L Alkaline Phosphatase 93 40-136 U/L Total Creatine Kinase 160 30-200 U/L Creatine Kinase MB 1.6 <6.6 NG/ML Myoglobin 57.2 10.0-92.0 NG/ML Total Protein 6.5 6.4-8.2 GM/DL Albumin 3.9 3.2-4.5 GM/DL Serum Alcohol < 10 <10 MG/DL (PRINCESS SMITH MD) My Orders Orders - PRINCESS SMITH MD Orphenadrine Injection (Norflex Injectio (05/12/19 18:30) Elbow, Left, 2 Views (05/12/19 19:16) Ceftriaxone For Iv Use (Rocephin For I (05/12/19 19:30) (PRINCESS SMITH MD) Medications Given in ED Current Medications Medications Dose Ordered Sig/Lisa Route Start Time Stop Time Status Last Admin Dose Admin Diphtheria/ Tetanus/Acell Pertussis 0.5 ml ONCE ONCE IM 05/12/19 17:45 05/12/19 17:46 DC 05/12/19 17:41 0.5 ML Orphenadrine Citrate 60 mg ONCE ONCE IV 05/12/19 18:30 05/12/19 18:31 DC 05/12/19 18:47 60 MG Sodium Chloride 1,000 ml @ 0 mls/hr Q0M ONCE IV 05/12/19 17:33 05/12/19 17:35 DC 05/12/19 17:41 0 MLS/HR (PRINCESS SMITH MD) Vital Signs/I&O 05/12/19 17:27 Temp 36.7 Pulse 100 Resp 19 B/P (MAP) 125/85 (98) Pulse Ox 93 O2 Delivery Room Air (PRINCESS SMITH MD) Progress Progress Note : Progress Note 1810--CARE TURNED OVER TO DR. SMITH, ALL STUDIES PENDING (GENIA VINCENT DO) Progress Note : Time: 19:50 Progress Note Care of this patient was assumed from Dr. Vincent at shift change. Imaging studies have been reviewed. Patient has a displaced left elbow fracture and a left superior pubic rami fracture. The radiologist report stated the pelvic fracture appeared chronic, but the patient has significant tenderness over this area leading me to believe this is acute. Also patient did not have any prior history of pelvic fracture. Patient complained of muscle spasms and was given Norflex. History was reviewed with Dr. Abreu who also reviewed the x-rays. He believes this injury can be managed at [facility]. Patient's INR is greater than 2.0 at this time and needs to come down before he can have surgery. Dr. Abreu recommended placing a posterior splint and admitting for surgery at a later date, possibly tomorrow or Wednesday pending INR results. I have recommended that the patient be admitted because of his difficulty with weightbearing and ambulation in combination with the elbow injury. I believe will be very difficult for him to manage safely at home especially given a fall risk and elevated INR on warfarin use. Patient and his are agreeable to admission. Case was reviewed with Dr. Gibbs who agrees to be the attending physician. Dr. Abreu requested a high quality lateral elbow view. This is being performed now. We will then apply splint. Rocephin is being administered for possible early infection of skin wounds. Boostrix tetanus immunization was administered. (PRINCESS SMITH MD) Diagnostic Imaging Diagonstic Imaging: Xray Plain Films/CT/US/NM/MRI: elbow Comments Left elbow reviewed by me and report reviewed. See report below: NAME: LINSEY CASANOVA [facility] REC#: [id number] PT STATUS: REG ER : 1955 PHYSICIAN: GENIA VINCENT DO ADMIT DATE: 05/12/19/ER Draft Date of Exam:05/12/19 ELBOW, LEFT, 3 VIEWS INDICATION: Left elbow injury, trauma. COMPARISON: None. FINDINGS: Four views of the left elbow demonstrate displaced, distracted olecranon process fracture. There is intra-articular involvement. The visualized radial head and distal humerus are intact. IMPRESSION: Olecranon process fracture with intra-articular involvement. Dictated on workstation # [id number] Dict: 05/12/191824 Trans: 05/12/191828 AS6 [id number] Interpreted by: JOE SALGADO Diagonstic Imaging: Xray Plain Films/CT/US/NM/MRI: chest Comments Chest x-ray viewed by me and report reviewed. See report below: NAME: LINSEY CASANOVA [facility] REC#: [id number] PT STATUS: REG ER : 1955 PHYSICIAN: GENIA VINCENT DO ADMIT DATE: 05/12/19/ER Draft Date of Exam:05/12/19 CHEST 1 VIEW, AP/PA ONLY INDICATION: Fall, chest pain, cardiac pacemaker COMPARISON: 05/02/2019 FINDINGS: Single view of the chest demonstrates clear lungs bilaterally. The heart is prominent but stable. There is no pneumothorax. No obvious acute osseous abnormality seen. Pacemaker is in good position. IMPRESSION: No acute cardiopulmonary findings. Dictated on workstation # [id number] Dict: 05/12/191827 Trans: 05/12/19 1835 SOURAV [id number] Interpreted by: JOE SALGADOnstic Imaging: Xray Plain Films/CT/US/NM/MRI: leg (left femur) Comments Left femur x-ray viewed by me and report reviewed. See report below: [id number] PT STATUS: REG ER : 1955 PHYSICIAN: GENIA VINCENT DO ADMIT DATE: 05/12/19/ER Draft Date of Exam:05/12/19 FEMUR, LEFT, 2 VIEWS INDICATION: Fall, left femur injury, history of fracture, arthroplasty COMPARISON: None FINDINGS: Four views of the left femur demonstrate intact IM carmela and dynamic pin in the left hip. No periprosthetic fracture seen. There is partial visualization of a orthopedic plate and screws in the proximal tibia. There is no osseous lesion. IMPRESSION: No acute fracture or dislocation Dictated on workstation # [id number] Dict: 05/12/19 182 Trans: 05/12/19 183 SOURAV [id number] Interpreted by: JOE SALGADOnstic Imaging: Xray Plain Films/CT/US/NM/MRI: pelvis, hip Comments X-ray of left hip and pelvis viewed by me and report reviewed. See report be low: [facility] [id number] PT STATUS: REG ER : 1955 PHYSICIAN: GENIA VINCENT DO ADMIT DATE: 05/12/19/ER Draft Date of Exam:05/12/19 PELVIS WITH LEFT HIP 2-3 VIEWS INDICATION: Fall, pelvic pain COMPARISON: None FINDINGS: Single view of the pelvis and two views of the left hip demonstrate nondisplaced likely chronic left superior pubic ramus fracture. Otherwise, bilateral hips and pelvis are intact. The dynamic pin and IM carmela in the left hip are unremarkable. IMPRESSION: Likely chronic left superior pubic ramus fracture. No hip fracture or dislocation identified Dictated on workstation # [id number] Dict: 05/12/191826 Trans: 05/12/19 1835 [facility] [id number] Interpreted by: JOE SALGADO Imaging: CT Plain Films/CT/US/NM/MRI: facial bones, c-spine, head Comments CT viewed by me and report reviewed. See report below: NAME: LINSEY CASANOVA [place] [facility] REC#: [id number] PT STATUS: REG ER : 1955 PHYSICIAN: GENIA VINCENT DO ADMIT DATE: 05/12/19/ER Draft Date of Exam:05/12/19 CT HEAD/FACE/CERVICAL WO PROCEDURE: CT head, face, and cervical spine without contrast. TECHNIQUE: Multiple contiguous axial images were obtained through the head, neck, and facial bones without the use of intravenous contrast. Sagittal and coronal reformations through the cervical spine and facial bones were also performed. Auto Exposure Controls were utilized during the CT exam to meet ALARA standards for radiation dose reduction. INDICATION: Fell, face, head, and neck pain. FINDINGS: CT head: There is no mass, shift to the midline, or hemorrhage to suggest an acute intracranial abnormality. The ventricles are not abnormally dilated and stable in size when compared to the prior exam of 11/26/2018. The bone windows show no evidence for a skull fracture. There does appear to be soft tissue edema over the right frontal bone, however. The orbits are symmetrical and within normal limits. The sinuses are generally clear. IMPRESSION: There is soft tissue edema over the right frontal bone but there is no evidence for a skull fracture. There is no sign of an acute intracranial abnormality either. CT facial bones: As noted on the CT head exam performed in conjunction with this study, there is soft tissue edema over the right frontal bone. There is no sign of a skull fracture in this area. The nasal bone, the orbital rims, the zygomatic arches, and mandible are intact. The orbits are symmetrical and within normal limits. The sinuses are generally clear. IMPRESSION: There is no evidence for an acute facial bone fracture. CT cervical spine: The reconstructed parasagittal images show the vertebral body heights and alignment to be generally within normal limits and similar to the prior exam of 11/26/2018. There is no fracture or acute bony abnormality identified. There is no sign of retropharyngeal edema. The thyroid gland is generally unremarkable. The lung apices are clear. IMPRESSION: There is no evidence for an acute bony abnormality of the cervical spine. Dictated on workstation # [id number] Dict: 05/12/191814 Trans: 05/12/191826 AS6 [id number] Interpreted by: HERNAN SANTAMARIA MD Diagonstic Imaging: CT Plain Films/CT/US/NM/MRI: other (second lumbar spine) Comments CT images viewed by me and report reviewed. See report below: NAME: LINSEY CASANOVA [facility] REC#: [id number] PT STATUS: REG ER : 1955 PHYSICIAN: GENIA VINCENT DO ADMIT DATE: 05/12/19/ER Draft Date of Exam:05/12/19 CT THORACIC/LUMBAR SPINE WO PROCEDURE: CT thoracic and lumbar spine without contrast. TECHNIQUE: Multiple contiguous axial images were obtained through the thoracic and lumbar spine without the use of intravenous contrast. Sagittal and coronal reformations were then performed. INDICATION: Fall, mid and lower back pain. COMPARISON: None. FINDINGS: There is some minimal height loss involving the superior endplates of T7 and T12. These are likely chronic compression fractures. However, please correlate with point tenderness. If the patient is tender in these regions, consider bone scan. There is no traumatic malalignment. There is no osseous lesion. Mild degenerative changes are seen throughout. There is no paraspinous mass. The SI joints are symmetric. There is dependent atelectasis in both lung bases. IMPRESSION: 1. Likely chronic superior endplate compression fractures of T7 and T12. If the patient is tender in these regions, consider bone scan imaging since the patient does have a pacemaker. 2. Mild degenerative changes. No traumatic malalignment identified. Dictated on workstation # [id number] Dict: 05/12/19 1806 Trans: 05/12/19 1811 AS6 [id number] Interpreted by: JOE SALGADO (PRINCESS SMITH MD) Departure Communication (Admissions) Time/Spoke to Admitting Phy: 19:20 Dr. Farah Time/Spoke to Consulting Phy: 18:55 Dr. Abreu (PRINCESS SMITH MD) Impression Primary Impression: Left elbow fracture Qualified Codes: S42.402A - Unspecified fracture of lower end of left humerus, initial encounter for closed fracture Additional Impressions: Status post fall Warfarin anticoagulation History of atrial fibrillation Fracture of left pelvis Qualified Codes: S32.512A - Fracture of superior rim of left pubis, initial encounter for closed fracture Multiple skin tears Disposition: ADMITTED INPATIENT Condition: Improved Admissions Decision to Admit Reason: Admit from ER (Trauma) Decision to Admit/Date: May 12, 2019 Time/Decision to Admit Time: 18:30 (PRINCESS SMITH MD) Departure-Patient Inst. Referrals: [facility] (PCP) Primary Care Physician MARY CURRY APRN (Family) Primary Care Physician GENIA VINCENT DO May 12, 2019 18:02 PRINCESS SMITH MD May 12, 2019 18:38
[2019-05-12 18:07] LABS: ALANINE AMINOTRANSFERASE 38 U/L (0-55); ALBUMIN 3.9 GM/DL (3.2-4.5); ALKALINE PHOSPHATASE 93 U/L (40-136); BILIRUBIN,TOTAL 0.6 MG/DL (0.1-1.0); BUN/CREATININE RATIO 13; CALCIUM 8.1 MG/DL (8.5-10.1); CARBON DIOXIDE 23 MMOL/L (21-32); CHLORIDE 104 MMOL/L (98-107); CREATINE KINASE 160 U/L (30-200); CREATININE SERUM 0.71 MG/DL (0.60-1.30); GFR ESTIMATED > 60; GLUCOSE 86 MG/DL (70-105); SODIUM 139 MMOL/L (135-145); TOTAL PROTEIN 6.5 GM/DL (6.4-8.2)
--- NOTE | 2019-05-12 18:12 | Diagnostic Imaging Report ---
PROCEDURE: CT thoracic and lumbar spine without contrast. TECHNIQUE: Multiple contiguous axial images were obtained through the thoracic and lumbar spine without the use of intravenous contrast. Sagittal and coronal reformations were then performed. INDICATION: Fall, mid and lower back pain. COMPARISON: None. FINDINGS: There is some minimal height loss involving the superior endplates of T7 and T12. These are likely chronic compression fractures. However, please correlate with point tenderness. If the patient is tender in these regions, consider bone scan. There is no traumatic malalignment. There is no osseous lesion. Mild degenerative changes are seen throughout. There is no paraspinous mass. The SI joints are symmetric. There is dependent atelectasis in both lung bases. IMPRESSION: 1. Likely chronic superior endplate compression fractures of T7 and T12. If the patient is tender in these regions, consider bone scan imaging since the patient does have a pacemaker. 2. Mild degenerative changes. No traumatic malalignment identified. Dictated by: Dictated on workstation # [id number]
[2019-05-12 18:14] LABS: BAND NEUTROPHILS 0 %; BASOPHILS % (MANUAL) 0 %; CREATINE KINASE MB 1.6 NG/ML (<6.6); EOSINOPHILS % (MANUAL) 0 %; LYMPHOCYTES % (MANUAL) 15 %; MONOCYTES % (MANUAL) 15 %; NEUTROPHILS % (MANUAL) 70 %; RBC MORPH NORMAL
--- NOTE | 2019-05-12 18:27 | Diagnostic Imaging Report ---
PROCEDURE: CT head, face, and cervical spine without contrast. TECHNIQUE: Multiple contiguous axial images were obtained through the head, neck, and facial bones without the use of intravenous contrast. Sagittal and coronal reformations through the cervical spine and facial bones were also performed. Auto Exposure Controls were utilized during the CT exam to meet ALARA standards for radiation dose reduction. INDICATION: Fell, face, head, and neck pain. FINDINGS: CT head: There is no mass, shift to the midline, or hemorrhage to suggest an acute intracranial abnormality. The ventricles are not abnormally dilated and stable in size when compared to the prior exam of 11/26/2018. The bone windows show no evidence for a skull fracture. There does appear to be soft tissue edema over the right frontal bone, however. The orbits are symmetrical and within normal limits. The sinuses are generally clear. IMPRESSION: There is soft tissue edema over the right frontal bone but there is no evidence for a skull fracture. There is no sign of an acute intracranial abnormality either. CT facial bones: As noted on the CT head exam performed in conjunction with this study, there is soft tissue edema over the right frontal bone. There is no sign of a skull fracture in this area. The nasal bone, the orbital rims, the zygomatic arches, and mandible are intact. The orbits are symmetrical and within normal limits. The sinuses are generally clear. IMPRESSION: There is no evidence for an acute facial bone fracture. CT cervical spine: The reconstructed parasagittal images show the vertebral body heights and alignment to be generally within normal limits and similar to the prior exam of 11/26/2018. There is no fracture or acute bony abnormality identified. There is no sign of retropharyngeal edema. The thyroid gland is generally unremarkable. The lung apices are clear. IMPRESSION: There is no evidence for an acute bony abnormality of the cervical spine. Dictated by: Dictated on workstation # [id number]
--- NOTE | 2019-05-12 18:29 | Diagnostic Imaging Report ---
INDICATION: Left elbow injury, trauma. COMPARISON: None. FINDINGS: Four views of the left elbow demonstrate displaced, distracted olecranon process fracture. There is intra-articular involvement. The visualized radial head and distal humerus are intact. IMPRESSION: Olecranon process fracture with intra-articular involvement. Dictated by: Dictated on workstation # [id number]
[2019-05-12] MEDS ORDERED: ORPHENADRINE 60 MG/2 ML (NORFLEX) AMP IV ONE (18:30)
--- NOTE | 2019-05-12 18:30 | Diagnostic Imaging Report ---
INDICATION: Fall, chest pain, cardiac pacemaker COMPARISON: 05/02/2019 FINDINGS: Single view of the chest demonstrates clear lungs bilaterally. The heart is prominent but stable. There is no pneumothorax. No obvious acute osseous abnormality seen. Pacemaker is in good position. IMPRESSION: No acute cardiopulmonary findings. Dictated by: Dictated on workstation # [id number]
--- NOTE | 2019-05-12 18:33 | Diagnostic Imaging Report ---
INDICATION: Fall, left femur injury, history of fracture, arthroplasty COMPARISON: None FINDINGS: Four views of the left femur demonstrate intact IM carmela and dynamic pin in the left hip. No periprosthetic fracture seen. There is partial visualization of a orthopedic plate and screws in the proximal tibia. There is no osseous lesion. IMPRESSION: No acute fracture or dislocation Dictated by: Dictated on workstation # [id number]
--- NOTE | 2019-05-12 18:36 | Diagnostic Imaging Report ---
INDICATION: Fall, pelvic pain COMPARISON: None FINDINGS: Single view of the pelvis and two views of the left hip demonstrate nondisplaced likely chronic left superior pubic ramus fracture. Otherwise, bilateral hips and pelvis are intact. The dynamic pin and IM carmela in the left hip are unremarkable. IMPRESSION: Likely chronic left superior pubic ramus fracture. No hip fracture or dislocation identified Dictated by: Dictated on workstation # [id number]
[2019-05-12] MEDS ORDERED: cefTRIAXone FOR IV USE 1,000 MG in WATER (STERILE) FOR INJECTION 10 ML IV ONE (19:30)
[2019-05-12] MEDS ORDERED: fentaNYL INJECTION 100 MCG/2 ML AMP ONE (19:51)
[2019-05-12] MEDS ORDERED: fentaNYL INJECTION 100 MCG/2 ML AMP IVP ONE (20:00)
[2019-05-12 20:04] LABS: BILIRUBIN,URINE NEGATIVE (NEGATIVE); CLARITY,URINE CLEAR; COLOR,URINE YELLOW; GLUCOSE, URINE (UA) NEGATIVE (NEGATIVE); KETONES,URINE NEGATIVE (NEGATIVE); LEUKOCYTE ESTERASE ,URINE NEGATIVE (NEGATIVE); NITRITE,URINE NEGATIVE (NEGATIVE); PROTEIN,URINE NEGATIVE (NEGATIVE)
[2019-05-12 20:12] LABS: BACTERIA,URINE NEGATIVE /HPF
--- NOTE | 2019-05-12 20:16 | Diagnostic Imaging Report ---
INDICATION: Left elbow injury COMPARISON: 05/12/2019 at 6:15 PM FINDINGS: Single lateral view of the left elbow demonstrates unchanged displaced olecranon fracture with intra-articular involvement. IMPRESSION: Unchanged olecranon fracture. Dictated by: Dictated on workstation # [id number]
[2019-05-12 20:18] LABS: AMPHETAMINE SCREEN, URINE NEGATIVE (NEGATIVE); BARBITURATE SCREEN URINE NEGATIVE (NEGATIVE); BENZODIAZEPINES SCREEN URINE NEGATIVE (NEGATIVE); CANNABINOID SCREEN, URINE NEGATIVE (NEGATIVE); COCAINE SCREEN URINE NEGATIVE (NEGATIVE); METHADONE STAT NEGATIVE (NEGATIVE); METHAMPHETAMINE SCREEN URINE S NEGATIVE (NEGATIVE); OPIATE SCREEN URINE POSITIVE (NEGATIVE); OXYCODONE STAT NEGATIVE (NEGATIVE); PROPOXYPHENE STAT NEGATIVE (NEGATIVE); TRICYCLIC ANTIDEPRESSANTS SCRE NEGATIVE (NEGATIVE)
[2019-05-12 21:15] VITALS: BP 115/75
--- NOTE | 2019-05-12 21:20 | NUR ---
LINSEY CASANOVA admitted to room 412-1, with an admitting diagnosis of LEFT ELBOW FRACTURE; LEFT PELVIS FRACTURE, on 05/12/19 from ED via HOSPITAL BED, accompanied by staff and family.LINSEY CASANOVA introduced to surroundings, call light, bed controls, phone, TV, temperature control, lights, meal times, smoking policy, visitor policy, side rail policy, bathrooms and showers. Patient Rights given to patient in the handbook. LINSEY CASANOVA verbalizes understanding that [facility] is not responsible for the loss or damage to any personal effects or valuables that are kept in the patients posession during their hospitalization.
[2019-05-12] MEDS ORDERED: ONDANSETRON 4 MG/2 ML (SDV) Z0FRAN IV PRN (22:30)
[2019-05-12] MEDS: fentaNYL INJECTION 100 MCG/2 ML AMP IV PRN (22:48)
[2019-05-13] VITALS (7 sets, daily range): BP systolic 102–132; BP diastolic 62–81
[2019-05-13] MEDS: CYCLOBENZAPRINE 10 MG (FLEXERIL) TAB PO PRN ×2 (00:01→17:24)
[2019-05-13] MEDS: fentaNYL INJECTION 100 MCG/2 ML AMP IV PRN ×4 (04:25→14:57)
[2019-05-13 05:37] LABS: BASOPHILS % (AUTO) 0 % (0-10); EOSINOPHILS % (AUTO) 1 % (0-10); HEMATOCRIT 38 % (40-54); HEMOGLOBIN 12.9 G/DL (13.3-17.7); LYMPHOCYTES # (AUTO) 1.4 X 10^3 (1.0-4.0); LYMPHOCYTES % (AUTO) 16 % (12-44); MEAN CORPUSCULAR HEMOGLOBIN 30 PG (25-34); MEAN CORPUSCULAR HGB CONC 34 G/DL (32-36); MEAN CORPUSCULAR VOLUME 88 FL (80-99); MEAN PLATELET VOLUME 9.4 FL (7.4-10.4); MONOCYTES # (AUTO) 1.9 X 10^3 (0.0-1.0); MONOCYTES % (AUTO) 22 % (0-12); NEUTROPHILS # (AUTO) 5.4 X 10^3 (1.8-7.8); NEUTROPHILS % (AUTO) 62 % (42-75); PLATELET COUNT 265 10^3/uL (130-400); RED CELL DISTRIBUTION WIDTH 12.9 % (10.0-14.5); WHITE BLOOD COUNT 8.7 10^3/uL (4.3-11.0)
[2019-05-13 05:48] LABS: INR 1.8 (0.8-1.4); PROTHROMBIN TIME PATIENT 22.1 SEC (12.2-14.7)
[2019-05-13 05:57] LABS: BUN/CREATININE RATIO 11; CARBON DIOXIDE 22 MMOL/L (21-32); CHLORIDE 105 MMOL/L (98-107); GFR ESTIMATED > 60; GLUCOSE 87 MG/DL (70-105); POTASSIUM 3.7 MMOL/L (3.6-5.0); SODIUM 138 MMOL/L (135-145)
[2019-05-13] MEDS: CEPHALEXIN 250 MG (KEFLEX) CAP PO SCH ×3 (08:03→21:01)
[2019-05-13] MEDS: HYDROcodone/APAP 5 MG/325 MG (LORTAB) TAB PO PRN ×3 (08:03→21:01)
[2019-05-13] MEDS: DILTIAZEM 120 MG (CARDIZEM CD) CAP PO SCH (08:03)
--- NOTE | 2019-05-13 10:54 | Consultation - Ortho ---
Consult - Ortho Subjective Date of Exam 05/13/19 Chief Complaint Left elbow and left hip pain since fall on 05/11 HPI/Events since last exam Mr. Wheeler is a 63-year-old white male was admitted through the emergency room. He fell on 05/11 when his knee gave out. He stated he landed on his left side. He came in in the emergency room yesterday evening due to continued pain. X- rays showed a displaced olecranon fracture left elbow and a superior pubic rami fracture on the left. He's had a previous gamma nail of his left hip after a fall in November. He is doing well from his hip point of view until his fall. This pain in his hip his anterior pelvis to posterior pelvis. He is right hand dominant. He denies any other injury. He's had no injury to his back and is complaining of no back pain. His left arm was splinted. He did have some abrasions which showed some redness so he was started on antibiotics for this. Medical, Surgical History Reviewed and no additions or changes Social History Reviewed and no additions or changes Family History Reviewed and no additions or changes Review of Systems Reviewed and no additions or changes Allergies: Coded Allergies: cortisone (Unverified Allergy, Mild, 09/18/08) Isosorbide Mononitrate (Unverified Allergy, Unknown, 02/26/11) Home Meds Active Scripts Cefuroxime Axetil (Cefuroxime) 500 Mg Tablet, 500 MG PO BID for 5 Days, #10 TAB Prov:FELICIA MACIAS MD FACP FAC CCDS 05/02/19 Reported Medications Diltiazem HCl (Diltiazem ER) 120 Mg Capsule.er, 120 MG PO DAILY, CAP 05/02/19 Hydrocodone/Acetaminophen ([place] 5-325 Tablet) 1 Each Tablet, 1 TAB PO Q8H PRN for PAIN-MODERATE (5-7) MDD 10 TABS, TAB 05/02/19 Alendronate Sodium (Fosamax) 70 Mg Tablet, 70 MG PO WED, TAB 05/02/19 Warfarin Sodium (Warfarin Sodium) 5 Mg Tablet, 5 MG PO DAILY, TAB TAKES 5 MG ALONG WITH 1 & 1/2 (1MG) TO EQUAL 6.5MG DAILY 11/28/18 Warfarin Sodium (Warfarin Sodium) 1 Mg Tablet, 1.5 MG PO DAILY, TAB TAKES 1 & 1/2 TABS DAILY ALONG WITH A 5MG TO EQUAL 6.5MG DAILY 11/28/18 Atorvastatin Calcium (Atorvastatin Calcium) 40 Mg Tablet, 40 MG PO HS, TAB 11/28/18 Objective Exam Constitutional: [] HEENT: [] Neck: [] No pain with palpation or range of motion Cardiovascular: [] Respiratory: [] Gastrointestinal: [] Genitourinary: [] Skin: [] Back/Spine: [] No pain with palpation in the thoracic or lumbar spine. He does have pain over the left sacroiliac joint Extremities: [] Pain anterior pelvis left. No pain over the hip. Gentle range of motion hip causes pain over the anterior pelvis on the left. No pain left knee or ankle. He has normal sensation with good capillary refill and good pulses. Good range of motion hip and knee and ankle on the right without pain. Normal sensation with good cap refill and good pulses Right upper extremityfull motion without pain. No deformity. Neurovascularly intact with normal sensation to the fingers and thumb with good cap refill and good radial pulse Left upper extremity is splinted. The splint was removed as well as the cast batting. He has some abrasions over the posterior aspect of the elbow and proximal ulna. There is a little bit of erythema but no bleeding or drainage. He has pain and swelling over the olecranon. Any motion of the elbow causes pain. No pain at the wrist. Normal sensation of the fingers and thumb with good capillary refill and good radial pulse Neurologic: [] Psychiatric: [] Hematologic/lymphatic/immunologic: [] Vital Signs Vital Signs Date Time Temp Pulse Resp B/P (MAP) Pulse Ox O2 Delivery O2 Flow Rate FiO2 05/13/19 08:16 35.9 108 20 126/81 (96) 94 Room Air 05/13/19 08:00 94 Room Air 05/13/19 07:00 97 05/13/19 04:10 36.5 96 20 108/75 (86) 94 Room Air 05/13/19 01:00 110 05/13/19 00:20 36.8 90 24 132/81 (98) 97 Room Air 05/12/19 22:18 108 05/12/19 21:20 Room Air 05/12/19 21:15 36.8 109 18 115/75 97 Room Air 05/12/19 21:09 85 20 111/77 97 Room Air 05/12/19 17:27 36.7 100 19 125/85 (98) 93 Room Air I & O 05/13/19 07:00 Intake Total 1860 ml Output Total 1000 ml Balance 860 ml Lab Results Laboratory Tests 05/12/19 17:34: White Blood Count 11.1H, Red Blood Count 4.69, Hemoglobin 14.1, Hematocrit 40, Mean Corpuscular Volume 86, Mean Corpuscular Hemoglobin 30, Mean Corpuscular Hemoglobin Concent 35, Red Cell Distribution Width 12.8, Platelet Count 315, Mean Platelet Volume 8.7, Neutrophils (%) (Auto) 63, Lymphocytes (%) (Auto) 16, Monocytes (%) (Auto) 20H, Eosinophils (%) (Auto) 1, Basophils (%) (Auto) 0, Neutrophils # (Auto) 7.0, Lymphocytes # (Auto) 1.8, Monocytes # (Auto) 2.3H, Eosinophils # (Auto) 0.1, Basophils # (Auto) 0.0, Neutrophils % (Manual) 70, Lymphocytes % (Manual) 15, Monocytes % (Manual) 15, Eosinophils % (Manual) 0, Basophils % (Manual) 0, Band Neutrophils 0, Blood Morphology Comment NORMAL, Prothrombin Time 24.7H, INR Comment 2.1H, Activated Partial Thromboplast Time 43H, Sodium Level 139, Potassium Level 4.0, Chloride Level 104, Carbon Dioxide Level 23, Anion Gap 12, Blood Urea Nitrogen 9, Creatinine 0.71, Estimat Glomerular Filtration Rate > 60, BUN/Creatinine Ratio 13, Glucose Level 86, Calcium Level 8.1L, Corrected Calcium 8.2L, Magnesium Level 2.0, Total Bilirubin 0.6, Aspartate Amino Transf (AST/SGOT) 30, Alanine Aminotransferase (ALT/SGPT) 38, Alkaline Phosphatase 93, Total Creatine Kinase 160, Creatine Kinase MB 1.6, Myoglobin 57.2, Total Protein 6.5, Albumin 3.9, Serum Alcohol < 10 05/12/19 19:59: Urine Color YELLOW, Urine Clarity CLEAR, Urine pH 7.0, Urine Specific [place] 1.015L, Urine Protein NEGATIVE, Urine Glucose (UA) NEGATIVE, Urine Ketones NEGATIVE, Urine Nitrite NEGATIVE, Urine Bilirubin NEGATIVE, Urine Urobilinogen 0.2, Urine Leukocyte Esterase NEGATIVE, Urine RBC (Auto) TRACE-I, Urine RBC 2-5H , Urine WBC NONE, Urine Crystals NONE, Urine Bacteria NEGATIVE, Urine Casts NONE, Urine Mucus NEGATIVE, Urine Culture Indicated NO, Urine Opiates Screen POSITIVEH, Urine Oxycodone Screen NEGATIVE, Urine Methadone Screen NEGATIVE, Urine Propoxyphene Screen NEGATIVE, Urine Barbiturates Screen NEGATIVE, Ur Tricyclic Antidepressants Screen NEGATIVE, Urine Phencyclidine Screen NEGATIVE, Urine Amphetamines Screen NEGATIVE, Urine Methamphetamines Screen NEGATIVE, Urine Benzodiazepines Screen NEGATIVE, Urine Cocaine Screen NEGATIVE, Urine Cannabinoids Screen NEGATIVE 05/13/19 05:02: White Blood Count 8.7, Red Blood Count 4.27L, Hemoglobin 12.9L, Hematocrit 38L, Mean Corpuscular Volume 88, Mean Corpuscular Hemoglobin 30, Mean Corpuscular Hemoglobin Concent 34, Red Cell Distribution Width 12.9, Platelet Count 265, Mean Platelet Volume 9.4, Neutrophils (%) (Auto) 62, Lymphocytes (%) (Auto) 16, Monocytes (%) (Auto) 22H, Eosinophils (%) (Auto) 1, Basophils (%) (Auto) 0, Neutrophils # (Auto) 5.4, Lymphocytes # (Auto) 1.4, Monocytes # (Auto) 1.9H, Eosinophils # (Auto) 0.0, Basophils # (Auto) 0.0, Prothrombin Time 22.1H, INR Comment 1.8H, Sodium Level 138, Potassium Level 3.7, Chloride Level 105, Carbon Dioxide Level 22, Anion Gap 11, Blood Urea Nitrogen 8, Creatinine 0.70, Estimat Glomerular Filtration Rate > 60, BUN/Creatinine Ratio 11, Glucose Level 87, Calcium Level 8.0L Imaging I reviewed x-rays of his elbow which shows a displaced olecranon fracture. He also has some underlying degenerative changes. No dislocation of the elbow. No radial head fracture. X-rays of the pelvis shows a superior pubic rami fracture. He also has a previous gamma nail for a left hip fracture done in November Assessment and Plan Assessment Olecranon fracture left elbow, superior pubic rami fracture left Problem List Displaced olecranon fracture left elbow Superior pubic rami fracture left Plan The above was discussed with the patient his family. He is on Coumadin for A. fib. His INR today was 1.8. Recommended surgical treatment of the displaced olecranon fracture I discussed the procedure risk complications. I would still like to see his INR down low bit lower before surgery to avoid hematoma and wound problems. Also this will give us a little bit more time for the abrasions to calm down since there directly where I will be making my incision. The meantime we can get him bed to chair and he can have a regular diet. Plan on surgery on Wednesday. Final Diagonsis Displaced olecranon fracture left elbow Status post fixation of left hip fracture Nondisplaced superior pubic rami fracture left Level of the visit: Level 3 MARSHALL ARRIOLA MD May 13, 2019 10:54
--- NOTE | 2019-05-13 12:25 | History & Physical-Hospitalist ---
History of Present Illness HPI/Chief Complaint this is an unfortunate 63-year-old white male who was walking in his yard with his when he fell for an unknown reason striking his left elbow, left hip, and left side of his head. He believes his knee just gave way.He sustained a left pubic rami fracture and left displaced olecranon fracture. He has been on Coumadin for his chronic atrial fibrillation and his INR remains at 1.8 this am.. The patient was seen this morning by Dr. Abreu in consultation who plans to take him to surgery Wednesday. The patient has no other complaints except related to his injuries. Source: patient Exam Limitations: no limitations Date Seen 05/13/19 Time Seen by a Provider: 11:45 Attending Physician Sally Farah MD [facility] Referring Physician Date of Admission May 12, 2019 at 19:27 Home Medications & Allergies Home Medications Reviewed patient Home Medication Reconciliation performed by pharmacy medication reconciliations air launch weapons technician and/or nursing. Patients Allergies have been reviewed. Allergies Allergies Coded Allergies cortisone (Unverified Allergy, Mild, 09/18/08) Isosorbide Mononitrate (Unverified Allergy, Unknown, 02/26/11) Past Gebrflv-Oyasxe-Lybqpy Hx Past Med/Social Hx: Reviewed Nursing Past Med/Soc Hx Patient Social History Marrital Status: Employed/Student: retired Alcohol Use: Occasionally Uses Number of Drinks Today: AA Alcohol Beverage of Choice: Beer Recreational Drug Use: No Smoking Status: Former Smoker Type Used: Cigars Recent Foreign Travel: No Contact w/other who traveled: No Recent Hopitalizations: No Recent Infectious Disease Expo: No Immunizations Up To Date Tetanus Booster (TDap): More than 5yrs Pediatric: Yes Date of Pneumonia Vaccine: Dec 10, 2018 Past Medical History Surgeries: Orthopedic, Pacemaker Cardiac: Atrial Fibrillation, High Cholesterol, Hypertension Reproductive: No Musculoskeletal: Osteoporosis, Fractures History of Blood Disorders: No Adverse Reaction to Blood Wagner: No Family History No Pertinent Family Hx Review of Systems Constitutional: no symptoms reported EENTM: no symptoms reported Respiratory: no symptoms reported Cardiovascular: no symptoms reported Gastrointestinal: no symptoms reported Genitourinary: no symptoms reported Musculoskeletal: see HPI Skin: other (excoriation left forehead and lacerations of left arm) Psychiatric/Neurological: No Symptoms Reported Physical Exam Physical Exam Vital Signs Vital Signs - First Documented 05/12/19 17:27 Temp 36.7 Pulse 100 Resp 19 B/P (MAP) 125/85 (98) Pulse Ox 93 O2 Delivery Room Air Capillary Refill : Less Than 3 SecondsLess Than 3 Seconds Height, Weight, BMI Height: 5'7.00" Weight: 170lbs. 15.0oz. [id number]; 26.27 BMI Method:Stated General Appearance: No Apparent Distress, WD/WN HEENT: Other (and left forehead with multiple superficial excoriations) Neck: Limited Range of Motion Respiratory: Chest Non Tender, Lungs Clear, Normal Breath Sounds, No Accessory Muscle Use, No Respiratory Distress Cardiovascular: Regular Rate, Rhythm, No Gallop, Normal Peripheral Pulses, Systolic Murmur Gastrointestinal: Normal Bowel Sounds, No Organomegaly, Soft Back: Normal Inspection Extremity: Non Tender, No Calf Tenderness, No Pedal Edema Neurologic/Psychiatric: Alert, Oriented x3, No Motor/Sensory Deficits, Normal Mood/Affect Skin: Pallor Lymphatic: No Adenopathy Results Results/Procedures Labs Laboratory Tests 05/12/19 17:34 05/13/19 05:02 Patient resulted labs reviewed. Imaging: Reviewed Imaging Report Assessment/Plan Admission Diagnosis left displaced olecranon fracture Left pelvic pubic rami fracture Chronic atrial fibrillation status post pacemaker placement Osteoporosis with multiple fractures Multiple falls Plan to bridge with Lovenox and surgery will be Wednesday Admission Status: Inpatient Order (span 2 midnights) Reason for Inpatient Admission: patient was admitted on 05/12 and will not proceed to surgery until 05/15 while his Coumadin is corrected and he is bridged for surgery Clinical Quality Measures DVT/VTE Risk/Contraindication: Risk Factor Score Per Nursin RFS Level Per Nursing on Admit: 4+=Very High Copy Copies To 1: [facility]/SALLY SENA MD May 13, 2019 12:25
[2019-05-13] MEDS: ENOXAPARIN 80 MG/0.8 ML (LOVENOX) SYR SC SCH (12:37)
[2019-05-14] MEDS: ENOXAPARIN 80 MG/0.8 ML (LOVENOX) SYR SC SCH ×3 (00:31→22:23)
[2019-05-14] MEDS: HYDROcodone/APAP 5 MG/325 MG (LORTAB) TAB PO PRN ×7 (00:31→21:56)
[2019-05-14 04:00] VITALS: BP 110/75
[2019-05-14 06:02] LABS: HEMOGLOBIN 12.5 G/DL (13.3-17.7); MEAN PLATELET VOLUME 9.4 FL (7.4-10.4); RED CELL DISTRIBUTION WIDTH 12.9 % (10.0-14.5); WHITE BLOOD COUNT 6.4 10^3/uL (4.3-11.0)
[2019-05-14 06:16] LABS: INR 1.3 (0.8-1.4); PROTHROMBIN TIME PATIENT 17.1 SEC (12.2-14.7)
[2019-05-14 06:26] LABS: BUN/CREATININE RATIO 12; CALCIUM 7.9 MG/DL (8.5-10.1); CARBON DIOXIDE 21 MMOL/L (21-32); CHLORIDE 104 MMOL/L (98-107); CREATININE SERUM 0.69 MG/DL (0.60-1.30); GFR ESTIMATED > 60; GLUCOSE 103 MG/DL (70-105); POTASSIUM 3.7 MMOL/L (3.6-5.0); SODIUM 137 MMOL/L (135-145)
[2019-05-14 07:44] VITALS: BP 109/61
[2019-05-14] MEDS: CYCLOBENZAPRINE 10 MG (FLEXERIL) TAB PO PRN ×2 (08:32→21:56)
[2019-05-14] MEDS: DILTIAZEM 120 MG (CARDIZEM CD) CAP PO SCH (08:32)
[2019-05-14] MEDS: CEPHALEXIN 250 MG (KEFLEX) CAP PO SCH ×3 (08:32→21:56)
[2019-05-14] MEDS: fentaNYL INJECTION 100 MCG/2 ML AMP IV PRN (09:27)
--- NOTE | 2019-05-14 09:51 | Progress Note - Ortho ---
Progress Note Subjective Date of Exam 05/14/19 Chief Complaint Continued pain left elbow and left anterior to posterior pelvis HPI/Events since last exam Mr. Wheeler is 3 days since his injury. He continues with pain in the left elbow and left hemipelvis. He denies any numbness or tingling. Review of Systems Reviewed and no changes Allergies: Coded Allergies: cortisone (Unverified Allergy, Mild, 09/18/08) Isosorbide Mononitrate (Unverified Allergy, Unknown, 02/26/11) Home Meds Active Scripts Cefuroxime Axetil (Cefuroxime) 500 Mg Tablet, 500 MG PO BID for 5 Days, #10 TAB Prov:FELICIA MACIAS MD FACP FACC CCDS 05/02/19 Reported Medications Diltiazem HCl (Diltiazem ER) 120 Mg Capsule.er, 120 MG PO DAILY, CAP 05/02/19 Hydrocodone/Acetaminophen ([place] 5-325 Tablet) 1 Each Tablet, 1 TAB PO Q8H PRN for PAIN-MODERATE (5-7) MDD 10 TABS, TAB 05/02/19 Alendronate Sodium (Fosamax) 70 Mg Tablet, 70 MG PO WED, TAB 05/02/19 Warfarin Sodium (Warfarin Sodium) 5 Mg Tablet, 5 MG PO DAILY, TAB TAKES 5 MG ALONG WITH 1 & 1/2 (1MG) TO EQUAL 6.5MG DAILY 11/28/18 Warfarin Sodium (Warfarin Sodium) 1 Mg Tablet, 1.5 MG PO DAILY, TAB TAKES 1 & 1/2 TABS DAILY ALONG WITH A 5MG TO EQUAL 6.5MG DAILY 11/28/18 Atorvastatin Calcium (Atorvastatin Calcium) 40 Mg Tablet, 40 MG PO HS, TAB 11/28/18 Objective Exam Constitutional: [] HEENT: [] Neck: [] Cardiovascular: [] Respiratory: [] Gastrointestinal: [] Genitourinary: [] Skin: [] Back/Spine: [] Extremities: [] The left upper extremity splinted. Normal sensation of the fingers and thumb with good cap refill. No pain with range of motion the hand or fingers Left hip pain with range of motion over the anterior pelvis. Still pain over the left SI joint. Neurovascularly intact left lower extremity. No calf tenderness and negative Homans Neurologic: [] Psychiatric: [] Hematologic/lymphatic/immunologic: [] Vital Signs Vital Signs Date Time Temp Pulse Resp B/P (MAP) Pulse Ox O2 Delivery O2 Flow Rate FiO2 05/14/19 09:32 96 Room Air 05/14/19 07:44 36.4 94 18 109/61 (77) 97 Room Air 05/14/19 07:00 98 05/14/19 04:00 36.5 93 20 110/75 (87) 96 Room Air 05/14/19 01:00 88 05/13/19 23:44 36.0 94 18 104/72 (83) 93 Room Air 05/13/19 20:00 37.0 98 18 102/62 (75) 96 Room Air 05/13/19 19:15 Room Air 05/13/19 19:00 85 05/13/19 16:00 36.4 86 18 103/63 (76) 95 Room Air 05/13/19 12:19 83 05/13/19 11:13 36.0 96 20 114/75 (88) 95 Room Air I & O 05/14/19 07:00 Intake Total 1890 ml Output Total 1850 ml Balance 40 ml Lab Results Laboratory Tests 05/14/19 05:15: White Blood Count 6.4, Red Blood Count 4.15L, Hemoglobin 12.5L, Hematocrit 37L, Mean Corpuscular Volume 88, Mean Corpuscular Hemoglobin 30, Mean Corpuscular Hemoglobin Concent 34, Red Cell Distribution Width 12.9, Platelet Count 248, Mean Platelet Volume 9.4, Prothrombin Time 17.1H, INR Comment 1.3, Sodium Level 137, Potassium Level 3.7, Chloride Level 104, Carbon Dioxide Level 21, Anion Gap 12, Blood Urea Nitrogen 8, Creatinine 0.69, Estimat Glomerular Filtration Rate > 60, BUN/Creatinine Ratio 12, Glucose Level 103, Calcium Level 7.9L Assessment and Plan Assessment 3 days since injury to the left pelvis and left elbow Problem List Unchanged Plan Mr. Wheeler's INR today was 1.3. I have him scheduled for surgery tomorrow but we do not have a time yet. Plan on tension band wiring left olecranon fracture. Again the procedure risk F were discussed with the patient he would like to proceed Final Diagonsis Olecranon fracture left elbow Superior pubic rami fracture left pelvis Level of the visit: Level 3 Clinical Quality Measures DVT/VTE Risk/Contraindication: Risk Factor Score Per Nursin RFS Level Per Nursing on Admit: 4+=Very High MARSHALL ARRIOLA MD May 14, 2019 09:51
[2019-05-14 11:42] VITALS: BP 104/70
--- NOTE | 2019-05-14 11:55 | NUR ---
CONSENT FOR SURGERY IN AM, VERBALIZED UNDERSTANDING, NPO AFTER MIDNIGHT, LEFT ARM IN [place] WRAPE, MOVES FINGER WITHOUT DIFFICULTY, MRSA SWABS DONE, SALINE LOCK WITHOUT REDNESS OR SWELLING, VOIDING CLEAR YELLOW URINE, AT BEDSIDE.
[2019-05-14] MEDS ORDERED: MILK OF MAGNESIA 400 MG/5 ML 30 ML UDC PO PRN (13:15)
--- NOTE | 2019-05-14 13:18 | Progress Note - Hospitalist ---
Subjective HPI/CC On Admission Date Seen by Provider: May 14, 2019 Time Seen by Provider: 12:00 this is an unfortunate 63-year-old white male who was walking in his yard with his when he fell for an unknown reason striking his left elbow, left hip, and left side of his head. He believes his knee just gave way.He sustained a l eft pubic rami fracture and left displaced olecranon fracture. He has been on Coumadin for his chronic atrial fibrillation and his INR remains at 1.8 this am.. The patient was seen this morning by Dr. Abreu in consultation who plans to take him to surgery Wednesday. The patient has no other complaints except related to his injuries. Subjective/Events-last exam patient is fairly miserable because of his left elbow but other than that he has no complaints. he does note constipation Review of Systems Gastrointestinal: Constipation Musculoskeletal: arm pain Objective Exam Vital Signs Vital Signs Date Time Temp Pulse Resp B/P (MAP) Pulse Ox O2 Delivery O2 Flow Rate FiO2 05/14/19 12:01 106 05/14/19 11:42 36.7 18 104/70 (81) 94 Room Air Capillary Refill : Less Than 3 SecondsLess Than 3 Seconds General Appearance: No Apparent Distress, WD/WN HEENT: Normal ENT Inspection Neck: Full Range of Motion, Non Tender, Supple Respiratory: Lungs Clear, Normal Breath Sounds, No Accessory Muscle Use, No Respiratory Distress Cardiovascular: Regular Rate, Rhythm, No Gallop, No Murmur, Normal Peripheral Pulses, Irregularly Irregular Gastrointestinal: Normal Bowel Sounds, Non Tender, Soft Extremity: No Pedal Edema Results/Procedures Lab Laboratory Tests 05/14/19 05:15 Patient resulted labs reviewed. Imaging: Reviewed Imaging Report Assessment/Plan Assessment and Plan Assess & Plan/Chief Complaint left displaced olecranon fracture Left pelvic pubic rami fracture Chronic atrial fibrillation status post pacemaker placement Osteoporosis with multiple fractures Multiple falls constipation-milk of magnesia Plan for surgery tomorrow Clinical Quality Measures DVT/VTE Risk/Contraindication: Risk Factor Score Per Nursin RFS Level Per Nursing on Admit: 4+=Very High RAY DAVILA MD May 14, 2019 13:18
[2019-05-14 15:57] VITALS: BP 103/60
[2019-05-14 20:01] VITALS: BP 110/66
[2019-05-15] VITALS (14 sets, daily range): BP systolic 104–139; BP diastolic 67–106
[2019-05-15] MEDS: fentaNYL INJECTION 100 MCG/2 ML AMP IV PRN ×7 (01:16→22:11)
[2019-05-15] MEDS ORDERED: WATER (STERILE) FOR INJECTION 10 ML ONE ×2 (05:08→05:24)
[2019-05-15] MEDS ORDERED: LACTATED RINGERS 1,000 ML IV ONE (05:08)
[2019-05-15] MEDS ORDERED: ceFAZolin INJECTION 1,000 MG ONE ×3 (05:08→08:03)
[2019-05-15] MEDS: ceFAZolin 2 GM/50 ML NS 50 ML IV SCH ×2 (05:23→15:23)
--- NOTE | 2019-05-15 05:54 | NUR ---
SURGICAL BATH COMPLETED, LINENS/GOWN CHANGED. PT DID WELL DURING HYGIENE CARES, BUT C/O SEVERE PAIN WHEN REPOSITIONED. 2G ANCEF GIVEN PER ORDERS. LR IV STARTED.
[2019-05-15] MEDS ORDERED: LACTATED RINGERS 1,000 ML IV PRN ×2 (07:14→07:37)
[2019-05-15] MEDS ORDERED: MEPERIDINE (DEMEROL) INJ 50 MG/ML IVP ONE (07:15)
[2019-05-15] MEDS ORDERED: fentaNYL INJECTION 100 MCG/2 ML AMP IVP ONE (07:15)
[2019-05-15] MEDS ORDERED: ONDANSETRON 4 MG/2 ML (SDV) Z0FRAN IVP PRN (07:15)
[2019-05-15] MEDS ORDERED: morphine INJ 10 MG/ML 1ML (SYR OR VIAL) IVP ONE (07:15)
[2019-05-15] MEDS ORDERED: MIDAZOLAM 2 MG/2 ML (VERSED) VIAL ONE (07:21)
[2019-05-15] MEDS ORDERED: NEO/POLY/BAC (NEOSPORIN) OINT 15 GM TUBE ONE (07:25)
[2019-05-15] MEDS ORDERED: BUP/EPI 0.5% 1:200,000 (SENSORCAINE) 30 ML VIAL ONE (07:26)
--- NOTE | 2019-05-15 07:30 | NUR ---
PT TAKEN TO SURGERY
--- NOTE | 2019-05-15 07:34 | Progress Note-Pre Operative ---
Pre-Operative Progress Note H&P Reviewed The H&P was reviewed, patient examined and no changes noted. Date Seen by Provider: May 15, 2019 Time Seen by Provider: 07:30 Date H&P Reviewed: May 15, 2019 Time H&P Reviewed: 07:33 Pre-Operative Diagnosis: displaced olecranon fracture left elbow. MARSHALL ARRIOLA MD May 15, 2019 07:34
[2019-05-15] MEDS ORDERED: ceFAZolin INJECTION 1,000 MG VIAL IV ONE (08:15)
[2019-05-15] MEDS ORDERED: PHENYLEPHRINE INJ 10 MG/ML (FOR DRIP KITS ONLY) ONE (08:15)
[2019-05-15] MEDS ORDERED: LIDOCAINE PF 2% 5 ML (XYLOCAINE) VIAL ONE (08:15)
[2019-05-15] MEDS ORDERED: proPOfol 200 MG/20 ML (DIPRIVAN) VIAL IV ONE (08:15)
[2019-05-15] MEDS ORDERED: ESMOLOL 100 MG/10 ML (BREVIBLOC) VIAL ONE (08:22)
[2019-05-15] MEDS ORDERED: ISOFLURANE (FORANE) 15 ML/15 MIN INHALATION ONE (09:34)
--- NOTE | 2019-05-15 09:35 | Physician Query Clarification ---
PQ-Further Specificity Admission/Discharge Admission Date: May 12, 2019 at 19:27 Discharge Date: The medical record reflects the following clinical scenario: History/Risk Factors: fall, osteoporosis Clinical Findings: Displaced Lt. olecranon fx, Lt superior pubic rami fx Treatment: surgical repair olecranon fx Question: Can you further specify if the fractures are due to osteoporosis or due to the fall (traumatic) per the clinical indicators above? Please document a response in the Progress Notes or Discharge Summary. 1. fractures are due to the fall (traumatic fractures) 2. fractures are due to the patient's known osteoporosis 3. Other, with explanation of the clinical findings. 4. Clinically undetermined, no explanation for the clinical findings. PHYSICIAN RESPONSE Can you specify per above: 1 Explanation/Clinical Findings It is my. At the superior pubic rami fracture on the left and the olecranon fracture left elbow are both due to trauma/fall Please remember a lack of response to the above will prompt a phone page by CDI/Coding staff. In responding to this query, please exercise your independent professional judgment. The purpose of this communication is to more accurately reflect the complexity of your patients condition. The fact that a question is asked does not imply that any particular answer is desired or expected. Thank you for your timely response to this clarification. Requestors name: Diego THIS PHYSICIAN QUERY FORM IS A PERMANENT PART OF THE MEDICAL RECORD DIEGO BUSTILLOS May 15, 2019 09:35 MARSHALL ARRIOLA MD May 15, 2019 11:19
[2019-05-15] MEDS ORDERED: morphine INJ 10 MG/ML 1ML (SYR OR VIAL) ONE (09:57)
--- NOTE | 2019-05-15 10:38 | Diagnostic Imaging Report ---
INDICATION: Fluoroscopy for left elbow ORIF. Fluoroscopy was provided in the OR during left elbow ORIF. 13 seconds of fluoroscopic time was utilized. Images demonstrate hardware transfixing an olecranon fracture. Alignment is anatomic. IMPRESSION: Fluoroscopy for elbow ORIF. Dictated by: Dictated on workstation # [id number]
--- NOTE | 2019-05-15 11:06 | NUR ---
PT BACK ON MANAGER IMPLEMENTATION OFF FROM [facility]
[2019-05-15] MEDS ORDERED: CALC-6 PO (11:07)
[2019-05-15] MEDS ORDERED: HYDR-3812 PO (11:07)
[2019-05-15] MEDS ORDERED: MULT1CAP27 PO (11:09)
--- NOTE | 2019-05-15 11:11 | NUR ---
SPOKE WITH PTS (HE HAD JUST RETURNED FROM SURGERY AND WAS RESTING) HOWEVER SHE HAD HIS MED BOTTLES AND SHE TAKES CARE OF HIS MEDICATIONS. I COMPLETED THE MED REC USING THE HOME MED BOTTLES AND HER INFORMATION ALONG WITH GOING OVER THE EXT MED HISTORY. ALL BOTTLES HAD GOOD DATING AND MATCHED THE EXT MED HISTORY. HYDROCODONE: HE ONLY TAKES PRN AND MOST DAYS HE DOESNT TAKE IT WARFARIN: HE TAKES 1 (5MG) TAB AND 1& (1MG) TAB TO EQUAL 6.5 MG DAILY. OTC MEDS: [employer] CALCIUM + VIT D
--- NOTE | 2019-05-15 11:17 | Operative Report - Ortho ---
Operative Report Surgeon (s)/[employer] (s) Surgeon MARSHALL ARRIOLA MD [employer] n/a Pre-Operative Diagnosis displaced olecranon fracture left elbow. Post-Operative Diagnosis same Operative Report Date of Procedure: May 15, 2019 Name of Procedure Performed: Open reduction internal fixation of olecranon fracture left elbow with a tension band cable and 1 cortical lag screw/washer Description & Findings The patient was seen in his hospital room prior to surgery. We discussed proceed risk altercations and again he would like to proceed. He has no questions or concerns. He was taken out of the preop area and then into the OR in his hospital bed. I had ordered 2 g Ancef IV approximately one half hour prior to surgery. He did receive 2 g at approximately 0530 so we gave him 1 g of Ancef as he was taken into the OR in approximately 08 30. After administration of general anesthesia was transferred to the OR table. He was taken out of his splint and there was still a little redness around one of his abrasions but no evidence of infection. No drainage. A tourniquet was placed on the left upper arm. The left hand and arm were then prepped and draped in the usual sterile manner. A timeout was performed prior to making the incision. Incision was made just proximal to the tip of the olecranon along the ulnar aspect to avoid the linear superficial abrasion. This was taken down through subjacent tissue fracture hematoma was noted and this was irrigated and removed. The soft tissue and periosteum were elevated off of the proximal ulna. The fracture consisted of the large olecranon fragment and then a smaller comminuted fragment ulnar to the main fracture line. No intra-articular damage was noted. No loose bodies. The fracture was reduced without difficulty placing the arm in about 45 of flexion. The fragment reduced 2-2.0 millimeter K wires were placed through the tip of the olecranon across the fracture site into the ulnar distal to the fracture engaging the anterior cortex. Images used to visualize position and excellent position was noted. The fracture did avoid the joint. The fracture was well reduced. This point a drill hole was made distal to the fracture approximately 2-1/2 cm with a 2.0 drill bit. A 1.0 mm cable was then placed through the drill hole and then placed proximally in a cnrgzt-wd-vnmfc fashion underneath the triceps insertion and then back down through the cable crimp. At this point the cable was initially tightened by hand and then with the tensioner. This held the fragment reduced. The elbow was then taken through range of motion and no motion was noted with no opening at the fracture site. At this point the cable crimp was crimped holding the cable in position. The cable was then cut. The elbow was taken through full range of motion and again good stabilization of the fracture was noted. X-ray was then obtained which showed good position of the K wires and the cable as well as the fracture. At this point the K wires were withdrawn slightly and then bent and cut and then repositioned distally with the bend of the K wire extending over the cable beneath the triceps tendon. Next the medial fragment was reduced and drilled and a 3.5 mm screw was inserted with a washer holding the fragment in good position. The fragment did not have good cortical bone that with the soft tissue attachment and it stayed in place. Images and used to again visualize the position of the screw and it looked as though it may be in the joint so the screw was removed and the position of the screw in the drill hole was dorsal to the K wires so is definitely not in the joint. The fragment and screw were reinserted. This point final x-rays were obtained. The tourniquet was deflated after 44 minutes. There was minimal bleeding. Bleeders are cauterized. The wound was irrigated with normal saline. The periosteum and musculature were closed with 0 Vicryl over the distal aspect of the tension band construct. The subtendinous tissue is closed with 2-0 Vicryl and the skin with skin clips. The skin was injected with 20 mL's of 0.5 percent Marcaine with epinephrine. The wound was dressed with antibiotic ointment, Adaptic and 4 x 4's. The arm was wrapped with cast padding and a posterior splint was applied with mediolateral struts. This was then wrapped with Parrish wraps. He had a couple abrasions over the dorsum of the hand that were dressed with antibiotic ointment and Adaptic. Patient had a good radial pulse and good capillary refill after the procedure. The left arm was then placed in a sling. The patient was transferred to his hospital bed then to recovery room in good condition. He tolerated procedure well. Tourniquet time was 44 minutes at 250 mmHg Drainsnone Blood loss30 mL's Complicationsnone AnesthesiaGen. n/a Estimated Blood Loss minimal Packing none. Specimen(s) collected/removed none MARSHALL ARRIOLA MD May 15, 2019 11:17
[2019-05-15] MEDS: DILTIAZEM 120 MG (CARDIZEM CD) CAP PO SCH (11:39)
--- NOTE | 2019-05-15 11:46 | Progress Note - Hospitalist ---
Subjective HPI/CC On Admission Date Seen by Provider: May 15, 2019 Time Seen by Provider: 12:15 this is an unfortunate 63-year-old white male who was walking in his yard with his when he fell for an unknown reason striking his left elbow, left hip, and left side of his head. He believes his knee just gave way.He sustained a left pubic rami fracture and left displaced olecranon fracture. He has been on Coumadin for his chronic atrial fibrillation and his INR remains at 1.8 this am.. The patient was seen this morning by Dr. Abreu in consultation who plans to take him to surgery Wednesday. The patient has no other complaints except related to his injuries. Subjective/Events-last exam Pt is in OR having surgery. Pt may require inpatient rehab. Family waiting for him in the room. I evaluated the patient after Dr Abreu checked his left hand after surgery and no evidence of any neurovascular compromise IRF will be needed Replaced pacemaker Dr Rock 2 weeks ago so I just updated Dr Nielson on the consultation request and he transitioned to AF w/RVR Review of Systems General: Fatigue Musculoskeletal: back pain, leg pain Objective Exam Vital Signs Vital Signs Date Time Temp Pulse Resp B/P (MAP) Pulse Ox O2 Delivery O2 Flow Rate FiO2 05/15/19 16:58 36.9 91 20 119/70 (86) 95 Nasal Cannula 3.00 Capillary Refill : Less Than 3 SecondsLess Than 3 Seconds General Appearance: No Apparent Distress, WD/WN, Chronically ill Respiratory: Lungs Clear Cardiovascular: Irregularly Irregular, Tachycardia Neurologic/Psychiatric: Alert, Oriented x3, No Motor/Sensory Deficits, Normal Mood/Affect Results/Procedures Lab Patient resulted labs reviewed. Imaging: Reviewed Imaging Report Assessment/Plan Assessment and Plan Assess & Plan/Chief Complaint Assessment: Left pelvic fracture Left elbow fracture s/p repair POD # 0 Pacemaker replacement [address] Rock AF w/RVR requiring Dr Nielson consultation Plan: Pain control BM regimen PT/OT IRF Cardiology Diagnosis/Problems Diagnosis/Problems (1) Status post fall Status: Acute (2) Pacemaker (3) Fracture of left pelvis Status: Acute Qualifiers: Encounter type: initial encounter Pelvic bone location: pubis Sublocation of pubis: superior rim Fracture type: closed Qualified Codes: S32.512A - Fracture of superior rim of left pubis, initial encounter for closed fracture (4) Left elbow fracture Status: Acute Qualifiers: Encounter type: initial encounter Fracture type: closed Qualified Codes: S42.402A - Unspecified fracture of lower end of left humerus, initial encounter for closed fracture (5) Multiple skin tears Status: Acute (6) Atrial fibrillation with rapid ventricular response Status: Acute (7) Smoker Status: Chronic (8) Alcohol dependence Status: Chronic Clinical Quality Measures DVT/VTE Risk/Contraindication: Risk Factor Score Per Nursin RFS Level Per Nursing on Admit: 4+=Very High EDNA SUTTON DO May 15, 2019 11:46
--- NOTE | 2019-05-15 12:32 | NUR ---
CALL FROM TELE MONITOR MONTEZ IN ICU, PATIENTS HR WAS UP IN THE 1120 - 130S. I GAVE PATIENT PAIN MEDICATION AND HIS MORNING DOSE OF DILTIAZEM. MONTEZ CALL AGAIN AROUND 1230 TO LET ME KNOW PATIENT'S HR WAS NOW UP IN 130 -150. I CHECKED ON PATIENT AND PT HAD HIM UP AND WALKING IN ROOM. I CALLED DR. MELO AND ADVISED HIM. HE ORDERED ANOTHER DOSE OF DILTIAZEM 125 MG ONCE. WHILE I WAS PLACING ORDER ICU CALLED ONCE AGAIN TO ADVISE THAT HIS HR WAS NOW UP IN THE 170S. AFTER PT HAD PUT PATIENT BACK IN BED. ICU CALLED TO LET ME KNOW THAT HIS HEART RATE WAS NOW IN THE 90'S TO LOW 100S. I CALLED DR. MELO AND HE SAID TO HOLD THE EXTRA DOSE OF DILTIAZEM.
--- NOTE | 2019-05-15 13:03 | NUR ---
IRF Evaluation Order received to evaluate patient for the ARU. Patient underwent ORIF of olecranon fracture, today. Will continue to follow for ongoing evaluation. Thank you for this referral. Addendum: 05/16/19 at 1347 by AUGUST R GLENN SS Chart review complete and findings discussed with Dr. Coronado - patient accepted for admission. It is noted patient's primary insurance provider is [employer]; therefore, requiring prior authorization. There is not an available bed on the ARU, at this time. Once it appears a bed will become available, prior authorization process will be initiated. Intend to meet with patient to discuss the above information.
[2019-05-15] MEDS ORDERED: DILTIAZEM 120 MG (CARDIZEM CD) CAP PO ONE (13:15)
--- NOTE | 2019-05-15 13:42 | Physical Therapy Evaluation ---
PT Evaluation-General Medical Diagnosis Admission Date May 12, 2019 at 19:27 Medical Diagnosis: left olecronon fracture/left suprapubic rami fracture Onset Date: May 12, 2019 Therapy Diagnosis Therapy Diagnosis: generalized weakness/debility Height/Weight Height (Feet): 5 Height (Inches): 7.00 Weight (Pounds): 170 Weight (Ounces): 15.0 Precautions Precautions/Isolations: Fall Prevention, Standard Precautions Weight Bear Status Right Lower Extremity: Right Full Weight Bearing Left Lower Extremity: Left Weight Bearing/Tolerated Referral Physician: Brady Reason for Referral: Evaluation/Treatment Medical History Pertinent Medical History: Atrial Fib, HTN Additional Medical History osteoporosis, pacemaker, left hip fracture with ORIF November 2018 Current History EMS secondary to a fall at home while walking outside and left knee "gave out". Reviewed History: Yes Social History Home: Single Level Current Living Status: Spouse Prior Prior Level of Function SCALE: Activities may be completed with or without assistive devices. 4-Otbcwstxbj-bxlojrq completes the activity by him/herself with no assistance from a helper. 5-Set-up or Clean-up Assistance-helper sets up or cleans up; patient completes activity. Roland assists only prior to or following the activity. 4-Supervision or Touching Assistance-helper provides verbal cues and/or touc rody/steadying and/or contact guard assistance as patient completes activity. Assistance may be provided throughout the activity or intermittently. 3-Partial/Moderate Assistance-helper does LESS THAN HALF the effort. Roland lifts, holds or supports trunk or limbs, but provides less than half the effort. 2-Substantial/Maximal Assistance-helper does MORE THAN HALF the effort. Roland lifts or holds trunk or limbs and provides more than half the effort. 1-Ialdbdvho-tqrphy does ALL the effort. Patient does none of the effort to complete the activity. Or, the assistance of 2 or more helpers is required for the patient to complete the activity. If activity was not attempted, code reason: 7-Patient Refused. 9-Not Applicable-not attempted and the patient did not perform the activity before the current illness, exacerbation or injury. 10-Not Attempted due to Environmental Limitations-(lack of equipment, weather restraints, etc.). 88-Not Attempted due to Medical Conditions or Safety Concerns. Bed Mobility: 6 Transfers (B,C,W/C): 6 Gait: 6 Stairs: 6 Indoor Mobility (Ambulation): Independent Stairs: Independent Prior Devices Use: None PT Evaluation-Current Subjective Patient agrees to PT. Pain Numeric Pain Scale: 8 Location: Left Location Body Site: Pelvic Pain Description: Acute Objective Patient Orientation: Normal For Age Attachments: Oxygen, IV ROM/Strength ROM Lower Extremities left LE limited due to pain/right LE WFL Strength Lower Extremities right LE 4/5 grossly; left LE 3/5 grossly Integumentary/Posture Integumentary noted bilateral gluteal wounds with RN in to assess and zinc cream applied Bowel Incontinence: No Bladder Incontinence: No Posture WFL Neuromuscular (Tone, Coordination, Reflexes) grossly intact Sensory Vision: Wears Glasses Hearing: Functional Sensation Right Lower Extremit: Intact Sensation Left Lower Extremity: Intact Transfers Roll Left to Right (QC): 2 Sit to Lying (QC): 2 Lying to Sitting/Side of Bed(Q: 2 Sit to Stand (QC): 2 Chair/Gdt-av-Thild Xfer(QC): 2 Gait Does the Patient Walk?: Yes Mode of Locomotion: Walk Anticipated Mode of Locomotion: Walk Distance: 5' Gait Assistive Device: Walker Matthias Comments/Gait Description side stepping/scooting/unable to advance left LE due to pain and difficulty with weight shifting to left due to pain Balance Sitting Static: Normal Sitting Dynamic: Normal Standing Static: Fair Standing Dynamic: Fair Assessment/Needs 63 y.o. male, will benefit from skilled PT to address functional strength and mobility to improve current LOF. Patient is currently limited by left LE pain and inability to use left UE. Rehab Potential: Fair PT Short Term Goals Short Term Goals Time Frame: May 25, 2019 Roll Left & Right: 5 Sit to lyin Lying to sitting on side of be: 5 Sit to stand: 4 Chair/aab-hm-qxwql transfer: 4 Toilet transfer: 4 Walk 10 feet: 4 Walk 50 feet with two turns: 4 PT Maintenance Instructor Goals Maintenance Instructor Goals PT Halfway Goals Time Frame: Jun 03, 2019 Roll Left & Right (QC): 6 Sit to Lying (QC): 6 Lying-Sitting on Side/Bed(QC): 6 Sit to Stand (QC): 6 Chair/Lgl-tb-Zxakl Xfer(QC): 6 Toilet Transfer (QC): 6 Car Transfer (QC): 6 Does the Patient Walk: Yes Walk 10 feet (QC): 6 Walk 50ft with 2 Turns (QC): 6 Walk 150 ft (QC): 6 Walking 10ft on Uneven Surface: 6 1 Step (curb) (QC): 6 4 Steps (QC): 6 PT Plan Problem List Problem List: Activity Tolerance, Functional Strength, Safety, Balance, Gait, Transfer, Bed Mobility, ROM Treatment/Plan Treatment Plan: Continue Plan of Care Treatment Plan: Bed Mobility, Education, Functional Activity Avis, Functional Strength, Gait, Safety, Therapeutic Exercise, Transfers Treatment Duration: Jun 03, 2019 Frequency: 11 times per week Estimated Hrs Per Day: .5 hour per day Patient and/or Family Agrees t: Yes Time/GCodes Time In: 1250 Time Out: 1314 Total Billed Treatment Time: 24 Total Billed Treatment 1 visit [facility] 24 min BIJAN VILLEGAS PT May 15, 2019 13:42
--- NOTE | 2019-05-15 14:10 | NUR ---
Pastoral care visit.
[2019-05-15] MEDS: HYDROcodone/APAP 5 MG/325 MG (LORTAB) TAB PO PRN ×3 (15:17→22:11)
[2019-05-15] MEDS: LACTATED RINGERS 1,000 ML IV PRN (16:54)
--- NOTE | 2019-05-15 16:56 | NUR ---
NEW BAG OF LR HUNG NOW. PATIENT HAD REST OF BAG FROM OR AND THEN THE BAG NIGHTSHIFT HAD HANGING AT SHIFT CHANGE
--- NOTE | 2019-05-15 18:18 | Consultation-Cardiology ---
HPI-Cardiology Cardiology Consultation: Date of Consultation 05/15/19 Date of Admission Attending Physician Bridgett Coronado DO Admitting Physician [place] Consulting Physician Breonna NIELSON MD HPI: Time Seen by a Provider: 16:00 Chief Complaint: Mechanical fall, atrial fibrillation This is a 63-year-old gentleman who has history of chronic atrial fibrillation on Coumadin. He follows with Dr. Rock. He had recently put in a permanent pa cemaker 2 weeks ago. Patient had a mechanical fall resulting in fracture of the pelvis. He is post orthopedic surgery. He denies active smoking. He denies any pertinent family history. He denies any other cardiac symptoms including shortness of breath, palpitations, shortness of breath, syncope, near-syncope. Review of Systems-Cardiology Review of Systems Constitutional: As described under HPI; No As described under HPI, No no symptoms reported, No chills, No fever, No lightheadedness Eyes: No As described under HPI, No no symptoms reported, No blindness, No bl urred vision, No contact lenses, No drainage, No decreased acuity, No foreign body sensation, No pain, No vision change Ears/Nose/Throat: No As described under HPI, No no symptoms reported, No chronic hearing loss, No ear discharge, No ear pain, No nasal drainage, No ulcerations Respiratory: No no symptoms reported; As described under HPI; No As described under HPI, No cough, No orthopnea, No shortness of breath, No SOB with excertion Cardiovascular: No no symptoms reported; As described under HPI; No As described under HPI, No chest pain, No edema, No irregular heart rate, No lightheadedness, No palpitations Gastrointestinal: No no symptoms reported, No As described under HPI, No abdomen distended, No abdominal pain, No blood streaked bowels, No constipation, No diarrhea, No nausea, No vomiting, No stool coloration changes Genitourinary: No As described under HPI, No burning, No dysuria, No discharge, No frequency, No flank pain, No hematuria, No urgency Skin: No rash, No skin related problems, No ulcerations Psychiatric/Neurological: No anxiety, No depression, No seizure, No focal weakness, No syncope Hematologic: No bleeding abnormalities SPZ-Tylbcb-Fkdeyz Hx Patient Social History Marrital Status: Employed/Student: retired Alcohol Use: Occasionally Uses Recreational Drug Use: No Smoking Status: Former Smoker Type Used: Cigars Recent Foreign Travel: No Recent Infectious Disease Expo: No Hospitalization with Isolation: Denies Immunizations Up To Date Tetanus Booster (TDap): More than 5yrs Date of Pneumonia Vaccine: Dec 10, 2018 Past Medical History PMH As described under Assessment. Allergies and Home Medications Allergies Coded Allergies: cortisone (Unverified Allergy, Mild, 09/18/08) Isosorbide Mononitrate (Unverified Allergy, Unknown, 02/26/11) Home Medications Alendronate Sodium 70 Mg Tablet, 70 MG PO WED, (Reported) Atorvastatin Calcium 40 Mg Tablet, 40 MG PO HS, (Reported) Calcium Carbonate/Vitamin D3 1 Each Tablet, 1 EACH PO DAILY, (Reported) Diltiazem HCl 120 Mg Capsule.er, 120 MG PO DAILY, (Reported) Hydrocodone/Acetaminophen 1 Each Tablet, 1 TAB PO DAILY PRN for PAIN-MODERATE (5-7), (Reported) Multivitamin 1 Each Capsule, 1 EACH PO DAILY, (Reported) Warfarin Sodium 1 Mg Tablet, 1.5 MG PO DAILY, (Reported) TAKES 1 & 1/2 TABS DAILY ALONG WITH A 5MG TO EQUAL 6.5MG DAILY Warfarin Sodium 5 Mg Tablet, 5 MG PO DAILY, (Reported) TAKES 5 MG ALONG WITH 1 & 1/2 (1MG) TO EQUAL 6.5MG DAILY Patient Home Medication List Home Medication List Reviewed: Yes Physical Exam-Cardiology Physical Exam Vital Signs/I&O 05/15/19 05/15/19 05/15/19 05/15/19 07:00 07:15 09:48 09:48 Temp 36.8 Pulse 96 Resp 16 B/P (MAP) 139/106 (117) Pulse Ox 94 96 O2 Delivery OxyMask OxyMask OxyMask O2 Flow Rate 10.00 10 10 05/15/19 05/15/19 05/15/19 05/15/19 10:00 10:02 10:10 10:15 Resp 18 16 B/P (MAP) 134/91 (105) 107/91 (96) Pulse Ox 99 99 O2 Delivery OxyMask OxyMask OxyMask OxyMask O2 Flow Rate 10 10 10 10 05/15/19 05/15/19 05/15/19 05/15/19 10:20 10:30 10:30 10:40 Resp 16 16 16 B/P (MAP) 119/88 (98) 120/82 (95) 112/80 (91) Pulse Ox 99 96 95 O2 Delivery OxyMask OxyMask OxyMask Room Air O2 Flow Rate 5 10 5 05/15/19 05/15/19 05/15/19 05/15/19 10:45 10:50 11:00 11:00 Temp 36.4 36.4 Pulse 104 Resp 16 20 B/P (MAP) 110/80 (90) 122/73 (89) Pulse Ox 95 91 O2 Delivery Room Air Room Air Room Air Room Air 05/15/19 05/15/19 13:00 16:58 Temp 36.9 Pulse 139 91 Resp 20 B/P (MAP) 119/70 (86) Pulse Ox 95 O2 Delivery Nasal Cannula O2 Flow Rate 3.00 05/15/19 00:00 Intake Total 1334 ml Output Total 1650 ml Balance -316 ml Capillary Refill : Less Than 3 SecondsLess Than 3 Seconds Constitutional: appears stated age, AAO x 3; No apparent distress; well- developed, well-nourished HEENT: PERRL; No discharge; hearing is well preserved, oral hygience is good; No ulceration, No xanthelasmas are seen Neck: No carotid bruit; carotid pulses are 2 + bilaterally Respiratory: chest is bilaterally symmetric, lungs clear to auscultation Cardiovascular: irregularly irregular, S1 and S2 Gastrointestinal: soft, audible bowel sounds; No spleenomegaly Rectal: deferred Extremities: normal range of motion, non-tender, normal inspection; No clubbing, No cyanosis; no lower extremity edema bilateral; No significant edema Neurologic/Psychiatric: no motor/sensory deficits, alert, oriented x 3, power is 5/5 both on sides Skin: normal color; No rash, No ulcerations Data Review Labs Microbiology 05/14/19 MRSA Screen - Final, Complete MRSA not isolated ECG Impression ECG Initial ECG Impression: Atrial Fibrillation w/RVR A/P-Cardiology Assessment/Admission Diagnosis Mechanical fall, Status post orthopedic surgery, Cardiac pacemaker, Chronic atrial fibrillation, RVR, On oral anticoagulation, subtherapeutic INR Plan Mechanical fall, Status post orthopedic surgery, Cardiac pacemaker, no active issues. Chronic atrial fibrillation, RVR, one-sided already seen the patient I was called by the nurse to inform me that the patient had an episode of atrial fibrillation with RVR. I recommended an extra dose of Cardizem. On oral anticoagulation, subtherapeutic INR, continue Coumadin therapy. Thank you for your consultation. Please call me if you have any questions. Tiffanie Nielson MD, FACP, FACC, FSCAI, FHRS, CCDS Interventional Cardiology Cardiac Electrophysiology Vascular Medicine and Endovascular Interventions Clinical Quality Measures DVT/VTE Risk/Contraindication: Risk Factor Score Per Nursin RFS Level Per Nursing on Admit: 4+=Very High Breonna NIELSON MD May 15, 2019 18:18
[2019-05-15] MEDS: CYCLOBENZAPRINE 10 MG (FLEXERIL) TAB PO PRN (19:42)
[2019-05-15] MEDS: ENOXAPARIN 40 MG/0.4 ML (LOVENOX) SYR SC SCH (22:12)
--- NOTE | 2019-05-15 22:55 | NUR ---
NOTIFIED LESLEY OF PT UNCONTROLLED PAIN AT THIS TIME. ORDER FOR 1MG DILAUDID Q3H OBTAINED.
[2019-05-16] VITALS: BP 112/74
[2019-05-16] MEDS: HYDROmorphone 2 MG/ML VIAL (DILAUDID) IV PRN ×2 (00:01→06:11)
[2019-05-16 04:00] VITALS: BP 122/84
[2019-05-16] MEDS: ceFAZolin 2 GM/50 ML NS 50 ML IV SCH ×2 (06:11)
[2019-05-16] MEDS: CYCLOBENZAPRINE 10 MG (FLEXERIL) TAB PO PRN ×2 (06:11→20:55)
[2019-05-16 06:26] LABS: BASOPHILS % (AUTO) 0 % (0-10); EOSINOPHILS # (AUTO) 0.1 10^3/uL (0.0-0.3); EOSINOPHILS % (AUTO) 1 % (0-10); HEMATOCRIT 35 % (40-54); HEMOGLOBIN 11.5 G/DL (13.3-17.7); LYMPHOCYTES # (AUTO) 0.8 X 10^3 (1.0-4.0); LYMPHOCYTES % (AUTO) 11 % (12-44); MEAN CORPUSCULAR HEMOGLOBIN 30 PG (25-34); MEAN CORPUSCULAR HGB CONC 33 G/DL (32-36); MEAN CORPUSCULAR VOLUME 90 FL (80-99); MEAN PLATELET VOLUME 9.1 FL (7.4-10.4); MONOCYTES # (AUTO) 1.3 X 10^3 (0.0-1.0); MONOCYTES % (AUTO) 17 % (0-12); NEUTROPHILS # (AUTO) 5.2 X 10^3 (1.8-7.8); NEUTROPHILS % (AUTO) 71 % (42-75); PLATELET COUNT 271 10^3/uL (130-400); RED CELL DISTRIBUTION WIDTH 12.5 % (10.0-14.5); WHITE BLOOD COUNT 7.3 10^3/uL (4.3-11.0)
[2019-05-16 06:54] LABS: ALANINE AMINOTRANSFERASE 29 U/L (0-55); ALBUMIN 3.4 GM/DL (3.2-4.5); ALKALINE PHOSPHATASE 85 U/L (40-136); BUN/CREATININE RATIO 7; CALCIUM 8.4 MG/DL (8.5-10.1); CARBON DIOXIDE 25 MMOL/L (21-32); CHLORIDE 99 MMOL/L (98-107); CREATININE SERUM 0.69 MG/DL (0.60-1.30); GFR ESTIMATED > 60; GLUCOSE 86 MG/DL (70-105); POTASSIUM 3.6 MMOL/L (3.6-5.0); SODIUM 136 MMOL/L (135-145); TOTAL PROTEIN 6.3 GM/DL (6.4-8.2)
[2019-05-16 08:00] VITALS: BP 127/72
[2019-05-16] MEDS: DILTIAZEM 120 MG (CARDIZEM CD) CAP PO SCH (09:15)
[2019-05-16] MEDS: fentaNYL INJECTION 100 MCG/2 ML AMP IV PRN (09:22)
--- NOTE | 2019-05-16 10:04 | Physical Therapy Daily Note ---
PT Daily Note-Current Subjective Patient is "drowsy" from pain medication. Agrees to PT. Spouse present. Pain Numeric Pain Scale: 8 Location: Left Location Body Site: Pelvic Pain Description: Acute Mental Status Patient Orientation: Normal For Age Attachments: Oxygen, IV Transfers SCALE: Activities may be completed with or without assistive devices. 6-Redxlzszbx-efzkrcy completes the activity by him/herself with no assistance from a helper. 5-Set-up or Clean-up Assistance-helper sets up or cleans up; patient completes activity. [place] assists only prior to or following the activity. 4-Supervision or Touching Assistance-helper provides verbal cues and/or touching/steadying and/or contact guard assistance as patient completes activity. Assistance may be provided throughout the activity or intermittently. 3-Partial/Moderate Assistance-helper does LESS THAN HALF the effort. [place] l ifts, holds or supports trunk or limbs, but provides less than half the effort. 2-Substantial/Maximal Assistance-helper does MORE THAN HALF the effort. [place] lifts or holds trunk or limbs and provides more than half the effort. 6-Kevtippux-yhmgmo does ALL the effort. Patient does none of the effort to complete the activity. Or, the assistance of 2 or more helpers is required for t he patient to complete the activity. If activity was not attempted, code reason: 7-Patient Refused. 9-Not Applicable-not attempted and the patient did not perform the activity before the current illness, exacerbation or injury. 10-Not Attempted due to Environmental Limitations-(lack of equipment, weather restraints, etc.). 88-Not Attempted due to Medical Conditions or Safety Concerns. Roll Left & Right (QC): 5 Sit to Lying (QC): 5 Lying to Sitting/Side of Bed(Q: 5 Sit to Stand (QC): 3 Chair/Lok-th-Jhupm Xfer(QC): 3 Weight Bearing Right Lower Extremity: Right Full Weight Bearing Left Lower Extremity: Left Weight Bearing/Tolerated Gait Training Does the Patient Walk?: Yes Distance: 15' Walk 10 feet (QC): 3 Walk 50 ft with 2 Turns(QC): 88 Walk 150 ft (QC): 88 Gait Assistive Device: Walker Matthias difficulty advancing left LE due to pain. Slow, step to with left LE scooting to advance with gait. Exercises Seated Therapy Exercises: Ankle pumps, Long arc quads Seated Reps: 15 (2) Assessment Patient requires time to complete all functional tasks due to left pelvic pain. Patient is improving very slowly with treatment plan. PT to increase activity as tolerated by patient. PT Short Term Goals Short Term Goals Time Frame: May 25, 2019 Roll Left & Right: 5 Sit to lyin Lying to sitting on side of be: 5 Sit to stand: 4 Chair/nic-fs-vzpxm transfer: 4 Toilet transfer: 4 Walk 10 feet: 4 Walk 50 feet with two turns: 4 PT Mcc Goals Mcc Goals PT Mcc Goals Time Frame: Jun 03, 2019 Roll Left & Right (QC): 6 Sit to Lying (QC): 6 Lying-Sitting on Side/Bed(QC): 6 Sit to Stand (QC): 6 Chair/Bek-gr-Xofuw Xfer(QC): 6 Toilet Transfer (QC): 6 Car Transfer (QC): 6 Does the Patient Walk: Yes Walk 10 feet (QC): 6 Walk 50ft with 2 Turns (QC): 6 Walk 150 ft (QC): 6 Walking 10ft on Uneven Surface: 6 1 Step (curb) (QC): 6 4 Steps (QC): 6 PT Plan Treatment/Plan Treatment Plan: Continue Plan of Care Treatment Plan: Bed Mobility, Education, Functional Activity Avis, Functional Strength, Gait, Safety, Therapeutic Exercise, Transfers Treatment Duration: Jun 03, 2019 Frequency: 11 times per week Estimated Hrs Per Day: .5 hour per day Patient and/or Family Agrees t: Yes Time/GCodes Time In: 851 Time Out: 917 Total Billed Treatment Time: 26 Total Billed Treatment 1 visit EX 9 min GT 17 min BIJAN VILLEGAS PT May 16, 2019 10:04
--- NOTE | 2019-05-16 10:31 | Progress Note - Ortho ---
Progress Note Subjective Date of Exam 05/16/19 Chief Complaint POD#1 open reduction internal fixation of olecranon fracture left elbow with tension band cable HPI/Events since last exam Mr. Wheeler is 1 day postop surgery left elbow. He states he having quite a bit of pain both in his left hip and his left elbow. He denies any numbness or tingling. Physical therapy has had him up ambulating weightbearing as tolerated on the left with no weight through the left arm. When I saw him he was up sitting in the chair and was having quite a bit of pain. Review of Systems Reviewed and no additions or changes Allergies: Coded Allergies: cortisone (Unverified Allergy, Mild, 09/18/08) Isosorbide Mononitrate (Unverified Allergy, Unknown, 02/26/11) Home Meds Reported Medications Multivitamin (Multivitamins) 1 Each Capsule, 1 EACH PO DAILY, CAP 05/15/19 Calcium Carbonate/Vitamin D3 (Calcium 600 + Vit D 200 Tablet) 1 Each Tablet, 1 EACH PO DAILY, TAB 05/15/19 Hydrocodone/Acetaminophen (Hydrocodone-Acetamin 5-325 mg) 1 Each Tablet, 1 TAB PO DAILY PRN for PAIN-MODERATE (5-7) 05/15/19 Diltiazem HCl (Diltiazem ER) 120 Mg Capsule.er, 120 MG PO DAILY, CAP 05/02/19 Alendronate Sodium (Fosamax) 70 Mg Tablet, 70 MG PO WED, TAB 05/02/19 Warfarin Sodium (Warfarin Sodium) 5 Mg Tablet, 5 MG PO DAILY, TAB TAKES 5 MG ALONG WITH 1 & 1/2 (1MG) TO EQUAL 6.5MG DAILY 11/28/18 Warfarin Sodium (Warfarin Sodium) 1 Mg Tablet, 1.5 MG PO DAILY, TAB TAKES 1 & 1/2 TABS DAILY ALONG WITH A 5MG TO EQUAL 6.5MG DAILY 11/28/18 Atorvastatin Calcium (Atorvastatin Calcium) 40 Mg Tablet, 40 MG PO HS, TAB 11/28/18 Discontinued Reported Medications Hydrocodone/Acetaminophen ([place] 5-325 Tablet) 1 Each Tablet, 1 TAB PO Q8H PRN for PAIN-MODERATE (5-7) MDD 10 TABS, TAB 05/02/19 Discontinued Scripts Cefuroxime Axetil (Cefuroxime) 500 Mg Tablet, 500 MG PO BID for 5 Days, #10 TAB Prov:FELICIA MACIAS MD FACP FAC CCDS 05/02/19 Objective Exam Constitutional: [] HEENT: [] Neck: [] Cardiovascular: [] Respiratory: [] Gastrointestinal: [] Genitourinary: [] Skin: [] Back/Spine: [] Extremities: His splint is intact to the left arm. He can move his fingers and thumb and has normal sensation and good capillary refill. Pain with range of motion left hip in the anterior and posterior pelvis no calf tenderness. Negative Homans. He is neurovascularly intact left lower extremity] Neurologic: [] Psychiatric: [] Hematologic/lymphatic/immunologic: [] Vital Signs Vital Signs Date Time Temp Pulse Resp B/P (MAP) Pulse Ox O2 Delivery O2 Flow Rate FiO2 05/16/19 08:00 36.0 106 18 127/72 (90) 99 Nasal Cannula 3.00 05/16/19 07:00 102 05/16/19 04:00 36.2 101 12 122/84 (97) 99 Nasal Cannula 3.00 05/16/19 00:42 65 05/16/19 00:00 36.6 105 12 112/74 (87) 94 Nasal Cannula 3.00 05/15/19 20:55 36.4 87 18 123/74 (90) 97 Nasal Cannula 1.00 05/15/19 20:00 Room Air 05/15/19 18:44 95 05/15/19 16:58 36.9 91 20 119/70 (86) 95 Nasal Cannula 3.00 05/15/19 13:00 139 05/15/19 11:00 Room Air 05/15/19 11:00 36.4 104 20 122/73 (89) 91 Room Air 05/15/19 10:50 36.4 16 110/80 (90) 95 Room Air 05/15/19 10:45 Room Air 05/15/19 10:40 16 112/80 (91) 95 Room Air 05/15/19 10:30 16 120/82 (95) 96 OxyMask 5 05/15/19 10:30 OxyMask 10 I & O 05/16/19 07:00 Intake Total 4540 ml Output Total 3855 ml Balance 685 ml Lab Results Laboratory Tests 05/16/19 06:12: White Blood Count 7.3, Red Blood Count 3.88L, Hemoglobin 11.5L, Hematocrit 35L, Mean Corpuscular Volume 90, Mean Corpuscular Hemoglobin 30, Mean Corpuscular Hemoglobin Concent 33, Red Cell Distribution Width 12.5, Platelet Count 271, Mean Platelet Volume 9.1, Neutrophils (%) (Auto) 71, Lymphocytes (%) (Auto) 11L, Monocytes (%) (Auto) 17H, Eosinophils (%) (Auto) 1, Basophils (%) (Auto) 0, Neutrophils # (Auto) 5.2, Lymphocytes # (Auto) 0.8L, Monocytes # (Auto) 1.3H, Eosinophils # (Auto) 0.1, Basophils # (Auto) 0.0, Sodium Level 136, Potassium Level 3.6, Chloride Level 99, Carbon Dioxide Level 25, Anion Gap 12, Blood Urea Nitrogen 5L, Creatinine 0.69, Estimat Glomerular Filtration Rate > 60, BUN/Creatinine Ratio 7, Glucose Level 86, Calcium Level 8.4L, Corrected Calcium 8.9, Total Bilirubin 1.0, Aspartate Amino Transf (AST/SGOT) 29, Alanine Aminotransferase (ALT/SGPT) 29, Alkaline Phosphatase 85, Total Protein 6.3L, Albumin 3.4 Microbiology 05/14/19 MRSA Screen - Final, Complete MRSA not isolated Assessment and Plan Assessment Doing well postop other than continued pain Problem List Unchanged Plan Continue with ambulation weightbearing as tolerated on the left. He did order oxycodone for oral pain medication other than the hydrocodone. He has adequate IV pain medication ordered Final Diagonsis Status post open reduction internal fixation olecranon fracture left elbow Level of the visit: Level 3 Clinical Quality Measures DVT/VTE Risk/Contraindication: Risk Factor Score Per Nursin RFS Level Per Nursing on Admit: 4+=Very High MARSHALL ARRIOLA MD May 16, 2019 10:31
[2019-05-16] MEDS: SENNA W/DOCUSATE (SENOKOT S) TABLET PO SCH ×2 (10:37→20:55)
--- NOTE | 2019-05-16 10:37 | Anesthesia-General Post-Op ---
General Patient Condition Mental Status/LOC: Same as Preop Cardiovascular: Satisfactory Nausea/Vomiting: Absent Respiratory: Satisfactory Pain: Controlled Complications: Absent Post Op Complications Complications None Follow Up Care/Instructions Patient Instructions None needed. Anesthesia/Patient Condition Patient Condition Patient is doing well, no complaints, stable vital signs, no apparent adverse anesthesia problems. No complications reported per nursing. BERNA MCCORMACK CRNA May 16, 2019 10:37
[2019-05-16] MEDS: oxyCODONE/APAP 5/325MG (PERCOCET 5) TABLET PO PRN ×3 (10:38→20:55)
[2019-05-16] MEDS: POLYETHYLENE GLYCOL 17 GM (MIRALAX) PACK PO SCH ×2 (10:38→20:55)
[2019-05-16] MEDS: LACTATED RINGERS 1,000 ML IV PRN (10:45)
--- NOTE | 2019-05-16 11:02 | Progress Note - Hospitalist ---
Subjective HPI/CC On Admission Date Seen by Provider: May 16, 2019 Time Seen by Provider: 09:15 this is an unfortunate 63-year-old white male who was walking in his yard with his when he fell for an unknown reason striking his left elbow, left hip, and left side of his head. He believes his knee just gave way.He sustained a l eft pubic rami fracture and left displaced olecranon fracture. He has been on Coumadin for his chronic atrial fibrillation and his INR remains at 1.8 this am.. The patient was seen this morning by Dr. Abreu in consultation who plans to take him to surgery Wednesday. The patient has no other complaints except related to his injuries. Subjective/Events-last exam Patient had a rough night with pain and required Dilaudid 1 mg 1 dose Fentanyl in between is doing very well Needs bowel regimen since it's been Wednesday since last bowel movement Will provide incentive spirometer Overall doing pretty well Appreciate cardiology consultation for Rayray jama Review of Systems Gastrointestinal: Constipation Musculoskeletal: arm pain, leg pain Objective Exam Vital Signs Vital Signs Date Time Temp Pulse Resp B/P (MAP) Pulse Ox O2 Delivery O2 Flow Rate FiO2 05/16/19 08:00 36.0 106 18 127/72 (90) 99 Nasal Cannula 3.00 Capillary Refill : Less Than 3 SecondsLess Than 3 Seconds General Appearance: No Apparent Distress, WD/WN, Chronically ill Respiratory: Chest Non Tender, Lungs Clear, Normal Breath Sounds, No Accessory Muscle Use, No Respiratory Distress Cardiovascular: No Edema, No Gallop, No JVD, No Murmur, Normal Peripheral Pulses, Irregularly Irregular Neurologic/Psychiatric: Alert, Oriented x3, No Motor/Sensory Deficits, Normal Mood/Affect Results/Procedures Lab Laboratory Tests 05/16/19 06:12 Patient resulted labs reviewed. Imaging: Reviewed Imaging Report Assessment/Plan Assessment and Plan Assess & Plan/Chief Complaint Assessment: Left pelvic fracture Left elbow fracture s/p repair POD # 1 Pacemaker replacement [address] Rock AF w/RVR requiring Dr Nielson consultation Constipation Severe pain requiring Dilaudid IV Plan: Pain control PT/OT IRF Cardiology Bowel regimen Diagnosis/Problems Diagnosis/Problems (1) Status post fall Status: Acute (2) Pacemaker (3) Fracture of left pelvis Status: Acute Qualifiers: Encounter type: initial encounter Pelvic bone location: pubis Sublocation of pubis: superior rim Fracture type: closed Qualified Codes: S32.512A - Fracture of superior rim of left pubis, initial encounter for closed fracture (4) Left elbow fracture Status: Acute Qualifiers: Encounter type: initial encounter Fracture type: closed Qualified Codes: S42.402A - Unspecified fracture of lower end of left humerus, initial encounter for closed fracture (5) Multiple skin tears Status: Acute (6) Atrial fibrillation with rapid ventricular response Status: Acute (7) Smoker Status: Chronic (8) Alcohol dependence Status: Chronic Clinical Quality Measures DVT/VTE Risk/Contraindication: Risk Factor Score Per Nursin RFS Level Per Nursing on Admit: 4+=Very High EDNA SUTTON DO May 16, 2019 11:02
[2019-05-16 12:08] VITALS: BP 113/67
--- NOTE | 2019-05-16 13:33 | Physical Therapy Progress Note ---
Therapy Progress Note Patient adamantly declined PT this p.m. due to uncontrolled left side pain and extreme fatigue. PT attempted to educate and encourage patient to participate with exercises in bed, however, patient continued to decline PT intervention. PT will attempt in a.m. 1 ref ([id number]) BIJAN VILLEGAS PT May 16, 2019 13:32
--- NOTE | 2019-05-16 15:17 | Cardiology Progress Note ---
Cardiology SOAP Progress Note Subjective: No cardiac complaints. Objective: I&O/Vital Signs 05/16/19 05/16/19 05/16/19 05/16/19 04:00 07:00 08:00 08:00 Temp 36.2 36.0 Pulse 101 102 106 Resp 12 18 B/P (MAP) 122/84 (97) 127/72 (90) Pulse Ox 99 99 O2 Delivery Nasal Cannula Nasal Cannula Nasal Cannula O2 Flow Rate 3.00 3.00 2.00 05/16/19 05/16/19 12:08 13:00 Temp 37.0 Pulse 100 94 Resp 18 B/P (MAP) 113/67 (82) Pulse Ox 100 O2 Delivery Nasal Cannula O2 Flow Rate 3.00 05/16/19 00:00 Intake Total 2100 ml Output Total 2080 ml Balance 20 ml Weight (Pounds): 170 Weight (Ounces): 15.0 Weight (Calculated Kilograms): [id number] Constitutional: appears stated age, AAO x 3; No apparent distress; well- developed, well-nourished Respiratory: chest is bilaterally symmetric, lungs clear to auscultation Cardiovascular: irregularly irregular, S1 and S2 Gastrointestional: soft, audible bowel sounds; No spleenomegaly Extremities: normal range of motion, non-tender, normal inspection; No clubbing, No cyanosis; no lower extremity edema bilateral; No significant edema Neurologic/Psychiatric: no motor/sensory deficits, alert, oriented x 3, power is 5/5 both on sides Skin: normal color; No rash, No ulcerations Results/Procedures: Labs Laboratory Tests 05/16/19 06:12: White Blood Count 7.3, Red Blood Count 3.88L, Hemoglobin 11.5L, Hematocrit 35L, Mean Corpuscular Volume 90, Mean Corpuscular Hemoglobin 30, Mean Corpuscular Hemoglobin Concent 33, Red Cell Distribution Width 12.5, Platelet Count 271, Mean Platelet Volume 9.1, Neutrophils (%) (Auto) 71, Lymphocytes (%) (Auto) 11L, Monocytes (%) (Auto) 17H, Eosinophils (%) (Auto) 1, Basophils (%) (Auto) 0, Neutrophils # (Auto) 5.2, Lymphocytes # (Auto) 0.8L, Monocytes # (Auto) 1.3H, Eosinophils # (Auto) 0.1, Basophils # (Auto) 0.0, Sodium Level 136, Potassium Level 3.6, Chloride Level 99, Carbon Dioxide Level 25, Anion Gap 12, Blood Urea Nitrogen 5L, Creatinine 0.69, Estimat Glomerular Filtration Rate > 60, BUN/Creatinine Ratio 7, Glucose Level 86, Calcium Level 8.4L, Corrected Calcium 8.9, Total Bilirubin 1.0, Aspartate Amino Transf (AST/SGOT) 29, Alanine Aminotransferase (ALT/SGPT) 29, Alkaline Phosphatase 85, Total Protein 6.3L, Albumin 3.4 Microbiology 05/14/19 MRSA Screen - Final, Complete MRSA not isolated A/P: Assessment/Dx: Mechanical fall, Status post orthopedic surgery, Cardiac pacemaker, Chronic atrial fibrillation, RVR, On oral anticoagulation, subtherapeutic INR Plan: Mechanical fall, Status post orthopedic surgery, Cardiac pacemaker, no active issues. Chronic atrial fibrillation, currently well controlled. On oral anticoagulation, subtherapeutic INR, continue Coumadin therapy. Thank you for your consultation. Please call me if you have any questions. Tiffanie Nielson MD, FACP, FACC, FSCAI, FHRS, CCDS Interventional Cardiology Cardiac Electrophysiology Vascular Medicine and Endovascular Interventions Breonna NIELSON MD May 16, 2019 15:17
[2019-05-16 16:00] VITALS: BP 121/70
[2019-05-16 20:03] VITALS: BP 102/60
[2019-05-16] MEDS: ENOXAPARIN 40 MG/0.4 ML (LOVENOX) SYR SC SCH (20:55)
[2019-05-17] MEDS: oxyCODONE/APAP 5/325MG (PERCOCET 5) TABLET PO PRN ×3 (01:44→20:46)
[2019-05-17] MEDS: LACTATED RINGERS 1,000 ML IV PRN ×2 (01:44→15:06)
[2019-05-17 04:00] VITALS: BP 128/79
[2019-05-17 08:00] VITALS: BP 130/76
[2019-05-17] MEDS: HYDROcodone/APAP 5 MG/325 MG (LORTAB) TAB PO PRN ×2 (08:10→11:17)
[2019-05-17] MEDS: CYCLOBENZAPRINE 10 MG (FLEXERIL) TAB PO PRN ×2 (08:10→20:46)
[2019-05-17] MEDS: DILTIAZEM 120 MG (CARDIZEM CD) CAP PO SCH (08:11)
[2019-05-17] MEDS: SENNA W/DOCUSATE (SENOKOT S) TABLET PO SCH ×2 (08:18→20:46)
[2019-05-17] MEDS: POLYETHYLENE GLYCOL 17 GM (MIRALAX) PACK PO SCH ×2 (08:18→20:47)
--- NOTE | 2019-05-17 09:38 | Physical Therapy Progress Note ---
Therapy Progress Note Patient adamantly refused this morning due to pain. Will check back after patient gets pain meds. SHEREEN CRENSHAW PT May 17, 2019 09:38
--- NOTE | 2019-05-17 11:22 | Physical Therapy Daily Note ---
PT Daily Note-Current Subjective Patient in bed pre tx, agrees to PT, has 10/10 pain, nurse aide states that it is not quite time for pain meds yet. Appearance Patient BTB post tx with nurse call, phone, tray, in room. Mental Status Patient Orientation: Person, Place, Situation Attachments: IV Transfers SCALE: Activities may be completed with or without assistive devices. 5-Fxniuxxkmn-rpozvbr completes the activity by him/herself with no assistance from a helper. 5-Set-up or Clean-up Assistance-helper sets up or cleans up; patient completes activity. [place] assists only prior to or following the activity. 4-Supervision or Touching Assistance-helper provides verbal cues and/or touching/steadying and/or contact guard assistance as patient completes activity. Assistance may be provided throughout the activity or intermittently. 3-Partial/Moderate Assistance-helper does LESS THAN HALF the effort. [place] lifts, holds or supports trunk or limbs, but provides less than half the effort. 2-Substantial/Maximal Assistance-helper does MORE THAN HALF the effort. [place] lifts or holds trunk or limbs and provides more than half the effort. 7-Jovuqpgxz-esbaub does ALL the effort. Patient does none of the effort to complete the activity. Or, the assistance of 2 or more helpers is required for the patient to complete the activity. If activity was not attempted, code reason: 7-Patient Refused. 9-Not Applicable-not attempted and the patient did not perform the activity before the current illness, exacerbation or injury. 10-Not Attempted due to Environmental Limitations-(lack of equipment, weather restraints, etc.). 88-Not Attempted due to Medical Conditions or Safety Concerns. Roll Left & Right (QC): 4 Sit to Lying (QC): 3 Lying to Sitting/Side of Bed(Q: 4 Sit to Stand (QC): 4 Chair/Uci-jn-Ewvzt Xfer(QC): 4 CGA for sit to stand and transfers, min assist to help get left leg back into bed Weight Bearing Right Lower Extremity: Right Full Weight Bearing Left Lower Extremity: Left Weight Bearing/Tolerated Gait Training Distance: 40' Walk 10 feet (QC): 4 Gait Assistive Device: Walker Matthias Slow, antalgic, crawls his left leg forward with toes Exercises Supine Ex: Ankle pumps, Quad Set Supine Reps: 10 Treatments bed mobility and transfers, ambulation, LE exercise Assessment Current Status: Fair Progress improving ambulation PT Short Term Goals Short Term Goals Time Frame: May 25, 2019 Roll Left & Right: 5 Sit to lyin Lying to sitting on side of be: 5 Sit to stand: 4 Chair/rrr-ww-wpgiu transfer: 4 Toilet transfer: 4 Walk 10 feet: 4 Walk 50 feet with two turns: 4 PT Skilled Nursing Goals Skilled Nursing Goals PT Regulatory Compliance Director Goals Time Frame: Jun 03, 2019 Roll Left & Right (QC): 6 Sit to Lying (QC): 6 Lying-Sitting on Side/Bed(QC): 6 Sit to Stand (QC): 6 Chair/Ota-[place] Xfer(QC): 6 Toilet Transfer (QC): 6 Car Transfer (QC): 6 Does the Patient Walk: Yes Walk 10 feet (QC): 6 Walk 50ft with 2 Turns (QC): 6 Walk 150 ft (QC): 6 Walking 10ft on Uneven Surface: 6 1 Step (curb) (QC): 6 4 Steps (QC): 6 PT Plan Problem List Problem List: Activity Tolerance, Functional Strength, Safety, Balance, Gait, Transfer, Bed Mobility, ROM Treatment/Plan Treatment Plan: Continue Plan of Care Treatment Plan: Bed Mobility, Education, Functional Activity Avis, Functional Strength, Gait, Safety, Therapeutic Exercise, Transfers Treatment Duration: Jun 03, 2019 Frequency: 11 times per week Estimated Hrs Per Day: .5 hour per day Patient and/or Family Agrees t: Yes Safety Risks/Education Patient Education: Gait Training, Transfer Techniques, Reviewed Precautions, Correct Positioning, Safety Issues Teaching Recipient: Patient Teaching Methods: Demonstration, Discussion Response to Teaching: Reinforcement Needed Time/GCodes Time In: 1102 Time Out: 1117 Total Billed Treatment Time: 15 Total Billed Treatment 1 visit FA 15' SHEREEN CRENSHAW PT May 17, 2019 11:22
--- NOTE | 2019-05-17 11:39 | Progress Note - Ortho ---
Progress Note Subjective Date of Exam 05/17/19 Chief Complaint POD#2 open reduction internal fixation of olecranon left elbow with a tension band cable HPI/Events since last exam Mr. Wheeler is doing better. He is having less pain in the elbow. Still pain in the left anterior pelvis extending posteriorly to the SI joint. He is up ambulating almost full weightbearing on the left Review of Systems Reviewed and no additions or changes Allergies: Coded Allergies: cortisone (Unverified Allergy, Mild, 09/18/08) Isosorbide Mononitrate (Unverified Allergy, Unknown, 02/26/11) Home Meds Reported Medications Multivitamin (Multivitamins) 1 Each Capsule, 1 EACH PO DAILY, CAP 05/15/19 Calcium Carbonate/Vitamin D3 (Calcium 600 + Vit D 200 Tablet) 1 Each Tablet, 1 EACH PO DAILY, TAB 05/15/19 Hydrocodone/Acetaminophen (Hydrocodone-Acetamin 5-325 mg) 1 Each Tablet, 1 TAB PO DAILY PRN for PAIN-MODERATE (5-7) 05/15/19 Diltiazem HCl (Diltiazem ER) 120 Mg Capsule.er, 120 MG PO DAILY, CAP 05/02/19 Alendronate Sodium (Fosamax) 70 Mg Tablet, 70 MG PO WED, TAB 05/02/19 Warfarin Sodium (Warfarin Sodium) 5 Mg Tablet, 5 MG PO DAILY, TAB TAKES 5 MG ALONG WITH 1 & 1/2 (1MG) TO EQUAL 6.5MG DAILY 11/28/18 Warfarin Sodium (Warfarin Sodium) 1 Mg Tablet, 1.5 MG PO DAILY, TAB TAKES 1 & 1/2 TABS DAILY ALONG WITH A 5MG TO EQUAL 6.5MG DAILY 11/28/18 Atorvastatin Calcium (Atorvastatin Calcium) 40 Mg Tablet, 40 MG PO HS, TAB 11/28/18 Discontinued Reported Medications Hydrocodone/Acetaminophen ([place] 5-325 Tablet) 1 Each Tablet, 1 TAB PO Q8H PRN for PAIN-MODERATE (5-7) MDD 10 TABS, TAB 05/02/19 Discontinued Scripts Cefuroxime Axetil (Cefuroxime) 500 Mg Tablet, 500 MG PO BID for 5 Days, #10 TAB Prov:FELICIA MACIAS MD FACP FACC CCDS 05/02/19 Objective Exam Constitutional: [] HEENT: [] Neck: [] Cardiovascular: [] Respiratory: [] Gastrointestinal: [] Genitourinary: [] Skin: [] Back/Spine: [] Extremities: [] Left upper extremitybruising posterior arm. Splint is intact. He can move his fingers and thumb and has normal sensation with good capillary refill Continued pain left anterior pelvis and left SI joint Neurologic: [] Psychiatric: [] Hematologic/lymphatic/immunologic: [] Vital Signs Vital Signs Date Time Temp Pulse Resp B/P (MAP) Pulse Ox O2 Delivery O2 Flow Rate FiO2 05/17/19 11:17 36.5 05/17/19 08:44 36.5 05/17/19 08:00 36.2 92 16 130/76 (94) 95 Room Air 05/17/19 08:00 Room Air 05/17/19 07:00 101 05/17/19 04:00 36.5 97 16 128/79 (95) 100 Room Air 05/17/19 01:00 91 05/17/19 00:00 36.0 100 18 96 05/16/19 21:00 Room Air 05/16/19 20:39 95 Nasal Cannula 3.00 05/16/19 20:03 36.0 95 20 102/60 (74) 97 Nasal Cannula 2.50 05/16/19 19:00 104 05/16/19 16:30 97 05/16/19 16:00 36.1 84 18 121/70 (87) 98 Nasal Cannula 2.50 05/16/19 13:00 94 05/16/19 12:08 37.0 100 18 113/67 (82) 100 Nasal Cannula 3.00 I & O 05/17/19 07:00 Intake Total 8520 ml Output Total 5800 ml Balance 2720 ml Lab Results Microbiology 05/14/19 MRSA Screen - Final, Complete MRSA not isolated Assessment and Plan Assessment Improving at 2 days postop with pain in left elbow and continued pain left pelvis Problem List Unchanged Plan Continue with ambulation as tolerated. Plan on dressing change tomorrow with application of a long-arm cast Final Diagonsis Status post open reduction internal fixation olecranon left elbow Level of the visit: Level 3 Clinical Quality Measures DVT/VTE Risk/Contraindication: Risk Factor Score Per Nursin RFS Level Per Nursing on Admit: 4+=Very High MARSHALL ARRIOLA MD May 17, 2019 11:39
[2019-05-17 12:00] VITALS: BP 120/69
--- NOTE | 2019-05-17 12:25 | Progress Note - Hospitalist ---
Subjective HPI/CC On Admission Date Seen by Provider: May 17, 2019 Time Seen by Provider: 10:30 this is an unfortunate 63-year-old white male who was walking in his yard with his when he fell for an unknown reason striking his left elbow, left hip, and left side of his head. He believes his knee just gave way.He sustained a left pubic rami fracture and left displaced olecranon fracture. He has been on Coumadin for his chronic atrial fibrillation and his INR remains at 1.8 this am.. The patient was seen this morning by Dr. Abreu in consultation who plans to take him to surgery Wednesday. The patient has no other complaints except related to his injuries. Subjective/Events-last exam Patient had a large BM Will maintain meds to prevent narcotic bowel condition Will start Fentanyl patch at 25mcg but if becomes oversedated we will need to remove Lortab take every 3 hours so hopefully we will decrease the amount he takes since patch added Checked meds and labs Conferred with RN at bedside IRF tomorrow? Restart Coumadin Review of Systems General: Fatigue Musculoskeletal: arm pain, leg pain, foot pain Objective Exam Vital Signs Vital Signs Date Time Temp Pulse Resp B/P (MAP) Pulse Ox O2 Delivery O2 Flow Rate FiO2 05/17/19 16:03 36.1 99 20 121/72 (88) 96 Room Air 05/16/19 20:39 3.00 Capillary Refill : Less Than 3 SecondsLess Than 3 Seconds General Appearance: No Apparent Distress, WD/WN, Chronically ill Respiratory: Chest Non Tender, Lungs Clear, Normal Breath Sounds, No Accessory Muscle Use, No Respiratory Distress Cardiovascular: Regular Rate, Rhythm, No Edema, No Gallop, No JVD, No Murmur, Normal Peripheral Pulses Extremity: Other Neurologic/Psychiatric: Alert, Oriented x3, No Motor/Sensory Deficits, Normal Mood/Affect Results/Procedures Lab Patient resulted labs reviewed. Imaging: Reviewed Imaging Report Assessment/Plan Assessment and Plan Assess & Plan/Chief Complaint Assessment: Left pelvic fracture Left elbow fracture s/p repair POD # 2 Pacemaker replacement [address] Rock AF w/RVR requiring Dr Nielson consultation Constipation now resolved Severe pain required Dilaudid IV so now placed Fentanyl patch 25mcg and Lortab prn OAC with Coumadin Plan: Pain control with Fentanyl patch 25mcg started today PT/OT IRF Cardiology Bowel regimen to maintain Restart Coumadin Diagnosis/Problems Diagnosis/Problems (1) Status post fall Status: Acute (2) Pacemaker (3) Fracture of left pelvis Status: Acute Qualifiers: Encounter type: initial encounter Pelvic bone location: pubis Sublocation of pubis: superior rim Fracture type: closed Qualified Codes: S32.512A - Fracture of superior rim of left pubis, initial encounter for closed fracture (4) Left elbow fracture Status: Acute Qualifiers: Encounter type: initial encounter Fracture type: closed Qualified Codes: S42.402A - Unspecified fracture of lower end of left humerus, initial encounter for closed fracture (5) Multiple skin tears Status: Acute (6) Atrial fibrillation with rapid ventricular response Status: Acute (7) Smoker Status: Chronic (8) Alcohol dependence Status: Chronic Clinical Quality Measures DVT/VTE Risk/Contraindication: Risk Factor Score Per Nursin RFS Level Per Nursing on Admit: 4+=Very High EDNA SUTTON DO May 17, 2019 12:25
[2019-05-17] MEDS ORDERED: fentaNYL PATCH 25 MCG (DURAGESIC) TD SCH (13:00)
--- NOTE | 2019-05-17 13:34 | NUR ---
Report received from Kimberley CAMPO at this time, will assume care of patient at this time.
--- NOTE | 2019-05-17 13:50 | Physical Therapy Daily Note ---
PT Daily Note-Current Subjective Patient in bed pre tx, agrees to PT, patient states he has even more pain this afternoon than he did this morning (02/23) but is still willing to participate. Appearance Patient in bed post tx with nurse call, phone, tray, all needs met. Nurse in room to give pain meds. Mental Status Patient Orientation: Person, Place, Situation Transfers SCALE: Activities may be completed with or without assistive devices. 6-Nrmrpflqxj-ymfiqcm completes the activity by him/herself with no assistance from a helper. 5-Set-up or Clean-up Assistance-helper sets up or cleans up; patient completes activity. Jewell assists only prior to or following the activity. 4-Supervision or Touching Assistance-helper provides verbal cues and/or touching/steadying and/or contact guard assistance as patient completes activity. Assistance may be provided throughout the activity or intermittently. 3-Partial/Moderate Assistance-helper does LESS THAN HALF the effort. Jewell lifts, holds or supports trunk or limbs, but provides less than half the effort. 2-Substantial/Maximal Assistance-helper does MORE THAN HALF the effort. Jewell l ifts or holds trunk or limbs and provides more than half the effort. 1-Qeykdaaqu-zfsyeg does ALL the effort. Patient does none of the effort to complete the activity. Or, the assistance of 2 or more helpers is required for the patient to complete the activity. If activity was not attempted, code reason: 7-Patient Refused. 9-Not Applicable-not attempted and the patient did not perform the activity before the current illness, exacerbation or injury. 10-Not Attempted due to Environmental Limitations-(lack of equipment, weather restraints, etc.). 88-Not Attempted due to Medical Conditions or Safety Concerns. Roll Left & Right (QC): 4 Sit to Lying (QC): 3 Lying to Sitting/Side of Bed(Q: 4 Sit to Stand (QC): 4 Chair/Exw-zl-Lbgpt Xfer(QC): 4 CGA except for sit to supine (Lucina) Weight Bearing Right Lower Extremity: Right Full Weight Bearing Left Lower Extremity: Left Weight Bearing/Tolerated Gait Training Distance: 45' Walk 10 feet (QC): 4 Gait Assistive Device: FWW CGA, slow, antalgic, crawls foot forward most of the time with his toes, keep hemiwalker in front instead of the side even with cues, patient has a lot of pain and cries and moans during ambulation. BTB afterward. Treatments bed mobility and transfers, ambulation Assessment Current Status: Fair Progress improving ambulation but severe pain PT Short Term Goals Short Term Goals Time Frame: May 25, 2019 Roll Left & Right: 5 Sit to lyin Lying to sitting on side of be: 5 Sit to stand: 4 Chair/zov-fx-ymsnn transfer: 4 Toilet transfer: 4 Walk 10 feet: 4 Walk 50 feet with two turns: 4 PT Rn Wound Care Goals Group Home Goals PT Rn Wound Care Goals Time Frame: Jun 03, 2019 Roll Left & Right (QC): 6 Sit to Lying (QC): 6 Lying-Sitting on Side/Bed(QC): 6 Sit to Stand (QC): 6 Chair/Xzd-wd-Guvnh Xfer(QC): 6 Toilet Transfer (QC): 6 Car Transfer (QC): 6 Does the Patient Walk: Yes Walk 10 feet (QC): 6 Walk 50ft with 2 Turns (QC): 6 Walk 150 ft (QC): 6 Walking 10ft on Uneven Surface: 6 1 Step (curb) (QC): 6 4 Steps (QC): 6 PT Plan Problem List Problem List: Activity Tolerance, Functional Strength, Safety, Balance, Gait, Transfer, Bed Mobility, ROM Treatment/Plan Treatment Plan: Continue Plan of Care Treatment Plan: Bed Mobility, Concurrent Therapy, Education, Functional Activity Avsi, Functional Strength, Gait, Safety, Therapeutic Exercise, Transfers Treatment Duration: Jun 03, 2019 Frequency: 11 times per week Estimated Hrs Per Day: .5 hour per day Patient and/or Family Agrees t: Yes Safety Risks/Education Patient Education: Gait Training, Transfer Techniques, Reviewed Precautions, Correct Positioning, Safety Issues Teaching Recipient: Patient Teaching Methods: Demonstration, Discussion Response to Teaching: Reinforcement Needed Time/GCodes Time In: 1334 Time Out: 1345 Total Billed Treatment Time: 11 Total Billed Treatment 1 visit GT SHEREEN BUSTAMANTE PT May 17, 2019 13:50
[2019-05-17] MEDS: HYDROmorphone 2 MG/ML VIAL (DILAUDID) IV PRN (15:56)
--- NOTE | 2019-05-17 15:57 | Cardiology Progress Note ---
Cardiology SOAP Progress Note Subjective: Complaining of headache. Objective: I&O/Vital Signs 05/17/19 05/17/19 05/17/19 05/17/19 04:00 07:00 08:00 08:00 Temp 36.5 36.2 Pulse 97 101 92 Resp 16 16 B/P (MAP) 128/79 (95) 130/76 (94) Pulse Ox 100 95 O2 Delivery Room Air Room Air Room Air 05/17/19 05/17/19 05/17/19 05/17/19 08:44 11:17 11:40 12:00 Temp 36.5 36.5 36.5 35.7 Pulse 87 Resp 18 B/P (MAP) 120/69 (86) Pulse Ox 96 O2 Delivery Room Air 05/17/19 13:00 Pulse 79 05/17/19 00:00 Intake Total 5220 ml Output Total 5800 ml Balance -580 ml Weight (Pounds): 170 Weight (Ounces): 15.0 Weight (Calculated Kilograms): [id number] Constitutional: appears stated age, AAO x 3; No apparent distress; well- developed, well-nourished Respiratory: chest is bilaterally symmetric, lungs clear to auscultation Cardiovascular: irregularly irregular, S1 and S2 Gastrointestional: soft, audible bowel sounds; No spleenomegaly Extremities: normal range of motion, non-tender, normal inspection; No clubbing, No cyanosis; no lower extremity edema bilateral; No significant edema Neurologic/Psychiatric: no motor/sensory deficits, alert, oriented x 3, power is 5/5 both on sides Skin: normal color; No rash, No ulcerations Results/Procedures: Labs Microbiology 05/14/19 MRSA Screen - Final, Complete MRSA not isolated A/P: Assessment/Dx: Mechanical fall, Status post orthopedic surgery, Cardiac pacemaker, Chronic atrial fibrillation, RVR, On oral anticoagulation, subtherapeutic INR Plan: Mechanical fall, Status post orthopedic surgery, Cardiac pacemaker, no active issues. Chronic atrial fibrillation, currently well controlled. On oral anticoagulation, continue Coumadin therapy. Check INR. Thank you for your consultation. Please call me if you have any questions. Tiffanie Nielson MD, FACP, FACC, FSCAI, FHRS, CCDS Interventional Cardiology Cardiac Electrophysiology Vascular Medicine and Endovascular Interventions Breonna NIELSON MD May 17, 2019 15:57
[2019-05-17 16:03] VITALS: BP 121/72
[2019-05-17] MEDS ORDERED: warFARin 1 MG (COUMADIN) TAB PO SCH (18:00)
[2019-05-17] MEDS ORDERED: warFARin 5 MG (COUMADIN) TAB PO SCH (18:00)
[2019-05-17 19:36] VITALS: BP 106/68
[2019-05-17] MEDS: fentaNYL INJECTION 100 MCG/2 ML AMP IV PRN (20:47)
[2019-05-17] MEDS: ENOXAPARIN 40 MG/0.4 ML (LOVENOX) SYR SC SCH (20:47)
[2019-05-18 00:15] VITALS: BP 104/69
[2019-05-18] MEDS: MULTIVIT W/MINERALS TAB (THERAGRAN M) PO SCH (04:29)
[2019-05-18] MEDS: HYDROcodone/APAP 5 MG/325 MG (LORTAB) TAB PO PRN ×3 (04:29→20:34)
[2019-05-18] MEDS: HYDROmorphone 2 MG/ML VIAL (DILAUDID) IV PRN (04:30)
[2019-05-18] MEDS: LACTATED RINGERS 1,000 ML IV PRN (04:30)
[2019-05-18 04:45] VITALS: BP 120/80
[2019-05-18 06:10] LABS: BASOPHILS % (AUTO) 0 % (0-10); EOSINOPHILS # (AUTO) 0.1 10^3/uL (0.0-0.3); EOSINOPHILS % (AUTO) 2 % (0-10); HEMATOCRIT 30 % (40-54); HEMOGLOBIN 9.9 G/DL (13.3-17.7); LYMPHOCYTES # (AUTO) 1.2 X 10^3 (1.0-4.0); LYMPHOCYTES % (AUTO) 16 % (12-44); MEAN CORPUSCULAR HEMOGLOBIN 30 PG (25-34); MEAN CORPUSCULAR HGB CONC 33 G/DL (32-36); MEAN CORPUSCULAR VOLUME 90 FL (80-99); MEAN PLATELET VOLUME 9.5 FL (7.4-10.4); MONOCYTES # (AUTO) 1.3 X 10^3 (0.0-1.0); MONOCYTES % (AUTO) 17 % (0-12); NEUTROPHILS % (AUTO) 65 % (42-75); PLATELET COUNT 340 10^3/uL (130-400); RED CELL DISTRIBUTION WIDTH 12.5 % (10.0-14.5); WHITE BLOOD COUNT 7.6 10^3/uL (4.3-11.0)
[2019-05-18 06:32] LABS: PROTHROMBIN TIME PATIENT 13.1 SEC (12.2-14.7)
[2019-05-18 06:33] LABS: ALANINE AMINOTRANSFERASE 44 U/L (0-55); ALBUMIN 3.2 GM/DL (3.2-4.5); ALKALINE PHOSPHATASE 119 U/L (40-136); BILIRUBIN,TOTAL 0.6 MG/DL (0.1-1.0); BUN/CREATININE RATIO 11; CALCIUM 8.8 MG/DL (8.5-10.1); CARBON DIOXIDE 22 MMOL/L (21-32); CHLORIDE 103 MMOL/L (98-107); CREATININE SERUM 0.66 MG/DL (0.60-1.30); GFR ESTIMATED > 60; GLUCOSE 91 MG/DL (70-105); SODIUM 137 MMOL/L (135-145); TOTAL PROTEIN 6.5 GM/DL (6.4-8.2)
[2019-05-18 07:34] VITALS: BP 119/76
[2019-05-18] MEDS: SENNA W/DOCUSATE (SENOKOT S) TABLET PO SCH ×2 (08:31→20:34)
[2019-05-18] MEDS: POLYETHYLENE GLYCOL 17 GM (MIRALAX) PACK PO SCH ×2 (08:31→20:33)
[2019-05-18] MEDS: CALCIUM CARB + VIT D 600 MG (CALCARB + D) TAB PO SCH (08:31)
[2019-05-18] MEDS: DILTIAZEM 120 MG (CARDIZEM CD) CAP PO SCH (08:31)
--- NOTE | 2019-05-18 09:30 | Physical Therapy Daily Note ---
PT Daily Note-Current Subjective Patient in bed pre tx, agrees to PT, has 6/10 pain. Appearance Patient in bed post tx with nurse call, phone, tray, in room. Mental Status Patient Orientation: Normal For Age Attachments: IV Transfers SCALE: Activities may be completed with or without assistive devices. 2-Votowhxwbk-fbsjfbm completes the activity by him/herself with no assistance from a helper. 5-Set-up or Clean-up Assistance-helper sets up or cleans up; patient completes activity. Frederic assists only prior to or following the activity. 4-Supervision or Touching Assistance-helper provides verbal cues and/or touching/steadying and/or contact guard assistance as patient completes activity. Assistance may be provided throughout the activity or intermittently. 3-Partial/Moderate Assistance-helper does LESS THAN HALF the effort. Frederic lifts, holds or supports trunk or limbs, but provides less than half the effort. 2-Substantial/Maximal Assistance-helper does MORE THAN HALF the effort. Frederic lifts or holds trunk or limbs and provides more than half the effort. 7-[place]-ffregw does ALL the effort. Patient does none of the effort to complete the activity. Or, the assistance of 2 or more helpers is required for the patient to complete the activity. If activity was not attempted, code reason: 7-Patient Refused. 9-Not Applicable-not attempted and the patient did not perform the activity before the current illness, exacerbation or injury. 10-Not Attempted due to Environmental Limitations-(lack of equipment, weather restraints, etc.). 88-Not Attempted due to Medical Conditions or Safety Concerns. Roll Left & Right (QC): 6 Sit to Lying (QC): 3 Lying to Sitting/Side of Bed(Q: 6 Sit to Stand (QC): 4 Chair/Vgh-cd-Wzdmx Xfer(QC): 4 slow but steady transfers, needs assist with both legs getting back into bed Weight Bearing Right Lower Extremity: Right Full Weight Bearing Left Lower Extremity: Left Weight Bearing/Tolerated Gait Training Distance: 100' Walk 10 feet (QC): 4 Walk 50 ft with 2 Turns(QC): 4 Gait Assistive Device: Walker Matthias SBA, slow but steady ambulation, better step through on left leg Exercises Supine Ex: Ankle pumps, Quad Set, Glut sets Supine Reps: 15 Treatments bed mobility and transfers, ambulation, LE exercise Assessment Current Status: Fair Progress improving ambulation and transfers PT Short Term Goals Short Term Goals Time Frame: May 25, 2019 Roll Left & Right: 5 Sit to lyin Lying to sitting on side of be: 5 Sit to stand: 4 Chair/ggl-dm-vuluo transfer: 4 Toilet transfer: 4 Walk 10 feet: 4 Walk 50 feet with two turns: 4 PT Group Home Goals Fence Post Driver Goals PT Group Home Goals Time Frame: Jun 03, 2019 Roll Left & Right (QC): 6 Sit to Lying (QC): 6 Lying-Sitting on Side/Bed(QC): 6 Sit to Stand (QC): 6 Chair/Oha-dl-Muoai Xfer(QC): 6 Toilet Transfer (QC): 6 Car Transfer (QC): 6 Does the Patient Walk: Yes Walk 10 feet (QC): 6 Walk 50ft with 2 Turns (QC): 6 Walk 150 ft (QC): 6 Walking 10ft on Uneven Surface: 6 1 Step (curb) (QC): 6 4 Steps (QC): 6 PT Plan Problem List Problem List: Activity Tolerance, Functional Strength, Safety, Balance, Gait, Transfer, Bed Mobility, ROM Treatment/Plan Treatment Plan: Continue Plan of Care Treatment Plan: Bed Mobility, Concurrent Therapy, Education, Functional Activity Avis, Functional Strength, Gait, Safety, Therapeutic Exercise, Transfers Treatment Duration: Jun 03, 2019 Frequency: 11 times per week Estimated Hrs Per Day: .5 hour per day Patient and/or Family Agrees t: Yes Safety Risks/Education Patient Education: Gait Training, Transfer Techniques, Correct Positioning, Safety Issues Teaching Recipient: Patient Teaching Methods: Demonstration, Discussion Response to Teaching: Reinforcement Needed Time/GCodes Time In: 54 Time Out: 907 Total Billed Treatment Time: 14 Total Billed Treatment 1 visit FA SHEREEN CHAVARRIA PT May 18, 2019 09:30
--- NOTE | 2019-05-18 10:45 | Progress Note - Hospitalist ---
Subjective HPI/CC On Admission Date Seen by Provider: May 18, 2019 Time Seen by Provider: 09:30 this is an unfortunate 63-year-old white male who was walking in his yard with his when he fell for an unknown reason striking his left elbow, left hip, and left side of his head. He believes his knee just gave way.He sustained a le ft pubic rami fracture and left displaced olecranon fracture. He has been on Coumadin for his chronic atrial fibrillation and his INR remains at 1.8 this am.. The patient was seen this morning by Dr. Abreu in consultation who plans to take him to surgery Wednesday. The patient has no other complaints except related to his injuries. Subjective/Events-last exam Fentanyl at 25 Micrograms has worked very well for him. INR 1.0 Coumadin was held. Hydrocodone is needed. Bowels are moving daily. Inpatient rehab candidate but apparently he wants to go home with outpatient PT. Review of Systems General: Fatigue Musculoskeletal: arm pain, back pain, leg pain Objective Exam Vital Signs Vital Signs Date Time Temp Pulse Resp B/P (MAP) Pulse Ox O2 Delivery O2 Flow Rate FiO2 05/18/19 20:02 36.3 94 20 105/73 (84) 95 Room Air 05/17/19 20:00 3.00 Capillary Refill : Less Than 3 SecondsLess Than 3 Seconds General Appearance: No Apparent Distress, WD/WN Respiratory: Chest Non Tender, Lungs Clear, Normal Breath Sounds, No Accessory Muscle Use, No Respiratory Distress Cardiovascular: Regular Rate, Rhythm, No Edema, No Gallop, No JVD, No Murmur, Normal Peripheral Pulses Neurologic/Psychiatric: Alert, Oriented x3, No Motor/Sensory Deficits, Normal Mood/Affect Results/Procedures Lab Laboratory Tests 05/18/19 05:24 Patient resulted labs reviewed. Imaging: Reviewed Imaging Report Assessment/Plan Assessment and Plan Assess & Plan/Chief Complaint Assessment: Left pelvic fracture Left elbow fracture s/p repair POD # 3 Pacemaker replacement [address] Rock AF w/RVR requiring Dr Nielson consultation Constipation now resolved Severe pain required Dilaudid IV so now placed Fentanyl patch 25mcg and Lortab prn OAC with Coumadin Plan: Pain control with Fentanyl patch 25mcg started yesterday PT/OT IRF Cardiology Bowel regimen to maintain Restart Coumadin Diagnosis/Problems Diagnosis/Problems (1) Status post fall Status: Acute (2) Pacemaker (3) Fracture of left pelvis Status: Acute Qualifiers: Encounter type: initial encounter Pelvic bone location: pubis Sublocation of pubis: superior rim Fracture type: closed Qualified Codes: S32.512A - Fracture of superior rim of left pubis, initial encounter for closed fracture (4) Left elbow fracture Status: Acute Qualifiers: Encounter type: initial encounter Fracture type: closed Qualified Codes: S42.402A - Unspecified fracture of lower end of left humerus, initial encounter for closed fracture (5) Multiple skin tears Status: Acute (6) Atrial fibrillation with rapid ventricular response Status: Acute (7) Smoker Status: Chronic (8) Alcohol dependence Status: Chronic Clinical Quality Measures DVT/VTE Risk/Contraindication: Risk Factor Score Per Nursin RFS Level Per Nursing on Admit: 4+=Very High EDNA SUTTON DO May 18, 2019 10:45
--- NOTE | 2019-05-18 11:27 | Progress Note - Ortho ---
Progress Note Subjective Date of Exam 05/18/19 Chief Complaint POD#4 open reduction internal fixation olecranon fracture left elbow with a tension band cable HPI/Events since last exam Mr. Wheeler is doing much better. His pain is much less than both the elbow and hip. He's been ambulating the hallway without any problems for weight on the left. Review of Systems Reviewed and no additions or changes Allergies: Coded Allergies: cortisone (Unverified Allergy, Mild, 09/18/08) Isosorbide Mononitrate (Unverified Allergy, Unknown, 02/26/11) Home Meds Reported Medications Multivitamin (Multivitamins) 1 Each Capsule, 1 EACH PO DAILY, CAP 05/15/19 Calcium Carbonate/Vitamin D3 (Calcium 600 + Vit D 200 Tablet) 1 Each Tablet, 1 EACH PO DAILY, TAB 05/15/19 Hydrocodone/Acetaminophen (Hydrocodone-Acetamin 5-325 mg) 1 Each Tablet, 1 TAB PO DAILY PRN for PAIN-MODERATE (5-7) 05/15/19 Diltiazem HCl (Diltiazem ER) 120 Mg Capsule.er, 120 MG PO DAILY, CAP 05/02/19 Alendronate Sodium (Fosamax) 70 Mg Tablet, 70 MG PO WED, TAB 05/02/19 Warfarin Sodium (Warfarin Sodium) 5 Mg Tablet, 5 MG PO DAILY, TAB TAKES 5 MG ALONG WITH 1 & 1/2 (1MG) TO EQUAL 6.5MG DAILY 11/28/18 Warfarin Sodium (Warfarin Sodium) 1 Mg Tablet, 1.5 MG PO DAILY, TAB TAKES 1 & 1/2 TABS DAILY ALONG WITH A 5MG TO EQUAL 6.5MG DAILY 11/28/18 Atorvastatin Calcium (Atorvastatin Calcium) 40 Mg Tablet, 40 MG PO HS, TAB 11/28/18 Discontinued Reported Medications Hydrocodone/Acetaminophen ([place] 5-325 Tablet) 1 Each Tablet, 1 TAB PO Q8H PRN for PAIN-MODERATE (5-7) MDD 10 TABS, TAB 05/02/19 Discontinued Scripts Cefuroxime Axetil (Cefuroxime) 500 Mg Tablet, 500 MG PO BID for 5 Days, #10 TAB Prov:FELICIA MACIAS MD FACP FACC CCDS 05/02/19 Objective Exam Constitutional: [] HEENT: [] Neck: [] Cardiovascular: [] Respiratory: [] Gastrointestinal: [] Genitourinary: [] Skin: [] Back/Spine: [] Extremities: [Good motion left hip with mild pain anterior pelvis. Minimal pain SI joint left His splint was removed from the left arm. His incision is healing well without redness or drainage. The abrasions over the dorsum of the hand are healing well without redness or drainage. He has normal sensation to the finger and thumb with good capillary refill and good radial pulse] Neurologic: [] Psychiatric: [] Hematologic/lymphatic/immunologic: [] Vital Signs Vital Signs Date Time Temp Pulse Resp B/P (MAP) Pulse Ox O2 Delivery O2 Flow Rate FiO2 05/18/19 08:00 Room Air 05/18/19 07:34 35.8 109 18 119/76 (90) 97 Room Air 05/18/19 07:00 92 05/18/19 05:10 36.2 05/18/19 04:45 36.2 100 18 120/80 (93) 96 Room Air 05/18/19 04:30 36.3 05/18/19 01:01 93 05/18/19 00:15 36.3 91 20 104/69 (81) 97 Room Air 05/17/19 21:41 35.8 05/17/19 21:16 35.8 05/17/19 20:47 35.8 05/17/19 20:00 97 Room Air 3.00 05/17/19 19:36 35.8 89 20 106/68 (81) 97 Room Air 05/17/19 19:00 105 05/17/19 16:03 36.1 99 20 121/72 (88) 96 Room Air 05/17/19 13:00 79 05/17/19 12:00 35.7 87 18 120/69 (86) 96 Room Air 05/17/19 11:40 36.5 I & O 05/18/19 07:00 Intake Total 3910 ml Output Total 3800 ml Balance 110 ml Lab Results Laboratory Tests 05/18/19 05:24: White Blood Count 7.6, Red Blood Count 3.32L, Hemoglobin 9.9L, Hematocrit 30L, Mean Corpuscular Volume 90, Mean Corpuscular Hemoglobin 30, Mean Corpuscular Hemoglobin Concent 33, Red Cell Distribution Width 12.5, Platelet Count 340, Mean Platelet Volume 9.5, Neutrophils (%) (Auto) 65, Lymphocytes (%) (Auto) 16, Monocytes (%) (Auto) 17H, Eosinophils (%) (Auto) 2, Basophils (%) (Auto) 0, Neutrophils # (Auto) 5.0, Lymphocytes # (Auto) 1.2, Monocytes # (Auto) 1.3H, Eosinophils # (Auto) 0.1, Basophils # (Auto) 0.0, Prothrombin Time 13.1, INR Comment 1.0, Sodium Level 137, Potassium Level 4.0, Chloride Level 103, Carbon Dioxide Level 22, Anion Gap 12, Blood Urea Nitrogen 7, Creatinine 0.66, Estimat Glomerular Filtration Rate > 60, BUN/Creatinine Ratio 11, Glucose Level 91, Calcium Level 8.8, Corrected Calcium 9.4, Total Bilirubin 0.6, Aspartate Amino Transf (AST/SGOT) 39H, Alanine Aminotransferase (ALT/SGPT) 44, Alkaline Phosphatase 119, Total Protein 6.5, Albumin 3.2 Microbiology 05/14/19 MRSA Screen - Final, Complete MRSA not isolated Assessment and Plan Assessment Doing well 4 days postop Problem List Unchanged Plan His wound was redressed with antibiotic ointment, Adaptic, 4 x 4's and then a long-arm cast was applied. He had no pain with motion of the wrist so I just cast him from just above the wrist above the elbow. Continue with jules-walker ambulation weightbearing as tolerated on the left. I talked to him about options for discharge. He thinks he can go home and do fine. No problems with that. Final Diagonsis Status post open reduction internal fixation olecranon fracture left elbow Superior pubic rami fracture left Sprain left sacroiliac joint Level of the visit: Level 3 Clinical Quality Measures DVT/VTE Risk/Contraindication: Risk Factor Score Per Nursin RFS Level Per Nursing on Admit: 4+=Very High MARSHALL ARRIOLA MD May 18, 2019 11:27
[2019-05-18 11:35] VITALS: BP 119/76
[2019-05-18] MEDS: oxyCODONE/APAP 5/325MG (PERCOCET 5) TABLET PO PRN (12:47)
[2019-05-18] MEDS: CYCLOBENZAPRINE 10 MG (FLEXERIL) TAB PO PRN ×2 (12:48→20:33)
--- NOTE | 2019-05-18 15:31 | NUR ---
IRF Met with patient and spouse to discuss details related to inpatient rehabilitation. Patient states he has historically received outpatient therapy from [facility], and prefers to receive their services at dismissal. CM/SS notified.
--- NOTE | 2019-05-18 15:35 | Physical Therapy Daily Note ---
PT Daily Note-Current Subjective Pt laying Supine in bed upon arrival. Pt agrees to PT. Pain Numeric Pain Scale: 10-Worst Possible Pain Location Body Site: Pelvic Pain Description: Ache Mental Status Patient Orientation: Person, Place, Time, Situation Attachments: Other-See Comments (L UE in sling) Transfers SCALE: Activities may be completed with or without assistive devices. 5-Ngxvrwnvri-qfxahhc completes the activity by him/herself with no assistance from a helper. 5-Set-up or Clean-up Assistance-helper sets up or cleans up; patient completes activity. Home assists only prior to or following the activity. 4-Supervision or Touching Assistance-helper provides verbal cues and/or touching/steadying and/or contact guard assistance as patient completes activity. Assistance may be provided throughout the activity or intermittently. 3-Partial/Moderate Assistance-helper does LESS THAN HALF the effort. Home lifts, holds or supports trunk or limbs, but provides less than half the effort. 2-Substantial/Maximal Assistance-helper does MORE THAN HALF the effort. Home lifts or holds trunk or limbs and provides more than half the effort. 2-Zzwwkgtwf-zfcinr does ALL the effort. Patient does none of the effort to complete the activity. Or, the assistance of 2 or more helpers is required for the patient to complete the activity. If activity was not attempted, code reason: 7-Patient Refused. 9-Not Applicable-not attempted and the patient did not perform the activity before the current illness, exacerbation or injury. 10-Not Attempted due to Environmental Limitations-(lack of equipment, weather restraints, etc.). 88-Not Attempted due to Medical Conditions or Safety Concerns. Sit to Lying (QC): 4 Lying to Sitting/Side of Bed(Q: 4 Sit to Stand (QC): 4 Weight Bearing Right Lower Extremity: Right Full Weight Bearing Left Lower Extremity: Left Weight Bearing/Tolerated Gait Training Does the Patient Walk?: Yes Distance: 100' Walk 10 feet (QC): 4 Walk 50 ft with 2 Turns(QC): 4 Gait Persons Needed: 1 Gait Assistive Device: Walker Matthias Pt walks with slow but steady nidhi. Pt is fatigued by end of walk. Treatments Pt transfers from supine to EOB using bed rails then sit to standing at CGA-Min A. Pt ambulates in hallway with a couple short standing RB before returning to room to rest. Pt needs assist to lift B LE into bed. Pt laying Supine in bed at end of Rx. All needs met. SW arrives to visit with pt. Assessment Current Status: Good Progress Pt does not let pain limit Rx. PT Short Term Goals Short Term Goals Time Frame: May 25, 2019 Roll Left & Right: 5 Sit to lyin Lying to sitting on side of be: 5 Sit to stand: 4 Chair/pjy-qm-bnwiw transfer: 4 Toilet transfer: 4 Walk 10 feet: 4 Walk 50 feet with two turns: 4 PT Manager Reimbursement Goals Manager Reimbursement Goals PT Manager Reimbursement Goals Time Frame: Jun 03, 2019 Roll Left & Right (QC): 6 Sit to Lying (QC): 6 Lying-Sitting on Side/Bed(QC): 6 Sit to Stand (QC): 6 Chair/Hhx-yq-Gtssx Xfer(QC): 6 Toilet Transfer (QC): 6 Car Transfer (QC): 6 Does the Patient Walk: Yes Walk 10 feet (QC): 6 Walk 50ft with 2 Turns (QC): 6 Walk 150 ft (QC): 6 Walking 10ft on Uneven Surface: 6 1 Step (curb) (QC): 6 4 Steps (QC): 6 PT Plan Problem List Problem List: Activity Tolerance, Functional Strength, Safety, Gait, Transfer Treatment/Plan Treatment Plan: Continue Plan of Care Treatment Plan: Bed Mobility, Concurrent Therapy, Education, Functional Activity Avis, Functional Strength, Gait, Safety, Therapeutic Exercise, Transfers Treatment Duration: Jun 03, 2019 Frequency: 11 times per week Estimated Hrs Per Day: .5 hour per day Patient and/or Family Agrees t: Yes Safety Risks/Education Patient Education: Gait Training, Transfer Techniques, Correct Positioning, Safety Issues Teaching Recipient: Patient Teaching Methods: Discussion Response to Teaching: Verbalize Understanding Time/GCodes Time In: 1445 Time Out: 1500 Total Billed Treatment Time: 15 Total Billed Treatment 1, GT (15m) MIRTA SHIN COMPLEX MANAGER May 18, 2019 15:35
[2019-05-18 16:00] VITALS: BP 111/74
--- NOTE | 2019-05-18 16:34 | Cardiology Progress Note ---
Cardiology SOAP Progress Note Subjective: No cardiac complaints. Improved headache. Objective: I&O/Vital Signs 05/18/19 05/18/19 05/18/19 05/18/19 04:45 05:10 07:00 07:34 Temp 36.2 36.2 35.8 Pulse 100 92 109 Resp 18 18 B/P (MAP) 120/80 (93) 119/76 (90) Pulse Ox 96 97 O2 Delivery Room Air Room Air 05/18/19 05/18/19 05/18/19 08:00 11:35 12:21 Temp 35.3 Pulse 103 130 Resp 20 B/P (MAP) 119/76 (90) Pulse Ox 95 O2 Delivery Room Air Room Air 05/18/19 00:00 Intake Total 3080 ml Output Total 2650 ml Balance 430 ml Weight (Pounds): 170 Weight (Ounces): 15.0 Weight (Calculated Kilograms): 77.123219 Constitutional: appears stated age, AAO x 3; No apparent distress; well-develo ped, well-nourished Respiratory: chest is bilaterally symmetric, lungs clear to auscultation Cardiovascular: irregularly irregular, S1 and S2 Gastrointestional: soft, audible bowel sounds; No spleenomegaly Extremities: normal range of motion, non-tender, normal inspection; No clubbing, No cyanosis; no lower extremity edema bilateral; No significant edema Neurologic/Psychiatric: no motor/sensory deficits, alert, oriented x 3, power is 5/5 both on sides Skin: normal color; No rash, No ulcerations Results/Procedures: Labs Laboratory Tests 05/18/19 05:24: White Blood Count 7.6, Red Blood Count 3.32L, Hemoglobin 9.9L, Hematocrit 30L, Mean Corpuscular Volume 90, Mean Corpuscular Hemoglobin 30, Mean Corpuscular Hemoglobin Concent 33, Red Cell Distribution Width 12.5, Platelet Count 340, Mean Platelet Volume 9.5, Neutrophils (%) (Auto) 65, Lymphocytes (%) (Auto) 16, Monocytes (%) (Auto) 17H, Eosinophils (%) (Auto) 2, Basophils (%) (Auto) 0, Neutrophils # (Auto) 5.0, Lymphocytes # (Auto) 1.2, Monocytes # (Auto) 1.3H, Eosinophils # (Auto) 0.1, Basophils # (Auto) 0.0, Prothrombin Time 13.1, INR Comment 1.0, Sodium Level 137, Potassium Level 4.0, Chloride Level 103, Carbon Dioxide Level 22, Anion Gap 12, Blood Urea Nitrogen 7, Creatinine 0.66, Estimat Glomerular Filtration Rate > 60, BUN/Creatinine Ratio 11, Glucose Level 91, Calcium Level 8.8, Corrected Calcium 9.4, Total Bilirubin 0.6, Aspartate Amino Transf (AST/SGOT) 39H, Alanine Aminotransferase (ALT/SGPT) 44, Alkaline Phosphatase 119, Total Protein 6.5, Albumin 3.2 Microbiology 05/14/19 MRSA Screen - Final, Complete MRSA not isolated A/P: Assessment/Dx: Mechanical fall, Status post orthopedic surgery, Cardiac pacemaker, Chronic atrial fibrillation, RVR, On oral anticoagulation, subtherapeutic INR Plan: Mechanical fall, Status post orthopedic surgery, Cardiac pacemaker, no active issues. Chronic atrial fibrillation, currently well controlled. On oral anticoagulation, continue Coumadin therapy. Check INR. Thank you for your consultation. Please call me if you have any questions. Tiffanie Nielson MD, FACP, FACC, FSCAI, FHRS, CCDS Interventional Cardiology Cardiac Electrophysiology Vascular Medicine and Endovascular Interventions Breonna NIELSON MD May 18, 2019 16:34
--- NOTE | 2019-05-18 19:45 | NUR ---
SPOKE WITH DR. SUTTON TO CLARIFY ORDERS ON PT. THIS RN ASKED IF PT WAS SUPPOSED TO BE ON COUMADIN AND LOVENOX. ALSO INFORMED DR. SUTTON THAT PT WAS ON LORATAB Q3HRS AND PERCOCET Q4HRS PRN, I ASKED IF SHE WANTED BOTH ON BOARD. TELEPHONE ORDERS RECEIVED TO DC PERCOCET AND THE CLARIFICATION THAT THE LOVENOX IS THE BRIDGE UNTIL INR THERAPEUTIC.
[2019-05-18 20:02] VITALS: BP 105/73
[2019-05-18] MEDS: ENOXAPARIN 40 MG/0.4 ML (LOVENOX) SYR SC SCH (20:33)
[2019-05-19 00:03] VITALS: BP 108/56
[2019-05-19] MEDS: HYDROcodone/APAP 5 MG/325 MG (LORTAB) TAB PO PRN ×4 (00:46→12:25)
[2019-05-19 04:26] VITALS: BP 110/79
[2019-05-19 05:16] LABS: BASOPHILS % (AUTO) 1 % (0-10); EOSINOPHILS # (AUTO) 0.2 10^3/uL (0.0-0.3); EOSINOPHILS % (AUTO) 3 % (0-10); HEMATOCRIT 32 % (40-54); HEMOGLOBIN 10.8 G/DL (13.3-17.7); LYMPHOCYTES # (AUTO) 1.4 X 10^3 (1.0-4.0); LYMPHOCYTES % (AUTO) 21 % (12-44); MEAN CORPUSCULAR HEMOGLOBIN 30 PG (25-34); MEAN CORPUSCULAR HGB CONC 33 G/DL (32-36); MEAN CORPUSCULAR VOLUME 89 FL (80-99); MONOCYTES # (AUTO) 1.1 X 10^3 (0.0-1.0); MONOCYTES % (AUTO) 17 % (0-12); NEUTROPHILS # (AUTO) 3.9 X 10^3 (1.8-7.8); NEUTROPHILS % (AUTO) 59 % (42-75); PLATELET COUNT 370 10^3/uL (130-400); RED CELL DISTRIBUTION WIDTH 12.2 % (10.0-14.5); WHITE BLOOD COUNT 6.6 10^3/uL (4.3-11.0)
[2019-05-19 05:31] LABS: PROTHROMBIN TIME PATIENT 13.4 SEC (12.2-14.7)
[2019-05-19 05:43] LABS: ALANINE AMINOTRANSFERASE 46 U/L (0-55); ALBUMIN 3.3 GM/DL (3.2-4.5); ALKALINE PHOSPHATASE 125 U/L (40-136); BILIRUBIN,TOTAL 0.5 MG/DL (0.1-1.0); BUN/CREATININE RATIO 11; CALCIUM 9.1 MG/DL (8.5-10.1); CARBON DIOXIDE 25 MMOL/L (21-32); CHLORIDE 103 MMOL/L (98-107); CREATININE SERUM 0.73 MG/DL (0.60-1.30); GFR ESTIMATED > 60; GLUCOSE 93 MG/DL (70-105); POTASSIUM 4.2 MMOL/L (3.6-5.0); SODIUM 140 MMOL/L (135-145); TOTAL PROTEIN 6.5 GM/DL (6.4-8.2)
[2019-05-19] MEDS: CYCLOBENZAPRINE 10 MG (FLEXERIL) TAB PO PRN (05:56)
[2019-05-19] MEDS: MULTIVIT W/MINERALS TAB (THERAGRAN M) PO SCH (05:56)
[2019-05-19 07:28] VITALS: BP 118/76
[2019-05-19] MEDS: SENNA W/DOCUSATE (SENOKOT S) TABLET PO SCH (08:09)
[2019-05-19] MEDS: POLYETHYLENE GLYCOL 17 GM (MIRALAX) PACK PO SCH (08:09)
[2019-05-19] MEDS: CALCIUM CARB + VIT D 600 MG (CALCARB + D) TAB PO SCH (08:09)
[2019-05-19] MEDS: DILTIAZEM 120 MG (CARDIZEM CD) CAP PO SCH (08:09)
--- NOTE | 2019-05-19 09:55 | Physical Therapy Daily Note ---
PT Daily Note-Current Subjective Patient agrees to PT. Requests pain medication Pain Numeric Pain Scale: 10-Worst Possible Pain Location: Left Location Body Site: Pelvic Pain Description: Acute Mental Status Patient Orientation: Normal For Age Transfers SCALE: Activities may be completed with or without assistive devices. 1-Sppkhtzaev-ouqtsuu completes the activity by him/herself with no assistance from a helper. 5-Set-up or Clean-up Assistance-helper sets up or cleans up; patient completes activity. [place] assists only prior to or following the activity. 4-Supervision or Touching Assistance-helper provides verbal cues and/or touching/steadying and/or contact guard assistance as patient completes activity. Assistance may be provided throughout the activity or intermittently. 3-Partial/Moderate Assistance-helper does LESS THAN HALF the effort. [place] lifts, holds or supports trunk or limbs, but provides less than half the effort. 2-Substantial/Maximal Assistance-helper does MORE THAN HALF the effort. [place] lifts or holds trunk or limbs and provides more than half the effort. 5-Qqxpcuvnu-xavivc does ALL the effort. Patient does none of the effort to com plete the activity. Or, the assistance of 2 or more helpers is required for the patient to complete the activity. If activity was not attempted, code reason: 7-Patient Refused. 9-Not Applicable-not attempted and the patient did not perform the activity before the current illness, exacerbation or injury. 10-Not Attempted due to Environmental Limitations-(lack of equipment, weather restraints, etc.). 88-Not Attempted due to Medical Conditions or Safety Concerns. Roll Left & Right (QC): 5 Sit to Lying (QC): 5 Lying to Sitting/Side of Bed(Q: 5 Sit to Stand (QC): 5 Weight Bearing Right Lower Extremity: Right Full Weight Bearing Left Lower Extremity: Left Weight Bearing/Tolerated Gait Training Does the Patient Walk?: Yes Distance: 175' Walk 10 feet (QC): 5 Walk 50 ft with 2 Turns(QC): 5 Walk 150 ft (QC): 5 Gait Assistive Device: Walker Matthias step to, antalgic gait sequence Exercises Supine Ex: Ankle pumps, Quad Set, Heel Slides Supine Reps: 12 Seated Therapy Exercises: Ankle pumps, Long arc quads Seated Reps: 15 Assessment Patient issued pain medication per RN prior to treatment. Patient tolerated treatment well and returned to bed. in and reports patient to dismiss to home on this date. PT Short Term Goals Short Term Goals Time Frame: May 25, 2019 Roll Left & Right: 5 Sit to lyin Lying to sitting on side of be: 5 Sit to stand: 4 Chair/fkq-uy-tgfmt transfer: 4 Toilet transfer: 4 Walk 10 feet: 4 Walk 50 feet with two turns: 4 PT Intermediate Goals Juice Weigher Goals PT Juice Weigher Goals Time Frame: Jun 03, 2019 Roll Left & Right (QC): 6 Sit to Lying (QC): 6 Lying-Sitting on Side/Bed(QC): 6 Sit to Stand (QC): 6 Chair/Ocp-ew-Hegbk Xfer(QC): 6 Toilet Transfer (QC): 6 Car Transfer (QC): 6 Does the Patient Walk: Yes Walk 10 feet (QC): 6 Walk 50ft with 2 Turns (QC): 6 Walk 150 ft (QC): 6 Walking 10ft on Uneven Surface: 6 1 Step (curb) (QC): 6 4 Steps (QC): 6 PT Plan Treatment/Plan Treatment Plan: Discontinue PT Treatment Plan: Bed Mobility, Concurrent Therapy, Education, Functional Activity Avis, Functional Strength, Gait, Safety, Therapeutic Exercise, Transfers Treatment Duration: Jun 03, 2019 Frequency: 11 times per week Estimated Hrs Per Day: .5 hour per day Patient and/or Family Agrees t: Yes Time/GCodes Time In: 910 Time Out: 933 Total Billed Treatment Time: 23 Total Billed Treatment 1 visit GT 15 min EX 8 min BIJAN VILLEGAS PT May 19, 2019 09:55
--- NOTE | 2019-05-19 10:25 | Progress Note - Ortho ---
Progress Note Subjective Date of Exam 05/19/19 Chief Complaint POD#4 open reduction internal fixation olecranon fracture left elbow HPI/Events since last exam Mr. Wheeler is doing very well. His pain now is just anterior pelvis. No problems with the left elbow. No problems with the new cast Review of Systems Reviewed and no additions or changes Allergies: Coded Allergies: cortisone (Unverified Allergy, Mild, 09/18/08) Isosorbide Mononitrate (Unverified Allergy, Unknown, 02/26/11) Home Meds Reported Medications Multivitamin (Multivitamins) 1 Each Capsule, 1 EACH PO DAILY, CAP 05/15/19 Calcium Carbonate/Vitamin D3 (Calcium 600 + Vit D 200 Tablet) 1 Each Tablet, 1 EACH PO DAILY, TAB 05/15/19 Hydrocodone/Acetaminophen (Hydrocodone-Acetamin 5-325 mg) 1 Each Tablet, 1 TAB PO DAILY PRN for PAIN-MODERATE (5-7) 05/15/19 Diltiazem HCl (Diltiazem ER) 120 Mg Capsule.er, 120 MG PO DAILY, CAP 05/02/19 Alendronate Sodium (Fosamax) 70 Mg Tablet, 70 MG PO WED, TAB 05/02/19 Warfarin Sodium (Warfarin Sodium) 5 Mg Tablet, 5 MG PO DAILY, TAB TAKES 5 MG ALONG WITH 1 & 1/2 (1MG) TO EQUAL 6.5MG DAILY 11/28/18 Warfarin Sodium (Warfarin Sodium) 1 Mg Tablet, 1.5 MG PO DAILY, TAB TAKES 1 & 1/2 TABS DAILY ALONG WITH A 5MG TO EQUAL 6.5MG DAILY 11/28/18 Atorvastatin Calcium (Atorvastatin Calcium) 40 Mg Tablet, 40 MG PO HS, TAB 11/28/18 Discontinued Reported Medications Hydrocodone/Acetaminophen ([place] 5-325 Tablet) 1 Each Tablet, 1 TAB PO Q8H PRN for PAIN-MODERATE (5-7) MDD 10 TABS, TAB 05/02/19 Discontinued Scripts Cefuroxime Axetil (Cefuroxime) 500 Mg Tablet, 500 MG PO BID for 5 Days, #10 TAB Prov:FELICIA MACIAS MD FACP FACC CCDS 05/02/19 Objective Exam Constitutional: [] HEENT: [] Neck: [] Cardiovascular: [] Respiratory: [] Gastrointestinal: [] Genitourinary: [] Skin: [] Back/Spine: [] Extremities: [Ambulating with a hemiwalker. Mild pain anterior left pelvis. Minimal pain over the SI joint Cast left upper extremity in good condition. Moving the wrist and hand without problems. Normal sensation to the fingers and thumb with good capillary refill] Neurologic: [] Psychiatric: [] Hematologic/lymphatic/immunologic: [] Vital Signs Vital Signs Date Time Temp Pulse Resp B/P (MAP) Pulse Ox O2 Delivery O2 Flow Rate FiO2 05/19/19 08:00 Room Air 05/19/19 07:28 36.1 83 18 118/76 (90) 97 Room Air 05/19/19 07:00 91 05/19/19 04:26 36.2 94 18 110/79 (89) 96 Room Air 05/19/19 01:00 91 05/19/19 00:03 36.2 95 20 108/56 (73) 97 Room Air 05/18/19 20:45 Room Air 05/18/19 20:02 36.3 94 20 105/73 (84) 95 Room Air 05/18/19 19:00 105 05/18/19 16:00 36.2 87 18 111/74 (86) 96 Room Air 05/18/19 12:21 130 05/18/19 11:35 35.3 103 20 119/76 (90) 95 Room Air I & O 05/19/19 07:00 Intake Total 6060 ml Output Total 6950 ml Balance -890 ml Lab Results Laboratory Tests 05/19/19 05:00: White Blood Count 6.6, Red Blood Count 3.63L, Hemoglobin 10.8L, Hematocrit 32L, Mean Corpuscular Volume 89, Mean Corpuscular Hemoglobin 30, Mean Corpuscular Hemoglobin Concent 33, Red Cell Distribution Width 12.2, Platelet Count 370, Mean Platelet Volume 9.0, Neutrophils (%) (Auto) 59, Lymphocytes (%) (Auto) 21, Monocytes (%) (Auto) 17H, Eosinophils (%) (Auto) 3, Basophils (%) (Auto) 1, Neutrophils # (Auto) 3.9, Lymphocytes # (Auto) 1.4, Monocytes # (Auto) 1.1H, Eosinophils # (Auto) 0.2, Basophils # (Auto) 0.0, Prothrombin Time 13.4, INR Comment 1.0, Sodium Level 140, Potassium Level 4.2, Chloride Level 103, Carbon Dioxide Level 25, Anion Gap 12, Blood Urea Nitrogen 8, Creatinine 0.73, Estimat Glomerular Filtration Rate > 60, BUN/Creatinine Ratio 11, Glucose Level 93, Calcium Level 9.1, Corrected Calcium 9.7, Total Bilirubin 0.5, Aspartate Amino Transf (AST/SGOT) 42H, Alanine Aminotransferase (ALT/SGPT) 46, Alkaline Phosphatase 125, Total Protein 6.5, Albumin 3.3 Microbiology 05/14/19 MRSA Screen - Final, Complete MRSA not isolated Assessment and Plan Assessment Doing well postop Problem List Unchanged Plan Continue with hemiwalker ambulation weight-bear as tolerated on the left. Continue with cast. Patient is okay with discharged from an orthopedic point of view. I'll see him back in follow-up in approximately 2 weeks postop and remove the cast, remove the juju and repeat x-rays of the left elbow and left pelvis Final Diagonsis Status post open reduction internal fixation olecranon fracture left elbow Superior pubic rami fracture left Sprain left sacroiliac joint Level of the visit: Level 3 Clinical Quality Measures DVT/VTE Risk/Contraindication: Risk Factor Score Per Nursin RFS Level Per Nursing on Admit: 4+=Very High MARSHALL ARRIOLA MD May 19, 2019 10:25
[2019-05-19] MEDS ORDERED: CYCL10TA9 PO (11:04)
[2019-05-19] MEDS ORDERED: FENT1PAT8 TD (11:04)
[2019-05-19] MEDS ORDERED: ACHD5005 PO (11:04)
[2019-05-19] MEDS ORDERED: ENOX80DI12 SQ (11:04)
[2019-05-19] MEDS ORDERED: SENN-20 PO (11:04)
--- NOTE | 2019-05-19 11:05 | Discharge Summary ---
Discharge Summary Hospital Course Was the Problem List Reviewed?: Yes Problems/Dx: (1) Status post fall Status: Acute (2) Pacemaker (3) Fracture of left pelvis Status: Acute Qualifiers: Qualified Codes: S32.512A - Fracture of superior rim of left pubis, initial encounter for closed fracture (4) Left elbow fracture Status: Acute Qualifiers: Qualified Codes: S42.402A - Unspecified fracture of lower end of left humerus, initial encounter for closed fracture (5) Multiple skin tears Status: Acute (6) Atrial fibrillation with rapid ventricular response Status: Acute (7) Smoker Status: Chronic (8) Alcohol dependence Status: Chronic Hospital Course Date of Admission: May 12, 2019 at 19:27 Admission Diagnosis : Family Physician/Provider: Mikala Magallon Aprn Date of Discharge: 05/19/19 Discharge Diagnosis: Fall, left elbow fracture, left pelvis fracture, AF w/RVR, Pacemaker recent replacement Hospital Course: [Pt had a lengthy hospital course for 7 days after he suffered a fall with left elbow fracture left pelvic fracture Dr. Abreu completed surgery repair on the left elbow fracture pt was given Dilaudid and Lortab transition to Fentanyl patch of 25 mcg in addition to Lortab in between. Bowel function regain normalcy A-fib with RVR managed by Dr. Nielson and pt was deemed stable for discharge for out patient therapy he did not require in patient rehab. ] Labs and Pending Lab Test: Laboratory Tests 05/19/19 05:00: White Blood Count 6.6, Red Blood Count 3.63L, Hemoglobin 10.8L, Hematocrit 32L, Mean Corpuscular Volume 89, Mean Corpuscular Hemoglobin 30, Mean Corpuscular Hemoglobin Concent 33, Red Cell Distribution Width 12.2, Platelet Count 370, Mean Platelet Volume 9.0, Neutrophils (%) (Auto) 59, Lymphocytes (%) (Auto) 21, Monocytes (%) (Auto) 17H, Eosinophils (%) (Auto) 3, Basophils (%) (Auto) 1, Neutrophils # (Auto) 3.9, Lymphocytes # (Auto) 1.4, Monocytes # (Auto) 1.1H, Eosinophils # (Auto) 0.2, Basophils # (Auto) 0.0, Prothrombin Time 13.4, INR Comment 1.0, Sodium Level 140, Potassium Level 4.2, Chloride Level 103, Carbon Dioxide Level 25, Anion Gap 12, Blood Urea Nitrogen 8, Creatinine 0.73, Estimat Glomerular Filtration Rate > 60, BUN/Creatinine Ratio 11, Glucose Level 93, Calcium Level 9.1, Corrected Calcium 9.7, Total Bilirubin 0.5, Aspartate Amino Transf (AST/SGOT) 42H, Alanine Aminotransferase (ALT/SGPT) 46, Alkaline Phosphatase 125, Total Protein 6.5, Albumin 3.3 Microbiology 05/14/19 MRSA Screen - Final, Complete MRSA not isolated Home Meds Active Lovenox (Enoxaparin Sodium) 80 Mg/0.8 Ml Syringe 80 Mg SQ Q12H Cyclobenzaprine HCl 10 Mg Tablet 10 Mg PO Q8H PRN Senna-Time S Tablet (Sennosides/Docusate Sodium) 1 Each Tablet 1 Ea PO BID Hydrocodone/Acetaminophen 5/325mg Tablet (Acetaminophen/Hydrocodone Bitart) 1 Tab Tab 1 Tab PO Q3H PRN Fentanyl Patch 25 MCG (Fentanyl) 1 Each Patch.td72 25 Mcg TD Q72H Reported Multivitamins (Multivitamin) 1 Each Capsule 1 Each PO DAILY Calcium 600 + Vit D 200 Tablet (Calcium Carbonate/Vitamin D3) 1 Each Tablet 1 Each PO DAILY Hydrocodone-Acetamin 5-325 mg (Hydrocodone/Acetaminophen) 1 Each Tablet 1 Tab PO DAILY PRN Diltiazem ER (Diltiazem HCl) 120 Mg Capsule.er 120 Mg PO DAILY Fosamax (Alendronate Sodium) 70 Mg Tablet 70 Mg PO WED Warfarin Sodium 5 Mg Tablet 5 Mg PO DAILY TAKES 5 MG ALONG WITH 1 & 1/2 (1MG) TO EQUAL 6.5MG DAILY Warfarin Sodium 1 Mg Tablet 1.5 Mg PO DAILY TAKES 1 & 1/2 TABS DAILY ALONG WITH A 5MG TO EQUAL 6.5MG DAILY Atorvastatin Calcium 40 Mg Tablet 40 Mg PO HS Assessment/Pt Instructions [facility] next week Discharge Planning: <30 minutes discharge planning Discharge Instructions Discharge Diet: No Restrictions Activity as Tolerated: Yes Discharge Physical Examination Vital Signs Vital Signs Date Time Temp Pulse Resp B/P (MAP) Pulse Ox O2 Delivery O2 Flow Rate FiO2 05/19/19 08:00 Room Air 05/19/19 07:28 36.1 83 18 118/76 (90) 97 05/17/19 20:00 3.00 General Appearance: No Apparent Distress, WD/WN Respiratory: Lungs Clear, Normal Breath Sounds Cardiovascular: Regular Rate, Rhythm Neurologic/Psychiatric: Alert, Oriented x3, No Motor/Sensory Deficits, Normal Mood/Affect Allergies: Coded Allergies: cortisone (Unverified Allergy, Mild, 09/18/08) Isosorbide Mononitrate (Unverified Allergy, Unknown, 02/26/11) Discharge Summary Date of Admission May 12, 2019 at 19:27 Date of Discharge Discharge Date: May 19, 2019 Admission Diagnosis left displaced olecranon fracture Left pelvic pubic rami fracture Chronic atrial fibrillation status post pacemaker placement Osteoporosis with multiple fractures Multiple falls Plan to bridge with Lovenox and surgery will be Wednesday Discharge Diagnosis Assessment: Left pelvic fracture Left elbow fracture s/p repair POD # 3 Pacemaker replacement [address] Rock AF w/RVR requiring Dr Nielson consultation Constipation now resolved Severe pain required Dilaudid IV so now placed Fentanyl patch 25mcg and Lortab prn OAC with Coumadin Plan: Pain control with Fentanyl patch 25mcg started yesterday PT/OT IRF Cardiology Bowel regimen to maintain Restart Coumadin (1) Status post fall Status: Acute (2) Pacemaker (3) Fracture of left pelvis Status: Acute Qualifiers: Qualified Codes: S32.512A - Fracture of superior rim of left pubis, initial encounter for closed fracture (4) Left elbow fracture Status: Acute Qualifiers: Qualified Codes: S42.402A - Unspecified fracture of lower end of left humerus, initial encounter for closed fracture (5) Multiple skin tears Status: Acute (6) Atrial fibrillation with rapid ventricular response Status: Acute (7) Smoker Status: Chronic (8) Alcohol dependence Status: Chronic Clinical Quality Measures DVT/VTE Risk/Contraindication: Risk Factor Score Per Nursin RFS Level Per Nursing on Admit: 4+=Very High EDNA SUTTON DO May 19, 2019 11:05
[2019-05-19 12:19] VITALS: BP 106/65
--- NOTE | 2019-05-19 12:54 | Cardiology Progress Note ---
Cardiology SOAP Progress Note Subjective: No cardiac complaints. Objective: I&O/Vital Signs Weight (Pounds): 170 Weight (Ounces): 15.0 Weight (Calculated Kilograms): 77.675312 Constitutional: appears stated age, AAO x 3; No apparent distress; well- developed, well-nourished Respiratory: chest is bilaterally symmetric, lungs clear to auscultation Cardiovascular: irregularly irregular, S1 and S2 Gastrointestional: soft, audible bowel sounds; No spleenomegaly Extremities: normal range of motion, non-tender, normal inspection; No clubbing, No cyanosis; no lower extremity edema bilateral; No significant edema Neurologic/Psychiatric: no motor/sensory deficits, alert, oriented x 3, power is 5/5 both on sides Skin: normal color; No rash, No ulcerations Results/Procedures: Labs Microbiology 05/14/19 MRSA Screen - Final, Complete MRSA not isolated A/P: Assessment/Dx: Mechanical fall, Status post orthopedic surgery, Cardiac pacemaker, Chronic atrial fibrillation, RVR, On oral anticoagulation, subtherapeutic INR Plan: Mechanical fall, Status post orthopedic surgery, Cardiac pacemaker, no active issues. Chronic atrial fibrillation, currently well controlled. On oral anticoagulation, continue Coumadin therapy. Check INR. Follow-up with Dr. Rock as an outpatient. Thank you for your consultation. Please call me if you have any questions. Tiffanie Nielson MD, FACP, FACC, FSCAI, FHRS, CCDS Interventional Cardiology Cardiac Electrophysiology Vascular Medicine and Endovascular Interventions Breonna NIELSON MD May 19, 2019 12:54
[2019-05-19 13:00] VITALS: BP 106/65
[2019-05-19] MEDS ORDERED: warFARin 3 MG (COUMADIN) TAB PO SCH (18:00)
[2019-05-20] MEDS ORDERED: PATCH REMOVAL TP SCH (13:00)
== END 2019-05-19 13:00 | disposition home or self-care (01) | DRG 511 ==
LOC: EDUNIT# 17:25 → ER 17:26 → 4TH 19:27
PROVIDERS: ADMIT Internal Medicine; ATTEND Internal Medicine
PROC: 0RSM04Z Reposition Left Elbow Joint with Internal Fixation Device, Open Approach (ICD-10-PCS; principal; 2019-05-15 08:00)
DX: S52.022A Displaced fracture of olecranon process without intraarticular extension of left ulna, initial encounter for closed fracture (principal); S32.502A Unspecified fracture of left pubis, initial encounter for closed fracture; I48.20 Chronic atrial fibrillation, unspecified; M81.0 Age-related osteoporosis without current pathological fracture; I49.5 Sick sinus syndrome; S40.812A Abrasion of left upper arm, initial encounter; S60.512A Abrasion of left hand, initial encounter; S01.112A Laceration without foreign body of left eyelid and periocular area, initial encounter; K59.00 Constipation, unspecified; I10 Essential (primary) hypertension; E78.00 Pure hypercholesterolemia, unspecified; I25.10 Atherosclerotic heart disease of native coronary artery without angina pectoris; S33.6XXA Sprain of sacroiliac joint, initial encounter; Z87.891 Personal history of nicotine dependence; Z95.0 Presence of cardiac pacemaker; Z79.01 Long term (current) use of anticoagulants; W19.XXXA Unspecified fall, initial encounter; Y92.017 Garden or yard in single-family (private) house as the place of occurrence of the external cause
CPT/HCPCS: 29105; 36415; 70450; 70486; 71045; 72125; 72128; 72131; 73070; 73080; 73552; 80048; 80053; 80306; 80320; 81000; 82550; 82553; 83735; 83874; 85007; 85025; 85027; 85610; 85730; 87081; 90471; 90715; 93041; 93306; 94664; 94760; 96361; 96374; 96375

== ENCOUNTER → 2019-05-29 | Outpatient (CLI) | payer OTHER ==
[~2019-05-29] MED LIST changes: +CALC-6 PO; +CYCL10TA9 PO; +DILT120C88 PO; -DILT120C94 PO; -DILT240C PO; +DILT240C91 PO; +FENT1PAT8 TD; +MULT1CAP27 PO; +SENN-20 PO
--- NOTE | 2019-05-29 10:54 | Diagnostic Imaging Report ---
INDICATION: Left elbow fracture. Time of exam 10:32 AM Correlation is made with prior radiograph from 05/12/2019. 3 views left elbow demonstrate postoperative changes. There is cerclage wire as well as K wires transfixing the olecranon fracture. Fracture line does remain partially visible. Alignment is anatomic. No significant joint effusion is seen. IMPRESSION: Postoperative changes involving the olecranon fracture. Fracture line does remain partly visible. Dictated by: Dictated on workstation # [id number]
== END ==
LOC: ORTHO 09:59
PROVIDERS: ATTEND Orthopaedic Surgery
DX: S52.032D Displaced fracture of olecranon process with intraarticular extension of left ulna, subsequent encounter for closed fracture with routine healing (principal)
CPT/HCPCS: 73080

== ENCOUNTER → 2019-06-12 | Outpatient (CLI) | payer OTHER ==
--- NOTE | 2019-06-12 11:12 | Diagnostic Imaging Report ---
INDICATION: Fracture of the olecranon process. COMPARISON: May 29, 2019 and May 12, 2019. TECHNIQUE: Three radiographs of the left elbow dated June 12, 2019. FINDINGS: Cerclage wires and K-wires with associated screw are again identified transfixing previously noted olecranon fracture. Alignment is stable. Fracture plane remains visualized though slightly less well seen. Additionally, increasing calcifications are seen about the fracture. No evidence of hardware complication. Thin calcific density adjacent to the radial head is unchanged from prior imaging. No new fracture or dislocation. No destructive osseous process. Elbow joint effusion is again noted. Soft tissue swelling about the elbow appears similar. No suspicious radiopaque foreign body. IMPRESSION: Slight interval healing is suggested involving previously noted internally fixated olecranon fracture remaining in stable alignment. Recommend continued radiographic follow-up. No new acute osseous abnormality. Persistent elbow joint effusion and soft tissue swelling about the elbow. Dictated by: Dictated on workstation # [id number]
== END ==
LOC: ORTHO 10:27
PROVIDERS: ATTEND Orthopaedic Surgery
DX: S52.022A Displaced fracture of olecranon process without intraarticular extension of left ulna, initial encounter for closed fracture (principal); X58.XXXA Exposure to other specified factors, initial encounter
CPT/HCPCS: 73080

== ENCOUNTER → 2019-06-26 | Outpatient (CLI) | payer OTHER ==
--- NOTE | 2019-06-26 11:33 | Diagnostic Imaging Report ---
INDICATION: Fracture follow-up. COMPARISON: Comparison made with prior examination 06/12/2019. FINDINGS: There has been open reduction and internal fixation of proximal ulnar fracture with pins and cerclage wire. Alignment is grossly normal. There are degenerative changes. There is no acute fracture or dislocation. IMPRESSION: Stable postsurgical changes in the proximal ulna as described. Dictated by: Dictated on workstation # [id number]
== END ==
LOC: ORTHO 10:22
PROVIDERS: ATTEND Orthopaedic Surgery
DX: S52.032A Displaced fracture of olecranon process with intraarticular extension of left ulna, initial encounter for closed fracture (principal); X58.XXXA Exposure to other specified factors, initial encounter
CPT/HCPCS: 73080

== ENCOUNTER → 2019-07-10 | Outpatient (CLI) | payer OTHER ==
--- NOTE | 2019-07-10 10:10 | Diagnostic Imaging Report ---
INDICATION: Ulnar fracture ORIF recheck COMPARISON: 06/26/2019 FINDINGS: 3 views of the left elbow demonstrate intact proximal ulna wires and pins. Single screw is present. The fracture site is well aligned. Degenerative joint disease is present. IMPRESSION: Stable ORIF of the proximal ulna. Dictated by: Dictated on workstation # [id number]
== END ==
LOC: ORTHO 09:38
PROVIDERS: ATTEND Orthopaedic Surgery
DX: S52.032A Displaced fracture of olecranon process with intraarticular extension of left ulna, initial encounter for closed fracture (principal); X58.XXXA Exposure to other specified factors, initial encounter
CPT/HCPCS: 73080

== ENCOUNTER → 2019-07-31 | Outpatient (CLI) | payer OTHER ==
[~2019-07-31] MED LIST changes: -HYDR-3812 PO
--- NOTE | 2019-07-31 11:44 | Diagnostic Imaging Report ---
INDICATION: Fracture of the olecranon process, follow-up. COMPARISON: July 10, 2019. TECHNIQUE: Three radiographs of the left elbow dated July 31, 2019. FINDINGS: Wires and pins are again identified associated with previously noted internally fixated olecranon fracture. No evidence of hardware complication. Alignment is well maintained. Minimal persistent fracture lucencies remain. Small elbow joint effusion is present. No new fracture or dislocation. No destructive osseous process. No suspicious radiopaque foreign body. IMPRESSION: Continued interval healing of previously noted internally fixated olecranon fracture without evidence of hardware complication. Small elbow joint effusion. Dictated by: Dictated on workstation # [id number]
== END ==
LOC: ORTHO 09:20
PROVIDERS: ATTEND Orthopaedic Surgery
DX: S52.032D Displaced fracture of olecranon process with intraarticular extension of left ulna, subsequent encounter for closed fracture with routine healing (principal); X58.XXXD Exposure to other specified factors, subsequent encounter
CPT/HCPCS: 73080

== ENCOUNTER → 2019-08-21 | Outpatient (CLI) | payer OTHER | LOC: ORTHO 09:51 | PROVIDERS: ATTEND Orthopaedic Surgery | DX: S52.032D Displaced fracture of olecranon process with intraarticular extension of left ulna, subsequent encounter for closed fracture with routine healing (principal); X58.XXXD Exposure to other specified factors, subsequent encounter ==

== ENCOUNTER → 2019-11-28 | Outpatient (CLI) | payer OTHER ==
[~2019-11-28] VITALS: Ht 170 cm; Wt 82.0 kg
[~2019-11-28] MED LIST changes: +REGADENOSON 0.4 MG/5 ML SYR (LEXISCAN) IV ONE
[2019-11-28] MEDS: CATHETER FLUSH 10 ML SYR IV PRN ×2 (11:19→12:29)
[2019-11-28 12:27] VITALS: BP 131/95
--- NOTE | 2019-11-29 09:21 | STRESS TEST ---
DATE OF SERVICE: 11/28/2019 RESTING AND POST REGADENOSON TECHNETIUM-99M TETROFOSMIN SPECT CT IMAGING ORDERING PHYSICIAN: Dr. Rock. PRIMARY PHYSICIAN: [facility]. CLINICAL DIAGNOSIS: Coronary artery disease. Baseline images were carried out after injection of 10.99 mCi of technetium-99m Tetrofosmin. This was followed by 0.4 mg Regadenoson and 32.3 mCi of technetium-99m Tetrofosmin. The electrocardiogram showed atrial fibrillation. The rhythm was intermittently paced. There was nonspecific T-wave abnormality. The electrocardiogram did not change significantly with the Regadenoson infusion. Review of images at rest and following stress does not indicate any significant perfusion defects consistent with myocardial ischemia or infarction. Gated images show normal global left ventricular systolic function with a calculated ejection fraction of 58%. Left ventricular end diastolic volume is 45 mL. TID is absent (1.05). CONCLUSIONS: 1. No evidence of any significant myocardial ischemia or infarction on this study. 2. Normal regional wall motion. 3. Normal global left ventricular systolic function with an ejection fraction of 58%. Job ID: [id number] DocumentID: [id number] Dictated Date: 11/29/2019 09:09:37 Tire Finisher Date: 11/29/2019 09:20:56 Dictated By: FELICIA ROCK MD, MA, FACP, FACC,
== END ==
LOC: CARD 10:59
PROVIDERS: ATTEND Internal Medicine Cardiovascular Disease
DX: I25.10 Atherosclerotic heart disease of native coronary artery without angina pectoris (principal); I65.29 Occlusion and stenosis of unspecified carotid artery; I48.21 Permanent atrial fibrillation; Z95.0 Presence of cardiac pacemaker
CPT/HCPCS: 78452; 93017; A9502

== ENCOUNTER → 2020-09-04 | Outpatient (CLI) | payer OTHER ==
[~2020-09-04] MED LIST changes: -CALC-6 PO; +CALC1TAB84 PO; -REGADENOSON 0.4 MG/5 ML SYR (LEXISCAN) IV ONE; -WARF1TAB82 PO; +WRF1T PO
--- NOTE | 2020-09-04 12:57 | Diagnostic Imaging Report ---
EXAMINATION: Right ankle radiographs, 3 views, 4 images. COMPARISON: None. HISTORY: 64-year-old male, right ankle pain. FINDINGS: The alignment of the ankle mortise is unremarkable. There is no identified acute fracture. There is no tibiotalar joint effusion. There are vascular related calcifications. The joint spaces appear well-preserved. There is no prominent focal soft tissue swelling. IMPRESSION: Unremarkable radiographs of the right ankle. Dictated by: Dictated on workstation # [id number]
== END ==
LOC: RAD FS 09:43
PROVIDERS: ATTEND Nurse Practitioner Family
DX: M25.571 Pain in right ankle and joints of right foot (principal)
CPT/HCPCS: 73610

== ENCOUNTER → 2020-10-04 | Outpatient (CLI) | payer OTHER ==
--- NOTE | 2020-10-04 13:05 | Diagnostic Imaging Report ---
INDICATION: Knee pain. COMPARISON: None. FINDINGS: 3 views of the right knee joint demonstrate no acute fracture or dislocation. No focal osseous lesions are seen. No significant joint effusion is seen. The surrounding soft tissue structures are unremarkable. There are no radiopaque foreign bodies. IMPRESSION: 1. No acute fractures or dislocations of the right knee joint. Dictated by: Dictated on workstation # [id number]
== END ==
LOC: RAD FS 12:21
PROVIDERS: ATTEND Nurse Practitioner Family
DX: M25.561 Pain in right knee (principal)
CPT/HCPCS: 73562

== ENCOUNTER 2022-03-18 05:33 | Outpatient (CLI) | payer MEDICARE, OTHER ==
[~2022-03-18] VITALS: Ht 170.2 cm; Wt 82.0 kg
[~2022-03-18 05:33] MED LIST changes: -ALEN70TA2 PO; +ALEN70TA85 PO; +CYCL10TA25 PO; -CYCL10TA9 PO
[2022-03-18] MEDS ORDERED: VITA100033 PO (14:48)
[2022-03-18] MEDS ORDERED: WARF7.5T3 PO (14:48)
== END 2022-03-18 14:57 | disposition home or self-care (01) ==
LOC: PREOP 05:33
PROVIDERS: ATTEND Surgery
DX: Z01.818 Encounter for other preprocedural examination (principal)

== ENCOUNTER 2022-03-31 08:11 | Day surgery (SDC) | payer MEDICARE, OTHER ==
[~2022-03-31] VITALS: Ht 170 cm; Wt 82.0 kg
[~2022-03-31 08:11] MED LIST changes: +VITA100033 PO; +WARF7.5T3 PO
[2022-03-31] MEDS ORDERED: LACTATED RINGERS 1,000 ML IV STA (08:15)
[2022-03-31 08:30] VITALS: BP 126/89
[2022-03-31 09:09] LABS: PROTHROMBIN TIME PATIENT 13.7 SEC (12.2-14.7)
[2022-03-31] MEDS ORDERED: PROPOFOL INJECTION 50 ML IV ONE ×2 (09:40→09:59)
[2022-03-31] MEDS ORDERED: MIDAZOLAM 2 MG/2 ML (VERSED) VIAL ONE (09:40)
[2022-03-31] MEDS ORDERED: proPOfol 200 MG/20 ML (DIPRIVAN) VIAL IV ONE (09:58)
--- NOTE | 2022-03-31 10:12 | Discharge Inst-Simple/Standard ---
Discharge Inst-Standard Reconcile Patient Problems Problems Reviewed?: Yes Patient Instructions/Follow Up Plan of Care/Instructions/FU: Follow up with Dr. Jade in 2 weeks Activity as Tolerated: Yes Discharge Diet: No Restrictions, Regular Diet CANDELARIA JADE DO Mar 31, 2022 10:12
[2022-03-31 10:15] VITALS: BP 113/73
[2022-03-31 10:20] VITALS: BP 109/73
[2022-03-31 10:25] VITALS: BP 107/73
[2022-03-31 10:30] VITALS: BP 107/73
[2022-03-31 11:05] VITALS: BP 107/73
--- NOTE | 2022-03-31 11:33 | Anesthesia-General Post-Op ---
MAC Patient Condition Mental Status/LOC: Same as Preop Cardiovascular: Satisfactory Nausea/Vomiting: Absent Respiratory: Satisfactory Pain: Controlled Complications: Absent Post Op Complications Complications None Follow Up Care/Instructions Patient Instructions None needed. Anesthesiology Discharge Order Discharge Order Patient is doing well, no complaints, stable vital signs, no apparent adverse anesthesia problems. No complications reported per nursing. ANDREA CARUSO CRNA Mar 31, 2022 11:33
--- NOTE | 2022-03-31 15:46 | OPERATIVE REPORT ---
DATE OF SERVICE: 03/31/2022 PREOPERATIVE DIAGNOSIS: History of polyps. POSTOPERATIVE DIAGNOSIS: Polyps of colon. SURGEON: Candelaria Jade DO. ANESTHESIA: Per BOOKING SUPERVISOR. ESTIMATED BLOOD LOSS: None. PROCEDURES PERFORMED: Colonoscopy with hot biopsy polypectomy possible x1 and snare polypectomy x2. INDICATIONS FOR PROCEDURE: The patient is a 66-year-old male with history of polyps. He understood the risks and benefits of the procedure and wished to proceed. Consent was signed in the chart. DESCRIPTION OF PROCEDURE: The patient was taken to the endoscopy suite and placed in the left lateral recumbent position. A timeout was performed. Digital rectal exam was performed. No palpable polyps, masses or ulcerations. Scope inserted in the rectum and advanced all the way down to the cecum with minimal difficulty. Prep was adequate. Scope was slowly retracted back. No polyps, masses or ulcerations in the cecum or ascending colon. In the transverse colon, two polyps were present, which hot biopsy polypectomy was performed on one and a snare polypectomy was performed on the other. Scope was then slowly retracted back. No polyps, masses or ulceration within the remainder of the transverse, descending and sigmoid colon. Once in the rectum, another polyp was present, where snare polypectomy was performed. Scope was retroflexed and there was no other pathology. Scope was returned to its normal position and slowly withdrawn until completely removed. The patient tolerated the procedure well with no complications and taken to the recovery room in a stable condition. RECOMMENDATIONS: The patient will need a repeat colonoscopy in five years. Any issues before that be seen at that time. He will follow up on pathology in two weeks. Job ID: [id number] DocumentID: [id number] Dictated Date: 03/31/2022 10:18:30 Acute Dialysis Nurse Date: 03/31/2022 15:45:00 Dictated By: CANDELARIA JADE DO
== END 2022-03-31 11:15 | disposition home or self-care (01) ==
LOC: ENDO 08:11
PROVIDERS: ATTEND Surgery
DX: Z12.11 Encounter for screening for malignant neoplasm of colon (principal); D12.3 Benign neoplasm of transverse colon; K62.1 Rectal polyp; Z28.310 Unvaccinated for COVID-19; Z95.0 Presence of cardiac pacemaker; Z79.01 Long term (current) use of anticoagulants; Z87.891 Personal history of nicotine dependence
CPT/HCPCS: 36415; 85610; 85730; 88305

== ENCOUNTER → 2022-04-07 | Outpatient (CLI) | payer MEDICARE, OTHER ==
[~2022-04-07] MED LIST changes: +REGADENOSON 0.4 MG/5 ML SYR (LEXISCAN) IV ONE
[2022-04-07] MEDS: CATHETER FLUSH 10 ML SYR IVP PRN ×2 (08:00→09:21)
[2022-04-07 09:11] VITALS: BP 128/88
== END ==
LOC: CARD 07:45
PROVIDERS: ATTEND Nurse Practitioner Family
DX: I25.10 Atherosclerotic heart disease of native coronary artery without angina pectoris (principal)
CPT/HCPCS: 78452; 93017; A9502

== ENCOUNTER → 2022-04-29 | Outpatient (CLI) | payer MEDICARE, OTHER ==
[~2022-04-29] MED LIST changes: -REGADENOSON 0.4 MG/5 ML SYR (LEXISCAN) IV ONE
== END ==
LOC: CARD 13:16
PROVIDERS: ATTEND Internal Medicine Cardiovascular Disease
DX: I51.7 Cardiomegaly (principal); I48.20 Chronic atrial fibrillation, unspecified
CPT/HCPCS: 93306